=== PATIENT | female | born 1955 | race Caucasian/White ===

== ENCOUNTER → 2021-06-04 10:36 | Outpatient (BNVA) | payer MEDICARE, SELFPAY | PROVIDERS: PCP Internal Medicine; Visit Provider Internal Medicine Pulmonary Disease | DX: J84.9 Interstitial pulmonary disease, unspecified (principal); J44.9 Chronic obstructive pulmonary disease, unspecified; G47.33 Obstructive sleep apnea (adult) (pediatric); R05.3 Chronic cough; R06.00 Dyspnea, unspecified; K21.9 Gastro-esophageal reflux disease without esophagitis; E66.01 Morbid (severe) obesity due to excess calories; Z99.81 Dependence on supplemental oxygen | CPT/HCPCS: 94618; 99202 ==

== ENCOUNTER 2021-06-12 10:41 | Outpatient (REF) | payer MEDICARE, SELFPAY ==
--- NOTE | ~2021-06-12 | CT_ITS ---
EXAMINATION: CT CHEST WITHOUT CONTRAST CLINICAL INFORMATION: Interstitial pulmonary disease. COMPARISON: None TECHNIQUE: Multidetector volumetric CT imaging of the chest was done. Axial MIP volume rendering provided. Sagittal and coronal reformatted images were obtained. This CT examination was performed using dose optimization techniques as appropriate, variously including the following: *Automated exposure control *Adjustment of mA and/or kV according to patient size (this includes techniques or standardized protocols for targeted exams where dose is matched to indication/reason for exam; i.e. extremities or head) *Use of iterative reconstruction technique DLP: 325 mGy-cm FINDINGS: SUPERVISOR FISH BAIT PROCESSING: Well expanded lungs LUNGS: The lungs are well-expanded with platelike atelectasis in the lingula and subpleural patchy opacity left lower lobe laterally likely scarring. Atelectasis or scarring is seen in the right medial and lateral basal segment. There is 2 mm nodule left lower lobe axial image 137/6 no MEDIASTINUM: The heart size and the great vessels are normal caliber. There is a 1.6 cm right pretracheal lymph node with central fatty lucency likely a normal lymph node. No additional lymph nodes seen. Central trachea and the bronchi are widely patent. There is no pericardial effusion. PLEURA: There is no pleural effusion. No pleural mass or thickening. AXILLA: No lymphadenopathy. UPPER ABDOMEN: Visualized liver, spleen, pancreas and bilateral adrenal glands are unremarkable. OSSEOUS STRUCTURES: There is moderate ventral spondylosis mid and lower dorsal spine. No lytic or sclerotic process seen. CT/CT chest wo con IMPRESSION: 2 mm nodule left lower lobe axial image 137/6. No interstitial thickening. There is however minimal subpleural parenchymal opacity left lower lobe likely scarring. There is atelectatic changes or scarring in the right medial and lateral basal segment of lower lobe. Fleischner guidelines were followed.
== END 2021-06-12 10:42 | disposition home or self-care (01) ==
LOC: HO.CT 10:41
PROVIDERS: Visit Provider Internal Medicine Pulmonary Disease
DX: J84.9 Interstitial pulmonary disease, unspecified (principal)
CPT/HCPCS: 71250

== ENCOUNTER → 2021-06-18 10:48 | Outpatient (REF) | payer MEDICARE, SELFPAY | LOC: HO.SL 10:48 | PROVIDERS: PCP Internal Medicine; Visit Provider Internal Medicine Pulmonary Disease | DX: G47.33 Obstructive sleep apnea (adult) (pediatric) (principal) | CPT/HCPCS: 95806 ==

== ENCOUNTER 2021-07-05 09:47 | Outpatient (REF) | payer MEDICARE, SELFPAY ==
--- NOTE | 2021-07-05 15:14 | PFT_ITS ---
FLOWS: FEV1 66% of predicted at 1.46 L. FVC 59% of predicted at 1.72 L. FEV1 to FVC ratio of 0.85. No bronchodilator response. LUNG VOLUMES: Total lung capacity 72% of predicted at 3.47 L. Residual volume 70% of predicted at 1.41 L. Slow vital capacity 74% of predicted at 2.05 L. Expiratory reserve volume 11% of predicted at 0.08 L. Diffusion capacity is moderately decreased, diffusion capacity adjust to being mildly decreased after correction for alveolar ventilation. IMPRESSION: Moderate restrictive ventilatory defect with no bronchodilator response. Decreased expiratory reserve volume suggests extrathoracic restriction secondary to abdominal obesity. Decreased diffusion capacity in combination with restrictive ventilatory defect suggests underlying pulmonary parenchymal disease. Clinical correlation is advised. MD NOHEMY Berrios/MODL / [id number]
== END 2021-07-05 09:48 | disposition home or self-care (01) ==
LOC: HO.RESP 09:47
PROVIDERS: PCP Internal Medicine; Visit Provider Internal Medicine Pulmonary Disease
DX: R06.00 Dyspnea, unspecified (principal); J44.9 Chronic obstructive pulmonary disease, unspecified
CPT/HCPCS: 94060; 94727; 94729

== ENCOUNTER → 2021-07-17 09:49 | Outpatient (BNVA) | payer MEDICARE, SELFPAY | PROVIDERS: PCP Internal Medicine; Visit Provider Internal Medicine Pulmonary Disease | DX: J44.9 Chronic obstructive pulmonary disease, unspecified (principal); R06.00 Dyspnea, unspecified; G47.33 Obstructive sleep apnea (adult) (pediatric); R05.3 Chronic cough; Z99.81 Dependence on supplemental oxygen | CPT/HCPCS: 99212 ==

== ENCOUNTER → 2021-07-24 13:48 | Outpatient (REF) | payer MEDICARE, SELFPAY ==
--- NOTE | 2021-07-24 13:50 | CA_ITS ---
Transthoracic Echocardiogram Patient (Last, First, Middle): Lori Rivas A Gender: Female Date of : 1955 Age: 65 Procedure Date: 07/24/2021 Procedure Type: Transthoracic Echocardiogram Location: OP Height: 157.48 cm Weight: 133.36 kg BSA: 2.25 m2 Heart Rate: bpm BP: 125 / 80 mmHg Bench Precision Assembler: YR/TO Referring MD: Elier Morrissey MD School Cleaner: Austen Stevens MD Symptoms: R06.00 - Dyspnea, unspecified Study Quality: Technically Difficult/Contrast ECG Rhythm: Sinus Conclusions: - 1. Technically difficult study to interpret due to poor windows despite using of contrast 2. Low normal LV ejection fraction 50-55% with impaired relaxation filling pattern with suggestion of increased filling pressures 3. Poor visualization cardiac valves with mild mitral regurgitation 4. RV systolic pressure could not be accurately calculated 5. No gross pericardial effusion Findings Left Ventricle Normal left ventricular cavity size. There is normal left ventricular wall thickness. The left ventricular systolic function is low normal. The visually estimated ejection fraction is between 50-55%. Spectral Doppler is indicative of an impaired relaxation filling pattern. Elevated filling pressures. Abnormal septal contraction pattern, possibly related to bundle branch block. Correlate with EKG Right Ventricle Normal right ventricular cavity size. There is normal right ventricular systolic function. Atria The left atrium is normal in size. Interatrial shunt cannot be excluded. The right atrium was not well visualized. Aortic Valve The aortic valve was not well visualized. There is no aortic valve stenosis. There is no aortic valve regurgitation. Mitral Valve There is mild anterior mitral leaflet thickening. There is mild mitral annular calcification. There is mild mitral valve regurgitation. There is no mitral valve stenosis. Pulmonic Valve The pulmonic valve was not well visualized. Tricuspid Valve The tricuspid valve was not well visualized. Tricuspid regurgitation envelope is inadequate for calculation of right ventricular systolic pressure. RV systolic pressure could not be accurately calculated on this study. On some views there appeared to be high TR velocity, however this was not confirmed on other views. Consider alternative modality such as right heart catheterization if concern for pulmonary hypertension. Great Vessels All visible segments of the aorta are normal in size. The pulmonary artery was not well visualized. Venous The inferior vena cava was not well visualized. Pericardium/Pleural Widened pericardial space, unable to distinguish between adipose tissue and effusion. Prior Study Comparison No prior study available for comparison. Measurements 2D Linear Measurements IVSd: 1.04 0.6-0.9/0.6-1.0 cm LVIDd: 4.98 3.9-5.3/4.2-5.9 cm LVIDd Index: 2.21 2.4-3.2/2.2-3.1 cm/m2 LVIDs: 3.49 2.0-3.6 cm LVPWd: 1.07 0.7-1.1 cm LA Diam: 4.50 2.7-3.8/3.0-4.0 cm LAIDs Index: 2.00 1.5-2.3 cm/m2 LV Mass: 242.21 67-162/88-224 g LV Mass Index: 107.65 43-95/49-115 g/m2 LVOT Diam: 2.00 3.0+(-)1.3 cm 2D Systolic Function EF 4C: 50.40 >55% EF 2C: 58.80 >55% EF BiP: 54.90 >55% Mitral Valve MV Pk E: 0.94 MV PK A: 1.14 MV Decel Time: 196.00 E/A: 0.80 E'Lateral: 5.98 E'Medial: 4.03 E/E' Med: 23.30 E/E' Lat: 15.70 PHT: 57.00 MVA PHT: 3.86 Decel [place]: 4.80 Aortic Valve AoV Pk Song: 1.53 AoV Mn Song: 1.07 AoV VTI: 0.34 AoV Pk Grad: 9.00 Aov Mn Grad: 5.00 LUH Cont.VTI: 2.01 LVOT LVOT Pk Song: 0.91 LVOT Mn Song: 0.68 LVOT VTI: 0.22 LVOT Pk Grad: 3.00 LVOT Mn Grad: 2.00 LVOT Diam: 2.00 LVOT Area: 3.14 Diastolic Function MV Pk E: 0.94 MV Pk A: 1.14 E/A: 0.80 E'Medial: 4.03 E/E' Med: 23.30 E' Laterial: 5.98 E/E' Lat: 15.70 Right Ventricle TAPSE (mm): 27.00 TVS' Song: 10.90 Great Vessels Aorta Ao Asc: 3.20 2.1-3.4 cm Ao Arch: 3.50 Updated in Other Vendor System with Status of Final Austen Stevens MD electronically signed on 07/25/2021 8:52:46 AM with status of Final
== END ==
LOC: HO.CARD 13:48
PROVIDERS: PCP Internal Medicine; Visit Provider Internal Medicine Pulmonary Disease
DX: R06.00 Dyspnea, unspecified (principal)
CPT/HCPCS: 93306; Q9957

== ENCOUNTER → 2021-08-23 09:48 | Outpatient (BNVA) | payer MEDICARE, SELFPAY | PROVIDERS: PCP Internal Medicine; Visit Provider Internal Medicine Pulmonary Disease | DX: J44.9 Chronic obstructive pulmonary disease, unspecified (principal); R06.00 Dyspnea, unspecified; J84.9 Interstitial pulmonary disease, unspecified; G47.33 Obstructive sleep apnea (adult) (pediatric); R05.3 Chronic cough; Z99.81 Dependence on supplemental oxygen | CPT/HCPCS: 99212 ==

== ENCOUNTER → 2021-10-03 11:04 | Outpatient (BNVA) | payer MEDICARE, SELFPAY | PROVIDERS: PCP Internal Medicine; Visit Provider Internal Medicine Pulmonary Disease | DX: R05.3 Chronic cough (principal); R06.00 Dyspnea, unspecified; Z99.81 Dependence on supplemental oxygen | CPT/HCPCS: 99212 ==

== ENCOUNTER → 2021-11-22 11:18 | Outpatient (BNVA) | payer MEDICARE, SELFPAY | PROVIDERS: PCP Internal Medicine; Visit Provider Internal Medicine Pulmonary Disease | DX: R06.00 Dyspnea, unspecified (principal); R05.3 Chronic cough; J44.9 Chronic obstructive pulmonary disease, unspecified; Z99.81 Dependence on supplemental oxygen | CPT/HCPCS: 99212 ==

== ENCOUNTER → 2022-01-21 10:17 | Outpatient (BNVA) | payer MEDICARE, SELFPAY | PROVIDERS: PCP Internal Medicine; Visit Provider Internal Medicine Pulmonary Disease | DX: R05.3 Chronic cough (principal); R06.00 Dyspnea, unspecified; Z99.81 Dependence on supplemental oxygen | CPT/HCPCS: 99212 ==

== ENCOUNTER → 2022-07-31 13:57 | Outpatient (BNVA) | payer MEDICARE, SELFPAY | PROVIDERS: PCP Internal Medicine; Visit Provider Internal Medicine Pulmonary Disease | DX: R06.00 Dyspnea, unspecified (principal); Z99.81 Dependence on supplemental oxygen; Z87.891 Personal history of nicotine dependence | CPT/HCPCS: 99212 ==

== ENCOUNTER → 2022-09-29 13:50 | Outpatient (BNVA) | payer MEDICARE, SELFPAY | PROVIDERS: PCP Internal Medicine; Referring Provider Internal Medicine; Visit Provider Internal Medicine Cardiovascular Disease | DX: R06.00 Dyspnea, unspecified (principal); J44.9 Chronic obstructive pulmonary disease, unspecified; E66.01 Morbid (severe) obesity due to excess calories; Z68.43 Body mass index [BMI] 50.0-59.9, adult | CPT/HCPCS: 93005; 99202 ==

== ENCOUNTER → 2022-10-13 08:15 | Outpatient (REF) | payer MEDICARE, SELFPAY ==
--- NOTE | ~2022-10-13 | NM_ITS ---
Myocardial perfusion study Indication: Dyspnea on exertion to evaluate for myocardial ischemia Technique: The patient was brought in for a Lexiscan perfusion study on 10/12/2022. Patient performed low-level exercise and was injected 0.4 mg of Lexiscan intravenously. Within a minute of injection, 40 mCi of sestamibi was given intravenously. Images were obtained using the SPECT gamma camera interlaced with the gating device. Images were obtained in supine position. Resting perfusion study was performed on 10/14/2022. Patient was administered 40 mCi of sestamibi intravenously at rest. Images were then obtained in supine position. Images obtained with and without CT attenuation. Total DLP 170 mGy-cm. Images were processed with the software and compared side to side in short axis, horizontal long axis and vertical long axis views. Findings: Both stress and rest perfusion study was suboptimal due to intense subdiaphragmatic uptake interfering with inferior wall uptake. The stress perfusion study showed on non attenuated images there is moderately reduced uptake in the septum predominantly inferoseptal area as well as moderately reduced uptake in the inferior wall of the LV myocardium on the ischial subdiaphragmatic uptake. Remainder of the LV myocardium is normally perfused. There is suggestion of left ventricle hypertrophy. Attenuation corrected images are suboptimal obtained for evaluation the inferior wall. There is moderately reduced uptake in the septum and severely reduced uptake in the distal septum.. The gated study shows normal LV systolic function with calculated LVEF of 54%. LV cavity is normal in size. The gated study shows normal systolic wall thickening and contraction of segments. Resting study shows no change in perfusion pattern compared to stress perfusion study. Gating at rest reveals normal systolic wall motion with ejection fraction at 48%. The findings are consistent with suboptimal study due to inferior wall being obscured by subdiaphragmatic uptake. There is fixed septal defect, and nontransmural myocardial infarction cannot be entirely ruled out.. NM/NM taylor perf SPECT rest & str Impression: 1. Myocardial perfusion imaging study shows suboptimal study with poor evaluation inferior wall with fixed septal defect which could represent nontransmural infarct 2. Gated LVEF is 54% 3. Transient ischemic dilatation not present EKG is nondiagnostic for ischemia
--- NOTE | 2022-10-13 09:31 | CA_ITS ---
Acquisition Time: 2022-10-13 08:43:30 Total Exercise Time: 00:02:00 Test Indications: DYSPNEA ON EXERTION Medications: ALLOPURINOL INSULIN CARVEDILOL Protocol: LEXISCAN Max HR: 088 BPM 57% of Pred: 153 BPM Max BP: 138/080 mmHG Max Work Load: 1.0 METS Pharmacological stress test with Lexiscan injection, while sitting, with mild increase in sob, no chest discomfort, without arrythmia, with normotensive response to injection, with nondiagnostic EKG for ischemia. Nuclear images pending. Test reviewed with Dr Stevens Referred By: Austen Stevens Overread By: PANDA BARNES
== END ==
LOC: HO.CARD 08:15
PROVIDERS: PCP Internal Medicine; Visit Provider Internal Medicine Cardiovascular Disease
DX: R06.00 Dyspnea, unspecified (principal)
CPT/HCPCS: 78452; 93017; A9500; J0280; J2785

== ENCOUNTER → 2022-11-21 14:07 | Outpatient (BNVA) | payer MEDICARE, SELFPAY | PROVIDERS: PCP Internal Medicine; Visit Provider Nurse Practitioner Family | DX: R06.00 Dyspnea, unspecified (principal); I44.7 Left bundle-branch block, unspecified; E66.01 Morbid (severe) obesity due to excess calories; R94.39 Abnormal result of other cardiovascular function study; J96.10 Chronic respiratory failure, unspecified whether with hypoxia or hypercapnia; Z99.81 Dependence on supplemental oxygen | CPT/HCPCS: 99212 ==

== ENCOUNTER 2023-07-02 09:48 | Outpatient (AMB) | payer MEDICARE, SELFPAY ==
[2023-07-02 09:54] VITALS: BP 130/64; PULSE 66; BMI 54.2
--- NOTE | 2023-07-02 09:54 | A.OFFVIS_ITS ---
Intake Vital Signs 07/02/23 09:54 Height 5 ft 2 in Weight 296 lb 4.82 oz BMI 54.2 BP 130/64 Blood Pressure Location Rt brachial Position Sitting Pulse 66 Pulse Source Pulse Oximeter Intake Visit Reasons: 6 month follow-up Transit Clerk Required: No Allergies doxycycline Allergy (Unknown, Verified 07/02/23 09:56) Unknown empagliflozin [From Jardiance] Allergy (Unknown, Verified 07/02/23 09:56) Unknown sitagliptin [From Januvia] Adverse Reaction (Intermediate, Verified 07/02/23 09:56) pancreatitis Medication List - Last Reconciled 07/02/23 by Isabel Rizzo, PUPPY TRAINER-C allopurinol 100 mg PO BID carvedilol 3.125 mg PO BID famotidine (Pepcid) 20 mg PO BID furosemide 20 mg PO BID insulin glargine (Lantus Solostar U-100 Insulin) 50 units subcut BEDTIME insulin lispro (Humalog KwikPen (U-100) Insulin) subcut levothyroxine 25 mcg PO DAILY metformin 500 mg PO BID pantoprazole 40 mg PO BID pregabalin 300 mg PO BID rosuvastatin 20 mg PO BEDTIME valsartan 320 mg PO DAILY warfarin 10 mg PO DAILY HPI 6 month follow-up HPI Details Lori is a 68-year-old female with past medical history of morbid obesity, COPD, chronic respiratory failure with continual O2 supplement, left bundle branch block presents for follow-up. Today she reports that she continues to have chronic shortness of breath and wears her O2 continually. She does not feel that her breathing has worsened since her last visit in December. When she is resting and watching TV she will take her oxygen off and notices that her oxygen saturations remain in the high 90s. She has drops in her saturations with walking and knows to wear her oxygen at all times with physical activity. No chest discomfort at rest or with act ivity. No palpitations, lightheadedness, presyncope, syncope, falls. No PND, orthopnea or edema. Sleeps with 2 pillows and lays on her side which is her norm. Takes all meds as directed. [facility] Surgical History History of carpal tunnel release Hx of knee surgery Family History Father Diabetes Mother Afib Sister Cardiomyopathy Social History Household Members: Spouse Years Smoked: 15 Second Hand Smoke Exposure: No Review of Systems Const All systems reviewed & are unremarkable except as noted in HPI and below ENT Denies dizziness Card Denies chest pain, Denies chest pain at rest, Denies chest pain with activity, Denies rapid heart rate, Denies pedal edema, Denies edema, Denies leg edema, Denies lightheadedness, Denies palpitations, Reports dyspnea, Reports dyspnea on exertion and Denies orthopnea Resp Denies cough, Reports dyspnea and Reports dyspnea on exertion GI Denies hematochezia and Denies change in stool character Musc Details: uses walker Reports abnormal gait, Denies limited range of motion, Reports muscle cramps, Denies muscle weakness, Denies numbness, Denies radiating pain into limb, Denies stiffness and Denies tingling Neuro Reports abnormal gait, Denies dizziness, Denies numbness and Denies tingling Endo Denies palpitations Physical Exam Vital Signs: Last Vital Signs Pulse 66 07/02/23 09:54 BP 130/64 07/02/23 09:54 BMI result Body Mass Index 54.2 Const Other: morbidly obese General: cooperative, comfortable and no acute distress Orientation/consciousness: patient oriented x3 Neck Neck: Yes normal visual inspection and Yes no JVD Resp Effort & Inspection: normal respiratory effort Auscultation: clear to auscultation bilaterally, no crackles, no rales, no rhonchi and no wheezes Cardio Jugular venous distension: no JVD Rate: regular rate Rhythm: regular rhythm Heart sounds: S1 normal heart sound present, S2 normal heart sound present, no murmurs and no rubs Neuro General: patient oriented x3 Extrem General: Yes normal to inspection, No no pedal edema and No calf tenderness Psych Appearance: grossly normal Mental Status: mental status grossly normal Speech and movement: Normal speech and movement present Assessment & Plan Assessment & Plan (1) Dyspnea on exertion: Code(s): R06.00 - Dyspnea, unspecified Plan: Shortness of breath with exertion which is likely multifactorial in nature. She has morbid obesity, COPD with remote history of smoking. Chronic respiratory failure with hypoxia and need for chronic O2 use. Last echocardiogram done on 07/24/2021 showed EF 50-55% with increased filling pressures. She has a chronic left bundle branch block. On prior visit Dr. Stevens discussed doing a diagnostic cardiac catheterization with right heart pressures and she declined. She did pursue a pharmacological nuclear stress test on 10/14/2022 showing suboptimal study. Poor evaluation of the inferior wall, fixed septal defect indicating possible not nontransmural infarct. No mention of ischemia. Possibility of prior HI not excluded. She recalls having concerning chest discomfort on a specific day in 2015. Unable to say whether that was an actual HI at that time or not. This is not the sole cause of her shortness of breath and hypoxia. Currently with no ischemic findings we will continue with risk factor modification as her primary cardiology treatment plan. She is not on aspirin as she is on Coumadin for prior CVA. She is on rosuvastatin with ideal LDL goal less than 100, carvedilol, valsartan, Lasix. Will have her continue these meds without change. Benefits of weight loss, increasing physical activity, low-salt det reviewed. Cardiology follow-up in 6 months, sooner if needed (2) Abnormal nuclear stress test: Code(s): R94.39 - Abnormal result of other cardiovascular function study Plan: As above (3) Chronic respiratory failure: Code(s): J96.10 - Chronic respiratory failure, unspecified whether with hypoxia or hypercapnia Plan: Follows with pulmonology (4) Morbid obesity: Code(s): E66.01 - Morbid (severe) obesity due to excess calories Plan: As above (5) Supplemental oxygen dependent: Code(s): Z99.81 - Dependence on supplemental oxygen Plan: As above (6) Left bundle branch block: Code(s): I44.7 - Left bundle-branch block, unspecified Plan: Chronic left bundle branch block, noted on EKG. EF 50-55% on prior echo, 2021. Left bundle branch block can contribute to reduced EF. Will recheck echo prior to next visit. Plan Time spent on chart review, documentation, interview and assessment Orders: Orders CA echo transthoracic complete 5 Months I44.7 - Left bundle-branch block, unspecified, J96.10 - Chronic respiratory failure, unspecified whether with hypoxia or hypercapnia Coding Level of Care Code Est Pt Level 3 (41702) Diagnoses Dyspnea on exertion R06.00 Abnormal nuclear stress test R94.39 Chronic respiratory failure J96.10 Morbid obesity E66.01 Supplemental oxygen dependent Z99.81 Left bundle branch block I44.7 Time Spent (min) 24
== END 2023-07-02 10:40 | disposition home or self-care (01) ==
PROVIDERS: PCP Internal Medicine; Visit Provider Nurse Practitioner Family
DX: J96.10 Chronic respiratory failure, unspecified whether with hypoxia or hypercapnia (principal); Z99.81 Dependence on supplemental oxygen; R94.39 Abnormal result of other cardiovascular function study; E66.01 Morbid (severe) obesity due to excess calories; I44.7 Left bundle-branch block, unspecified
CPT/HCPCS: 99213

== ENCOUNTER → 2023-07-02 09:48 | Outpatient (BNVA) | payer MEDICARE, SELFPAY | PROVIDERS: PCP Internal Medicine; Visit Provider Nurse Practitioner Family | DX: R06.00 Dyspnea, unspecified (principal); R94.39 Abnormal result of other cardiovascular function study; J96.10 Chronic respiratory failure, unspecified whether with hypoxia or hypercapnia; I44.7 Left bundle-branch block, unspecified; E66.01 Morbid (severe) obesity due to excess calories; Z99.81 Dependence on supplemental oxygen; Z68.43 Body mass index [BMI] 50.0-59.9, adult | CPT/HCPCS: 99212 ==

== ENCOUNTER 2023-08-04 10:00 | Outpatient (AMB) | payer MEDICARE, SELFPAY ==
[2023-08-04 10:02] VITALS: BP 140/72; PULSE 66; O2SAT 93; BMI 53.9
--- NOTE | 2023-08-04 10:02 | MHC.OFFVIS ---
Intake Vital Signs 08/04/23 10:02 Height 5 ft 2 in Weight 294 lb 8.348 oz BMI 53.9 BP 140/72 H Blood Pressure Location Rt brachial Position Sitting Pulse 66 Pulse Source Doppler Pulse Oximetry (%) 93 Oxygen Delivery Method Room Air Intake Visit Reasons: dyspnea Allergies doxycycline Allergy (Unknown, Verified 08/04/23 10:09) Unknown empagliflozin [From Jardiance] Allergy (Unknown, Verified 08/04/23 10:09) Unknown sitagliptin [From Januvia] Adverse Reaction (Intermediate, Verified 08/04/23 10:09) pancreatitis HPI dyspnea HPI Details 68-year-old lady, former 30+ pack-year smoker, quit within last 10 years, prior right-sided CVA, with underlying history of ?COPD, previously controlled on Breo, Spiriva, and albuterol MDI, also with chronic cough for the last 3 years referred for management of her cough and dyspnea.? Patient has previously been seen by doctors Wicho and Abdirashid.?Patient does complains of significant dyspnea on exertion after walking for approximately 50 yd.? She also complains of snoring and unrestful sleep, and cough productive of yellowish sputum.? She denies exposure to industrial dusts.? Patient also denies family history of lung disease.? Patient is being followed by [facility] for GERD with prior EGD, currently on PPI and H2 deshaun.? She has had CT chest that demonstrated no evidence of pulmonary fibrosis.? She completed her pulmonary function test and sleep study that showed no significant sleep apnea or fixed obstruction to the airflow.? Patient also has had conserving device trial and now is using supplemental oxygen at 2 L pulsed flow at rest and up to 6 L pulsed flow with exertion.? Patient denies any cough this time. [facility] Surgical History History of carpal tunnel release Hx of knee surgery Family History Father Diabetes Mother Afib Sister Cardiomyopathy Social History Household Members: Spouse Years Smoked: 15 Second Hand Smoke Exposure: No Review of Systems Const Denies daytime sleepiness, Denies excessive sweating, Denies fatigue, Denies fever(s), Denies lethargy, Denies malaise, Denies night sweats, Denies snoring and Denies weight loss Eyes Denies blurry vision and Denies itchy eyes ENT Denies nasal congestion, Denies post nasal drip, Denies sinus pain, Denies sinus pressure and Denies other ( Thrush) Card Denies chest pain, Denies pedal edema, Denies dyspnea, Reports dyspnea on exertion, Denies orthopnea and Denies paroxysmal nocturnal dyspnea Resp Denies cough, Denies hemoptysis, Denies excessive phlegm production, Denies dyspnea, Reports dyspnea on exertion, Denies snoring and Denies wheezing GI Denies abdominal pain and Denies heartburn Musc Denies myalgias, Denies arthralgias and Denies joint swelling Skin/Breast Denies rash Neuro Denies memory loss and Denies seizure-like activity Psych Denies abnormal sleep pattern, Denies anxiety and Denies memory loss Endo Denies excessive sweating, Denies fatigue and Denies heat intolerance Fabian/Lymph Denies easy bruising Aller/Immun Denies itchy eyes, Denies seasonal rhinorrhea and Denies wheezing Physical Exam Vital Signs: Last Vital Signs Pulse 66 08/04/23 10:02 BP 140/72 H 08/04/23 10:02 Pulse Ox 93 08/04/23 10:02 Oxygen Delivery Method Room Air 08/04/23 10:02 BMI result Body Mass Index 53.9 Const General: no acute distress and alert Nutritional Appearance: obese Orientation/consciousness: Other orientation findings ( oriented) HEENT Head: Yes atraumatic Eyes General: appearance normal, both eyes and all related structures Sclerae: sclerae normal EOM: EOMs intact bilaterally Neck Neck: Yes supple Lymphatic: no lymphadenopathy noted Resp Effort & Inspection: normal respiratory effort and no use of accessory muscles Auscultation: clear to auscultation bilaterally Cardio Rate: regular rate Rhythm: regular rhythm Heart sounds: no gallops, no murmurs and no rubs Skin General skin exam: other ( warm) Extrem General: No clubbing, No cyanosis and No edema Assessment & Plan Assessment & Plan (1) Dyspnea on exertion: Code(s): R06.00 - Dyspnea, unspecified Plan: Multifactorial with contribution from underlying obesity, cardiac, and pulmonary etiologies. Pulmonary is secondary to significant restriction from excessive weight, but no noted fixed obstruction. Continue to monitor clinically. (2) Supplemental oxygen dependent: Code(s): Z99.81 - Dependence on supplemental oxygen Plan: Continue supplemental oxygen to maintain O2 saturation above 88%. (3) Morbid obesity: Code(s): E66.01 - Morbid (severe) obesity due to excess calories Plan: Weight management options discussed with patient and brochure for weight management service provided. Coding Level of Care Code Est Pt Level 4 (05631) Diagnoses Dyspnea on exertion R06.00 Supplemental oxygen dependent Z99.81 Morbid obesity E66.01
== END 2023-08-04 10:27 | disposition home or self-care (01) ==
PROVIDERS: PCP Internal Medicine; Visit Provider Internal Medicine Pulmonary Disease
DX: R06.00 Dyspnea, unspecified (principal); Z99.81 Dependence on supplemental oxygen; E66.01 Morbid (severe) obesity due to excess calories
CPT/HCPCS: 99214

== ENCOUNTER → 2023-08-04 10:00 | Outpatient (BNVA) | payer MEDICARE, SELFPAY | PROVIDERS: PCP Internal Medicine; Visit Provider Internal Medicine Pulmonary Disease | DX: R06.00 Dyspnea, unspecified (principal); E66.01 Morbid (severe) obesity due to excess calories; Z99.81 Dependence on supplemental oxygen; Z68.43 Body mass index [BMI] 50.0-59.9, adult | CPT/HCPCS: 99212 ==

== ENCOUNTER → 2023-12-07 09:38 | Outpatient (REF) | payer MEDICARE, SELFPAY ==
--- NOTE | 2023-12-07 09:40 | CA_ITS ---
Transesophageal Echocardiogram Patient (Last, First, Middle): Lori Rivas A Gender: Female Date of : 1955 Age: 68 Procedure Date: 12/07/2023 Procedure Type: Transesophageal Echocardiogram Location: OP Height: 157.48 cm Weight: 136.08 kg BSA: 2.27 m2 Heart Rate: bpm BP: 153 / 81 mmHg First Assistant: SANDHYA Referring MD: Isabel Rizzo [employer] INTER[employer]vin[employer] Symptoms: I44.7 - Left bundle-branch block, unspecified Conclusion: ??? 1. Technically limited study 2. Normal LV ejection fraction 55-60% with mild LVH with impaired relaxation filling pattern 3. Idiv-eg-fewdwazw mitral regurgitation 4. Normal measured RV systolic pressure 5. Upper limits of normal ascending aortic size Findings Procedure Information The study quality is limited by patients body habitus. Left Ventricle Normal left ventricular cavity size. There is mildly increased left ventricular wall thickness. The left ventricular systolic function is normal. The visually estimated ejection fraction is between 55-60%. Regional wall motion abnormalities can not be excluded due to suboptimal endocardial definition. There is paradoxical septal motion consistent with a left bundle branch block. Spectral Doppler is indicative of an impaired relaxation filling pattern. E/E prime ratio is between 8 and 15 consistent with indeterminate filling pressures. Right Ventricle The right ventricle was not well visualized. There is normal right ventricular systolic function. Atria The left atrium was not well visualized. Interatrial shunt cannot be excluded. The right atrium was not well visualized. Aortic Valve The aortic valve was not well visualized. There is no aortic valve stenosis. There is no aortic valve regurgitation. Mitral Valve The mitral valve was not well visualized. There is moderate mitral annular calcification. There is mild to moderate mitral valve regurgitation. There is no mitral valve stenosis. Pulmonic Valve The pulmonic valve was not well visualized. Tricuspid Valve The tricuspid valve was not well visualized. There is trace tricuspid valve regurgitation. The right ventricular systolic pressure is normal. The right ventricular systolic pressure is 26 mmHg. Normal right atrial pressure. There is no evidence of pulmonary hypertension. Great Vessels The aorta was not well visualized. The pulmonary artery was not well visualized. Venous The inferior vena cava is normal in size. Pericardium/Pleural The pericardium was not well visualized. Prior Study Comparison Changes noted compared to prior study dated: 07/24/2021. LV systolic function marginally improved Recommendations, Care & Conclusions Recommend contrast in the future to improve endocardial definition. Measurements 2D Linear Measurements IVSd: 1.26 0.6-0.9/0.6-1.0 cm LVIDd: 4.97 3.9-5.3/4.2-5.9 cm LVIDd Index: 2.19 2.4-3.2/2.2-3.1 cm/m2 LVIDs: 3.31 2.0-3.6 cm LVPWd: 1.18 0.7-1.1 cm LA Diam: 3.90 2.7-3.8/3.0-4.0 cm LAIDs Index: 1.72 1.5-2.3 cm/m2 LV Mass: 295.47 67-162/88-224 g LV Mass Index: 130.16 43-95/49-115 g/m2 LVOT Diam: 2.00 3.0+(-)1.3 cm 2D Systolic Function EF 4C: 53.10 >55% EF 2C: 57.70 >55% EF BiP: 56.20 >55% Mitral Valve MV VTI: 0.45 MV Pk Song: 1.41 MV Mn Song: 0.75 MV Pk Grad: 8.00 MV Mn Grad: 3.00 MV Pk E: 0.96 MV PK A: 1.26 MV Decel Time: 239.00 E/A: 0.80 E'Lateral: 5.98 E'Medial: 4.90 E/E' Med: 19.50 E/E' Lat: 16.00 PHT: 70.00 MVA PHT: 3.14 MVA Continuity: 1.78 Decel Irwin: 4.00 Aortic Valve AoV Pk Song: 1.51 AoV Mn Song: 1.03 AoV VTI: 0.38 AoV Pk Grad: 9.00 Aov Mn Grad: 5.00 LUH Cont.VTI: 2.14 LVOT LVOT Pk Song: 0.99 LVOT Mn Song: 0.75 LVOT VTI: 0.26 LVOT Pk Grad: 4.00 LVOT Mn Grad: 3.00 LVOT Diam: 2.00 LVOT Area: 3.14 Diastolic Function MV Pk E: 0.96 MV Pk A: 1.26 E/A: 0.80 E'Medial: 4.90 E/E' Med: 19.50 E' Laterial: 5.98 E/E' Lat: 16.00 Right Ventricle TAPSE (mm): 23.80 TVS' Song: 11.40 Tricuspid Valve TR Pk Song: 2.41 TR Pk Grad: 23.00 RA Press: 3.00 RVSP: 26.00 Great Vessels Aorta Sinus of Valsalva: 3.63 2.0-3.5 cm Ao Asc: 3.60 2.1-3.4 cm Updated by Austen Stevens on 11:31 AM with Status of Final Austen Stevens MD electronically signed on 12/07/2023 11:31:05 AM with status of Final
== END ==
LOC: HO.CARD 09:38
PROVIDERS: PCP Internal Medicine; Visit Provider Nurse Practitioner Family
DX: I44.7 Left bundle-branch block, unspecified (principal); J96.10 Chronic respiratory failure, unspecified whether with hypoxia or hypercapnia
CPT/HCPCS: 93306

== ENCOUNTER → 2023-12-07 09:40 | Outpatient (BNV) | payer MEDICARE, SELFPAY | PROVIDERS: PCP Internal Medicine; Visit Provider Internal Medicine Cardiovascular Disease | DX: I34.0 Nonrheumatic mitral (valve) insufficiency (principal); I44.7 Left bundle-branch block, unspecified | CPT/HCPCS: 93306 ==

== ENCOUNTER 2023-12-15 10:11 | Outpatient (AMB) | payer MEDICARE, SELFPAY ==
[2023-12-15 10:18] VITALS: BP 118/67; PULSE 69; O2SAT 94; BMI 55.2
--- NOTE | 2023-12-15 10:18 | A.OFFVIS_ITS ---
Vital Signs 12/15/23 10:18 Height 5 ft 2 in Weight 302 lb 0.533 oz BMI 55.2 BP 118/67 Blood Pressure Location Rt brachial Position Sitting Pulse 69 Pulse Source Doppler Pulse Oximetry (%) 94 Oxygen Delivery Method Nasal Cannula Oxygen Flow Rate 2 Intake Visit Reasons: Dyspnea Allergies doxycycline Allergy (Unknown, Verified 12/15/23 10:21) Unknown empagliflozin [From Jardiance] Allergy (Unknown, Verified 12/15/23 10:21) Unknown sitagliptin [From Januvia] Adverse Reaction (Intermediate, Verified 12/15/23 10:21) pancreatitis HPI HPI Dyspnea: Details: 68-year-old lady, former 30+ pack-year smoker, quit within last 10 years, prior right-sided CVA, with underlying history of ?COPD, previously controlled on Breo, Spiriva, and albuterol MDI, also with chronic cough for the last 3 years referred for management of her cough and dyspnea.? Patient has previously been seen by doctors Wicho and Abdirashid.?Patient does complains of significant dyspnea on exertion after walking for approximately 50 yd.? She also complains of snoring and unrestful sleep, and cough productive of yellowish sputum. She was evaluated by [facility] with no significant changes in her symptoms.? She denies exposure to industrial dusts.? Patient also denies family history of lung disease.? Patient is being followed by [facility] for GERD with prior EGD, currently on PPI and H2 deshaun.? She has had CT chest that demonstrated no evidence of pulmonary fibrosis.? She completed her pulmonary function test and sleep study that showed no significant sleep apnea or fixed obstruction to the airflow.? Patient also has had conserving device trial and now is using supplemental oxygen at 2 L pulsed flow at rest and up to 6 L pulsed flow with exertion.? Patient did have recent bronchitic exacerbation treated by her primary care. [facility] Surgical History History of carpal tunnel release Hx of knee surgery Family History Father Diabetes Mother Afib Sister Cardiomyopathy Social History Household Members: Spouse Years Smoked: 15 Second Hand Smoke Exposure: No Review of Systems Const Denies daytime sleepiness, Denies excessive sweating, Denies fatigue, Denies fever(s), Denies lethargy, Denies malaise, Denies night sweats, Denies snoring and Denies weight loss Eyes Denies blurry vision and Denies itchy eyes ENT Denies nasal congestion, Denies post nasal drip, Denies sinus pain, Denies sinus pressure and Denies other ( Thrush) Card Denies chest pain, Denies pedal edema, Denies dyspnea, Reports dyspnea on exertion, Denies orthopnea and Denies paroxysmal nocturnal dyspnea Resp Denies cough, Denies hemoptysis, Denies excessive phlegm production, Denies dyspnea, Reports dyspnea on exertion, Denies snoring and Denies wheezing GI Denies abdominal pain and Denies heartburn Musc Denies myalgias, Denies arthralgias and Denies joint swelling Skin/Breast Denies rash Neuro Denies memory loss and Denies seizure-like activity Psych Denies abnormal sleep pattern, Denies anxiety and Denies memory loss Endo Denies excessive sweating, Denies fatigue and Denies heat intolerance Fabian/Lymph Denies easy bruising Aller/Immun Denies itchy eyes, Denies seasonal rhinorrhea and Denies wheezing Physical Exam Vital Signs: Last Vital Signs Pulse 69 12/15/23 10:18 BP 118/67 12/15/23 10:18 Pulse Ox 94 12/15/23 10:18 Oxygen Delivery Method Nasal Cannula 12/15/23 10:18 Oxygen Flow Rate 2 12/15/23 10:18 BMI result Body Mass Index 55.2 Const General: no acute distress and alert Nutritional Appearance: obese Orientation/consciousness: Other orientation findings ( oriented) HEENT Head: Yes atraumatic Eyes General: appearance normal, both eyes and all related structures Sclerae: sclerae normal EOM: EOMs intact bilaterally Neck Neck: Yes supple Lymphatic: no lymphadenopathy noted Resp Effort & Inspection: normal respiratory effort and no use of accessory muscles Auscultation: clear to auscultation bilaterally Cardio Rate: regular rate Rhythm: regular rhythm Heart sounds: no gallops, no murmurs and no rubs Skin General skin exam: other ( warm) Extrem General: No clubbing, No cyanosis and No edema Assessment & Plan Assessment & Plan (1) Chronic cough: Code(s): R05.3 - Chronic cough Category: Medical Plan: With recent exacerbation treated by primary care, now essentially resolved. Continue to monitor clinically. (2) Dyspnea on exertion: Code(s): R06.00 - Dyspnea, unspecified Category: Medical Plan: Multifactorial with contribution from underlying obesity, pulmonary, and cardiac etiologies. (3) Supplemental oxygen dependent: Code(s): Z99.81 - Dependence on supplemental oxygen Category: Medical Plan: Continue supplemental oxygen to maintain O2 saturation above 90%. (4) Abnormal CT scan, chest: Code(s): R93.89 - Abnormal findings on diagnostic imaging of other specified body structures Category: Medical Plan: Previously with concern for ILD. Will repeat CT chest and PFT. Orders: Orders CT chest wo IV con 05/27/24 R93.89 - Abnormal findings on diagnostic imaging of other specified body structures PFT pulmonary function test 05/27/24 R93.89 - Abnormal findings on diagnostic imaging of other specified body structures Coding Level of Care Code Est Pt Level 4 (43319) Complex EM visit Add On G2211 Diagnoses Chronic cough R05.3 Dyspnea on exertion R06.00 Supplemental oxygen dependent Z99.[address] scan, chest R93.89
== END 2023-12-15 10:48 | disposition home or self-care (01) ==
PROVIDERS: PCP Internal Medicine; Visit Provider Internal Medicine Pulmonary Disease
DX: R05.3 Chronic cough (principal); R06.00 Dyspnea, unspecified; Z99.81 Dependence on supplemental oxygen; R93.89 Abnormal findings on diagnostic imaging of other specified body structures
CPT/HCPCS: 99214; G2211

== ENCOUNTER → 2023-12-15 10:11 | Outpatient (BNVA) | payer MEDICARE, SELFPAY | PROVIDERS: PCP Internal Medicine; Visit Provider Internal Medicine Pulmonary Disease | DX: R05.3 Chronic cough (principal); R06.00 Dyspnea, unspecified; R93.89 Abnormal findings on diagnostic imaging of other specified body structures; Z99.81 Dependence on supplemental oxygen; Z87.891 Personal history of nicotine dependence | CPT/HCPCS: 99212 ==

== ENCOUNTER 2023-12-25 09:54 | Outpatient (AMB) | payer MEDICARE, SELFPAY ==
[2023-12-25 10:23] VITALS: BP 120/60; PULSE 76; BMI 54.8
--- NOTE | 2023-12-25 10:23 | A.OFFVIS_ITS ---
Vital Signs 12/25/23 10:23 Height 5 ft 2 in Weight 299 lb 13.259 oz BMI 54.8 BP 120/60 Blood Pressure Location Lt brachial Position Sitting Pulse 76 Pulse Source Pulse Oximeter Intake Visit Reasons: 6 m follow up Allergies doxycycline Allergy (Unknown, Verified 12/15/23 10:21) Unknown empagliflozin [From Jardiance] Allergy (Unknown, Verified 12/15/23 10:21) Unknown sitagliptin [From Januvia] Adverse Reaction (Intermediate, Verified 12/15/23 10:21) pancreatitis Medication List - Last Reconciled 12/25/23 by Isabel Rizzo, [employer]PERATOR-C albuterol sulfate 90 mcg/actuation (Ventolin HFA) inhalation carvedilol 6.25 mg PO BID famotidine (Pepcid) 20 mg PO BID furosemide 20 mg PO BID insulin glargine (Lantus Solostar U-100 Insulin) 50 units subcut BEDTIME insulin lispro (Humalog KwikPen (U-100) Insulin) subcut levothyroxine 25 mcg PO DAILY metformin 500 mg PO BID pantoprazole 40 mg PO BID pregabalin 300 mg PO BID rosuvastatin 20 mg PO BEDTIME valsartan 320 mg PO DAILY warfarin 10 mg PO DAILY HPI HPI 6 m follow up: Details: Lori is a 68-year-old female with past medical history of morbid obesity, COPD, CVA, chronic respiratory failure with continual O2 supplement, left bundle branch block presents for follow-up after recent echocardiogram. Today she reports that her breathing is overall unchanged since last visit. She has her oxygen with her but is not wearing it during the visit. She has shortness of breath with physical activity. She continues to follow with pulmonology and tells me she has some upcoming breathing tests. No chest discomfort at rest or with activity. No palpitations, lightheadedness, presyncope, syncope, falls. No PND, orthopnea or edema. Sleeps with 2 pillows and lays on her side which is her norm. Mostly sedentary. Takes all meds as directed. [facility] Surgical History History of carpal tunnel release Hx of knee surgery Family History Father Diabetes Mother Afib Sister Cardiomyopathy Social History Household Members: Spouse Years Smoked: 15 Second Hand Smoke Exposure: No Review of Systems Const All systems reviewed & are unremarkable except as noted in HPI and below Denies weakness ENT Denies dizziness Card Denies chest pain, Denies chest pain with activity, Denies syncope, Denies rapid heart rate, Denies pedal edema, Denies edema, Reports leg edema, Denies lightheadedness, Denies palpitations, Denies dyspnea, Reports dyspnea on exertion and Denies orthopnea Resp Denies cough, Denies dyspnea and Reports dyspnea on exertion GI Denies hematochezia and Denies change in stool character Musc Denies abnormal gait, Denies muscle cramps, Denies muscle weakness, Denies numbness, Denies radiating pain into limb and Denies tingling Neuro Denies abnormal gait, Denies dizziness, Denies syncope, Denies numbness, Denies tingling and Denies weakness Endo Denies palpitations Physical Exam Vital Signs: Last Vital Signs Pulse 76 12/25/23 10:23 BP 120/60 12/25/23 10:23 BMI result Body Mass Index 54.8 Const Other: morbidly obese General: cooperative, comfortable and no acute distress Orientation/consciousness: patient oriented x3 Neck Neck: Yes normal visual inspection and Yes no JVD Resp Effort & Inspection: normal respiratory effort Auscultation: clear to auscultation bilaterally, no crackles, no rales, no rhonchi and no wheezes Cardio Jugular venous distension: no JVD Rate: regular rate Rhythm: regular rhythm Heart sounds: S1 normal heart sound present, S2 normal heart sound present, no murmurs and no rubs Neuro General: patient oriented x3 Extrem General: Yes normal to inspection, No no pedal edema and No calf tenderness Psych Appearance: grossly normal Mental Status: mental status grossly normal Speech and movement: Normal speech and movement present Assessment & Plan Assessment & Plan (1) Dyspnea on exertion: Code(s): R06.00 - Dyspnea, unspecified Category: Medical Plan: Shortness of breath with exertion which is likely multifactorial in nature. She has morbid obesity, COPD with remote history of smoking. Chronic respiratory failure with hypoxia and need for chronic O2 use. Echocardiogram done on 07/24/2021 showed EF 50-55% with increased filling pressures. She has a chronic left bundle branch block. On prior visit Dr. Stevens discussed doing a diagnostic cardiac catheterization with right heart pressures and she declined. She did pursue a pharmacological nuclear stress test on 10/14/2022 showing suboptimal study. Poor evaluation of the inferior wall, fixed septal defect indicating possible not nontransmural infarct. No mention of ischemia. Possibility of prior [place] not excluded. She did undergo a repeat echocardiogram on 12/07/2023 which showed technically difficult study, EF 55-60%, mild LVH, [id number] MR, right atrial and ventricular pressures were normal. No clear cardiac cause for her shortness of breath. She will continue to follow with pulmonology. Continue with cardiac risk factor modification. She is not on aspirin as she is on Coumadin for prior CVA. She is on rosuvastatin with ideal LDL goal less than 100, carvedilol, valsartan, Lasix. No med changes made. Benefits of weight loss, increasing physical activity, low-salt det reviewed. Cardiology follow-up in 6 months, sooner if needed (2) Abnormal nuclear stress test: Code(s): R94.39 - Abnormal result of other cardiovascular function study Category: Medical Plan: As above (3) Chronic respiratory failure: Code(s): J96.10 - Chronic respiratory failure, unspecified whether with hypoxia or hypercapnia Category: Medical Plan: Follows with pulmonology (4) Morbid obesity: Code(s): E66.01 - Morbid (severe) obesity due to excess calories Category: Medical Plan: As above (5) Supplemental oxygen dependent: Code(s): Z99.81 - Dependence on supplemental oxygen Category: Medical Plan: As above (6) Left bundle branch block: Code(s): I44.7 - Left bundle-branch block, unspecified Category: Medical Plan: Chronic left bundle branch block, noted on EKG. EF 50-55% on prior echo, 2021. Repeat echo showing EF 55-60%. Left bundle branch block can contribute to reduced EF. Will follow. Plan Time spent on chart review, documentation, interview and assessment Coding Level of Care Code Est Pt Level 4 (50529) Diagnoses Dyspnea on exertion R06.00 Abnormal nuclear stress test R94.39 Chronic respiratory failure J96.10 Morbid obesity E66.01 Supplemental oxygen dependent Z99.81 Left bundle branch block I44.7 Time Spent (min) 36
== END 2023-12-25 11:08 | disposition home or self-care (01) ==
PROVIDERS: PCP Internal Medicine; Referring Provider Internal Medicine; Visit Provider Nurse Practitioner Family
DX: J96.10 Chronic respiratory failure, unspecified whether with hypoxia or hypercapnia (principal); Z99.81 Dependence on supplemental oxygen; E66.01 Morbid (severe) obesity due to excess calories; Z68.43 Body mass index [BMI] 50.0-59.9, adult; I44.7 Left bundle-branch block, unspecified; R94.39 Abnormal result of other cardiovascular function study
CPT/HCPCS: 99214

== ENCOUNTER → 2023-12-25 09:54 | Outpatient (BNVA) | payer MEDICARE, SELFPAY | PROVIDERS: PCP Internal Medicine; Visit Provider Nurse Practitioner Family | DX: R06.00 Dyspnea, unspecified (principal); R94.39 Abnormal result of other cardiovascular function study; E66.01 Morbid (severe) obesity due to excess calories; I44.7 Left bundle-branch block, unspecified; Z99.81 Dependence on supplemental oxygen; J96.10 Chronic respiratory failure, unspecified whether with hypoxia or hypercapnia; Z68.43 Body mass index [BMI] 50.0-59.9, adult | CPT/HCPCS: 99212 ==

== ENCOUNTER 2024-03-03 11:14 | Outpatient (AMB) | payer MEDICARE, SELFPAY ==
[2024-03-03 11:17] VITALS: BP 148/67; PULSE 66; O2SAT 93; BMI 55.0
--- NOTE | 2024-03-03 11:17 | MHC.OFFVIS ---
Vital Signs 03/03/24 11:17 Height 5 ft 2 in Weight 300 lb 14.896 oz BMI 55.0 BP 148/67 H Blood Pressure Location Rt brachial Position Sitting Pulse 66 Pulse Source Doppler Pulse Oximetry (%) 93 Oxygen Delivery Method Nasal Cannula Oxygen Flow Rate 2 Intake Visit Reasons: dyspnea Allergies doxycycline Allergy (Unknown, Verified 03/03/24 11:20) Unknown empagliflozin [From Jardiance] Allergy (Unknown, Verified 03/03/24 11:20) Unknown sitagliptin [From Januvia] Adverse Reaction (Intermediate, Verified 03/03/24 11:20) pancreatitis HPI HPI dyspnea: Details: 68-year-old lady, former 30+ pack-year smoker, quit within last 10 years, prior right-sided CVA, with underlying history of ?COPD, previously controlled on Breo, Spiriva, and albuterol MDI, also with chronic cough for the last 3 years referred for management of her cough and dyspnea.? Patient has previously been seen by doctors Wicho and Abdirashid.?Patient does complains of significant dyspnea on exertion after walking for approximately 50 yd.? She also complains of snoring and unrestful sleep, and cough productive of yellowish sputum. She was evaluated by [facility] with no significant changes in her symptoms.? She denies exposure to industrial dusts.? Patient also denies family history of lung disease.? Patient is being followed by [facility] for GERD with prior EGD, currently on PPI and H2 deshaun.? She has had CT chest that demonstrated no evidence of pulmonary fibrosis.? She completed her pulmonary function test and sleep study that showed no significant sleep apnea or fixed obstruction to the airflow.? Patient also has had conserving device trial and now is using supplemental oxygen at 2 L pulsed flow at rest and up to 6 L pulsed flow with exertion.? Patient did have recent bronchitic exacerbation treated by her primary care. After the last office visit patient stated that her respiratory symptoms started to worsen and she is also undergoing cardiac evaluation. [facility] Surgical History History of carpal tunnel release Hx of knee surgery Family History Father Diabetes Mother Afib Sister Cardiomyopathy Social History Household Members: Spouse Years Smoked: 15 Second Hand Smoke Exposure: No Review of Systems Const Denies daytime sleepiness, Denies excessive sweating, Denies fatigue, Denies fever(s), Denies lethargy, Denies malaise, Denies night sweats, Denies snoring and Denies weight loss Eyes Denies blurry vision and Denies itchy eyes ENT Denies nasal congestion, Denies post nasal drip, Denies sinus pain, Denies sinus pressure and Denies other ( Thrush) Card Denies chest pain, Denies pedal edema, Reports dyspnea, Reports dyspnea on exertion, Denies orthopnea and Denies paroxysmal nocturnal dyspnea Resp Denies cough, Denies hemoptysis, Denies excessive phlegm production, Reports dyspnea, Reports dyspnea on exertion, Denies snoring and Denies wheezing GI Denies abdominal pain and Denies heartburn Musc Denies myalgias, Denies arthralgias and Denies joint swelling Skin/Breast Denies rash Neuro Denies memory loss and Denies seizure-like activity Psych Denies abnormal sleep pattern, Denies anxiety and Denies memory loss Endo Denies excessive sweating, Denies fatigue and Denies heat intolerance Fabian/Lymph Denies easy bruising Aller/Immun Denies itchy eyes, Denies seasonal rhinorrhea and Denies wheezing Physical Exam Vital Signs: Last Vital Signs Pulse 66 03/03/24 11:17 BP 148/67 H 03/03/24 11:17 Pulse Ox 93 03/03/24 11:17 Oxygen Delivery Method Nasal Cannula 03/03/24 11:17 Oxygen Flow Rate 2 03/03/24 11:17 BMI result Body Mass Index 55.0 Const General: no acute distress and alert Nutritional Appearance: obese Orientation/consciousness: Other orientation findings ( oriented) HEENT Head: Yes atraumatic Eyes General: appearance normal, both eyes and all related structures Sclerae: sclerae normal EOM: EOMs intact bilaterally Neck Neck: Yes supple Lymphatic: no lymphadenopathy noted Resp Effort & Inspection: normal respiratory effort and no use of accessory muscles Auscultation: clear to auscultation bilaterally Cardio Rate: regular rate Rhythm: regular rhythm Heart sounds: no gallops, no murmurs and no rubs Skin General skin exam: other ( warm) Extrem General: No clubbing, No cyanosis and No edema Assessment & Plan Assessment & Plan (1) Dyspnea on exertion: Code(s): R06.00 - Dyspnea, unspecified Category: Medical Plan: Likely multifactorial with contribution from underlying pulmonary, cardiac, and obesity deconditioning etiologies. Also concern for pulmonary embolus, will obtain CTA chest and pulmonary function testing. (2) Abnormal CT scan, chest: Code(s): R93.89 - Abnormal findings on diagnostic imaging of other specified body structures Category: Medical Plan: Follow-up CT chest is pending. (3) Supplemental oxygen dependent: Code(s): Z99.81 - Dependence on supplemental oxygen Category: Medical Plan: Continue supplemental oxygen to maintain O2 saturation of 88-92% Coding Level of Care Code Est Pt Level 4 (27819) Complex EM visit Add On G2211 Diagnoses Dyspnea on exertion R06.[address] scan, chest R93.89 Supplemental oxygen dependent Z99.81
== END 2024-03-03 11:35 | disposition home or self-care (01) ==
PROVIDERS: PCP Internal Medicine; Visit Provider Internal Medicine Pulmonary Disease
DX: R06.00 Dyspnea, unspecified (principal); R93.89 Abnormal findings on diagnostic imaging of other specified body structures; Z99.81 Dependence on supplemental oxygen
CPT/HCPCS: 99214; G2211

== ENCOUNTER → 2024-03-03 11:14 | Outpatient (BNVA) | payer MEDICARE, SELFPAY | PROVIDERS: PCP Internal Medicine; Visit Provider Internal Medicine Pulmonary Disease | DX: R06.00 Dyspnea, unspecified (principal); R05.3 Chronic cough; J44.9 Chronic obstructive pulmonary disease, unspecified; R93.89 Abnormal findings on diagnostic imaging of other specified body structures; Z87.891 Personal history of nicotine dependence; Z86.73 Personal history of transient ischemic attack (TIA), and cerebral infarction without residual deficits; Z99.81 Dependence on supplemental oxygen | CPT/HCPCS: 99212 ==

== ENCOUNTER 2024-03-10 12:15 | Outpatient (REF) | payer MEDICARE, SELFPAY ==
--- NOTE | ~2024-03-10 | CT_ITS ---
EXAMINATION: CT ANGIOGRAM CHEST CLINICAL INFORMATION: Dyspnea. COMPARISON: June 12, 2021 TECHNIQUE: Multiple axial images were obtained through the chest after the administration of 65 mL of Omnipaque 350 intravenous contrast. No contrast reaction reported. Sagittal, coronal, and MIP oblique sagittal reformatted images were obtained on the CT workstation, uploaded to PACS, and reviewed. This CT examination was performed using dose optimization techniques as appropriate, variously including the following: *Automated exposure control *Adjustment of mA and/or kV according to patient size (this includes techniques or standardized protocols for targeted exams where dose is matched to indication/reason for exam; i.e. extremities or head) *Use of iterative reconstruction technique DLP: 290 mGy-cm FINDINGS: QUALITY OF STUDY/CONTRAST BOLUS: Satisfactory PULMONARY ARTERIES: No pulmonary emboli. THORACIC AORTA: No aneurysm. LUNG: No suspicious pulmonary nodule. No focal consolidation. PLEURA: No pleural effusion or pneumothorax. MEDIASTINUM: Normal heart size. No pericardial effusion. No hilar or mediastinal lymphadenopathy. No evidence of septal bowing or right heart strain. CORONARY ARTERY CALCIFICATION: Mild. CHEST WALL/AXILLA: No axillary or internal mammary lymphadenopathy. OSSEOUS STRUCTURES: No destructive bone lesions. UPPER ABDOMEN: No adrenal mass. No reflux of contrast into the hepatic veins to suggest elevated right heart pressures. CT/CT angio chest PE protocol IMPRESSION: No evidence of pulmonary embolus. No acute intrathoracic abnormality. Fleischner guidelines were followed. VTE: negative Electronically signed by: Monico Hartman MD 03/10/2024 04:26 PM EDT
[2024-03-10 12:53] LABS: Anion Gap 10 (12-20); Blood Urea Nitrogen 18 mg/dL (9-16); Calcium 10.2 mg/dL (8.4-10.2); Carbon Dioxide 31 mmol/L (22-29); Chloride 109 mmol/L (96-108); Estimated Glomerular Filt Rate 51; Glucose Random 146 mg/dL (60-115); Sodium 146 mmol/L (135-145)
[2024-03-10] MEDS: iohexoL 350 MG/ML 100 ML INFUS..BTL 65 ML IV (13:51)
== END 2024-03-10 12:16 | disposition home or self-care (01) ==
LOC: HO.CT 12:15
PROVIDERS: PCP Internal Medicine; Visit Provider Internal Medicine Pulmonary Disease
DX: R06.00 Dyspnea, unspecified (principal)
CPT/HCPCS: 36415; 71275; 80048; Q9967

== ENCOUNTER 2024-03-24 15:04 | Outpatient (AMB) | payer MEDICARE, SELFPAY ==
[2024-03-24 15:06] VITALS: BP 134/82; PULSE 69; O2SAT 96; BMI 54.9
--- NOTE | 2024-03-24 15:06 | A.OFFVIS_ITS ---
Vital Signs 03/24/24 15:06 Height 5 ft 2 in Weight 300 lb 5.443 oz BMI 54.9 BP 134/82 Blood Pressure Location Rt brachial Position Sitting Pulse 69 Pulse Source Doppler Pulse Oximetry (%) 96 Oxygen Delivery Method Nasal Cannula Oxygen Flow Rate 2 Intake Visit Reasons: dyspnea Allergies doxycycline Allergy (Unknown, Verified 03/24/24 15:09) Unknown empagliflozin [From Jardiance] Allergy (Unknown, Verified 03/24/24 15:09) Unknown sitagliptin [From Januvia] Adverse Reaction (Intermediate, Verified 03/24/24 15:09) pancreatitis HPI HPI dyspnea: Details: 68-year-old lady, former 30+ pack-year smoker, quit within last 10 years, prior right-sided CVA, with underlying history of ?COPD, previously controlled on Breo, Spiriva, and albuterol MDI, also with chronic cough for the last 3 years referred for management of her cough and dyspnea.? Patient has previously been seen by doctors Wicho and Abdirashid.?Patient does complains of significant dyspnea on exertion after walking for approximately 50 yd.? She also complains of snoring and unrestful sleep, and cough productive of yellowish sputum. She was evaluated by [facility] with no significant changes in her symptoms.? She denies exposure to industrial dusts.? Patient also denies family history of lung disease.? Patient is being followed by [facility] for GERD with prior EGD, currently on PPI and H2 deshaun.? She has had CT chest that demonstrated no evidence of pulmonary fibrosis.? She completed her pulmonary function test and sleep study that showed no significant sleep apnea or fixed obstruction to the airflow.? Patient also has had conserving device trial and now is using supplemental oxygen at 2 L pulsed flow at rest and up to 6 L pulsed flow with exertion.? After the last office visit patient had CT angio chest that did not demonstrate pulmonary emboli. She continues to complain of dyspnea on exertion. She denies acute exacerbations. [facility] Surgical History History of carpal tunnel release Hx of knee surgery Family History Father Diabetes Mother Afib Sister Cardiomyopathy Social History Household Members: Spouse Years Smoked: 15 Second Hand Smoke Exposure: No Review of Systems Const Denies daytime sleepiness, Denies excessive sweating, Denies fatigue, Denies fever(s), Denies lethargy, Denies malaise, Denies night sweats, Denies snoring and Denies weight loss Eyes Denies blurry vision and Denies itchy eyes ENT Denies nasal congestion, Denies post nasal drip, Denies sinus pain, Denies sinus pressure and Denies other ( Thrush) Card Denies chest pain, Denies pedal edema, Denies dyspnea, Reports dyspnea on exertion, Denies orthopnea and Denies paroxysmal nocturnal dyspnea Resp Denies cough, Denies hemoptysis, Denies excessive phlegm production, Denies dyspnea, Reports dyspnea on exertion, Denies snoring and Denies wheezing GI Denies abdominal pain and Denies heartburn Musc Denies myalgias, Denies arthralgias and Denies joint swelling Skin/Breast Denies rash Neuro Denies memory loss and Denies seizure-like activity Psych Denies abnormal sleep pattern, Denies anxiety and Denies memory loss Endo Denies excessive sweating, Denies fatigue and Denies heat intolerance Fabian/Lymph Denies easy bruising Aller/Immun Denies itchy eyes, Denies seasonal rhinorrhea and Denies wheezing Physical Exam Vital Signs: Last Vital Signs Pulse 69 03/24/24 15:06 BP 134/82 03/24/24 15:06 Pulse Ox 96 03/24/24 15:06 Oxygen Delivery Method Nasal Cannula 03/24/24 15:06 Oxygen Flow Rate 2 03/24/24 15:06 BMI result Body Mass Index 54.9 Const General: no acute distress and alert Nutritional Appearance: obese Orientation/consciousness: Other orientation findings ( oriented) HEENT Head: Yes atraumatic Eyes General: appearance normal, both eyes and all related structures Sclerae: sclerae normal EOM: EOMs intact bilaterally Neck Neck: Yes supple Lymphatic: no lymphadenopathy noted Resp Effort & Inspection: normal respiratory effort and no use of accessory muscles Auscultation: clear to auscultation bilaterally Cardio Rate: regular rate Rhythm: regular rhythm Heart sounds: no gallops, no murmurs and no rubs Skin General skin exam: other ( warm) Extrem General: No clubbing, No cyanosis and No edema Assessment & Plan Assessment & Plan (1) COPD (chronic obstructive pulmonary disease): Code(s): J44.9 - Chronic obstructive pulmonary disease, unspecified Category: Medical Plan: Pulmonary function test is pending. Underlying previously of fixed obstruction noted. Will start on empiric Anoro. Will refer to Pulmonary Rehab. (2) Supplemental oxygen dependent: Code(s): Z99.81 - Dependence on supplemental oxygen Category: Medical Plan: Continue supplemental oxygen to maintain O2 saturation above 88%. Orders: Orders Pulmonary Rehab Today J44.9 - Chronic obstructive pulmonary disease, unspecified Medications: New umeclidinium-vilanterol 62.5-25 mcg/actuation (Anoro Ellipta) 1 inh inhalation DAILY 1 ea 6RF Coding Level of Care Code Est Pt Level 4 (59604) Complex EM visit Add On G2211 Diagnoses COPD (chronic obstructive pulmonary disease) J44.9 Supplemental oxygen dependent Z99.81
== END 2024-03-24 15:27 | disposition home or self-care (01) ==
LOC: HO.HPS 15:05
PROVIDERS: PCP Internal Medicine; Visit Provider Internal Medicine Pulmonary Disease
DX: J44.9 Chronic obstructive pulmonary disease, unspecified (principal); Z99.81 Dependence on supplemental oxygen
CPT/HCPCS: 99214; G2211

== ENCOUNTER → 2024-03-24 15:04 | Outpatient (BNVA) | payer MEDICARE, SELFPAY | PROVIDERS: PCP Internal Medicine; Visit Provider Internal Medicine Pulmonary Disease | DX: J44.9 Chronic obstructive pulmonary disease, unspecified (principal); Z99.81 Dependence on supplemental oxygen | CPT/HCPCS: 99212 ==

== ENCOUNTER 2024-04-16 14:00 | Outpatient (REF) | payer MEDICARE, SELFPAY ==
[2024-04-16 10:38] VITALS: PULSE 70; O2SAT 90
--- NOTE | 2024-04-16 13:30 | PFT_ITS ---
Flows: FEV1: 67 % of predicted at 1.40 L FVC: 69 % of predicted at 1.84 L FEV1/FVC: 76 % Bronchodilator response: Present in small to medium airways only Volumes: Total lung capacity: 69 % of predicted at 3.21 L Residual volume: 69 % of predicted at 1.24 L Slow vital capacity: 69 % of predicted at 1.97 L Expiratory reserve volume: 26 % of predicted at 0.17 L Diffusion capacity: Moderately decreased, corrects to normal after adjustment for alveolar ventilation. Impression: Moderate restrictive ventilatory defect with bronchodilator response present in small to medium airways only. Decreased expiratory reserve volume suggests extrathoracic restriction likely secondary to abdominal obesity. Combination of restrictive ventilatory defect with decreased diffusion capacity suggests underlying pulmonary parenchymal disease. Clinical correlation is advised. [facility]
== END 2024-04-16 14:01 | disposition home or self-care (01) ==
LOC: HO.RESP 14:00
PROVIDERS: PCP Internal Medicine; Visit Provider Internal Medicine Pulmonary Disease
DX: R93.89 Abnormal findings on diagnostic imaging of other specified body structures (principal)
CPT/HCPCS: 94010; 94640; 94727; 94729

== ENCOUNTER 2024-05-06 11:14 | Outpatient (AMB) | payer MEDICARE, SELFPAY ==
[2024-05-06 11:20] VITALS: BP 122/58; PULSE 82; O2SAT 88; BMI 55.2
--- NOTE | 2024-05-06 11:20 | A.OFFVIS_ITS ---
Vital Signs 05/06/24 11:20 Height 5 ft 2 in Weight 302 lb BMI 55.2 BP 122/58 L Blood Pressure Location Rt brachial Position Sitting Pulse 82 Pulse Source Doppler Pulse Oximetry (%) 88 L Oxygen Delivery Method Room Air Intake Visit Reasons: dyspnea Allergies doxycycline Allergy (Unknown, Verified 05/06/24 11:27) Unknown empagliflozin [From Jardiance] Allergy (Unknown, Verified 05/06/24 11:27) Unknown sitagliptin [From Januvia] Adverse Reaction (Intermediate, Verified 05/06/24 11:) pancreatitis HPI HPI dyspnea: Details: 68-year-old lady, active 40+ pack-year smoker, followed for underlying COPD and pulmonary nodules. At the last office visit she was switched to Anoro, still with no significant response. She did have while bronchitis. Patient pulmonary function tests show no fixed obstruction with significant bronchodilator response. She continues to require supplemental oxygen. [facility] Surgical History History of carpal tunnel release Hx of knee surgery Family History Father Diabetes Mother Afib Sister Cardiomyopathy Social History Household Members: Spouse Years Smoked: 15 Second Hand Smoke Exposure: No Review of Systems Const Denies daytime sleepiness, Denies excessive sweating, Reports fatigue, Denies fever(s), Reports lethargy, Denies malaise, Denies night sweats, Denies snoring and Denies weight loss Eyes Denies blurry vision and Denies itchy eyes ENT Denies nasal congestion, Denies post nasal drip, Denies sinus pain, Denies sinus pressure and Denies other ( Thrush) Card Denies chest pain, Denies pedal edema, Denies dyspnea, Denies orthopnea and Denies paroxysmal nocturnal dyspnea Resp Reports cough, Denies hemoptysis, Reports excessive phlegm production, Denies dyspnea, Denies snoring and Denies wheezing GI Denies abdominal pain and Denies heartburn Musc Denies myalgias, Denies arthralgias and Denies joint swelling Skin/Breast Denies rash Neuro Denies memory loss and Denies seizure-like activity Psych Denies abnormal sleep pattern, Denies anxiety and Denies memory loss Endo Denies excessive sweating, Reports fatigue and Denies heat intolerance Fabian/Lymph Denies easy bruising Aller/Immun Denies itchy eyes, Denies seasonal rhinorrhea and Denies wheezing Physical Exam Vital Signs: Last Vital Signs Pulse 82 05/06/24 11:20 BP 122/58 L 05/06/24 11:20 Pulse Ox 88 L 05/06/24 11:20 Oxygen Delivery Method Room Air 05/06/24 11:20 BMI result Body Mass Index 55.2 Const General: no acute distress and alert Nutritional Appearance: obese Orientation/consciousness: Other orientation findings ( oriented) HEENT Head: Yes atraumatic Eyes General: appearance normal, both eyes and all related structures Sclerae: sclerae normal EOM: EOMs intact bilaterally Neck Neck: Yes supple Lymphatic: no lymphadenopathy noted Resp Effort & Inspection: normal respiratory effort and no use of accessory muscles Auscultation: clear to auscultation bilaterally Cardio Rate: regular rate Rhythm: regular rhythm Heart sounds: no gallops, no murmurs and no rubs Skin General skin exam: other ( warm) Extrem General: No clubbing, No cyanosis and No edema Assessment & Plan Assessment & Plan (1) COPD (chronic obstructive pulmonary disease): Code(s): J44.9 - Chronic obstructive pulmonary disease, unspecified Category: Medical Plan: Overall clinically silent with minimal response to inhaled bronchodilators. Stop Anoro, continue albuterol MDI. Results of pulmonary function test reviewed. Now with bronchitic symptoms, will treat with a course of azithromycin. (2) Supplemental oxygen dependent: Code(s): Z99.81 - Dependence on supplemental oxygen Category: Medical Plan: Continue supplemental oxygen to maintain O2 saturation of 88-93%. Medications: New albuterol sulfate 90 mcg/actuation 2 puffs inhalation 6XD PRN 1 ea 6RF shortness of breath or wheezing azithromycin For 250 mg dose pack: take 500 mg today (day 1), then 250 mg for 4 days (days 2-5) PO 6 tabs 0RF Discontinued umeclidinium-vilanterol 62.5-25 mcg/actuation (Anoro Ellipta) Discontinued Reason: Doctor's Order 1 inh inhalation DAILY 1 ea 6RF Coding Level of Care Code Est Pt Level 4 (66889) Complex EM visit Add On G2211 Diagnoses COPD (chronic obstructive pulmonary disease) J44.9 Supplemental oxygen dependent Z99.81
== END 2024-05-06 11:38 | disposition home or self-care (01) ==
PROVIDERS: PCP Internal Medicine; Visit Provider Internal Medicine Pulmonary Disease
DX: J44.9 Chronic obstructive pulmonary disease, unspecified (principal); Z99.81 Dependence on supplemental oxygen
CPT/HCPCS: 99214; G2211

== ENCOUNTER → 2024-05-06 11:14 | Outpatient (BNVA) | payer MEDICARE, SELFPAY | PROVIDERS: PCP Internal Medicine; Visit Provider Internal Medicine Pulmonary Disease | DX: J44.9 Chronic obstructive pulmonary disease, unspecified (principal); Z99.81 Dependence on supplemental oxygen | CPT/HCPCS: 99212 ==

== ENCOUNTER 2024-06-16 10:12 | Outpatient (AMB) | payer MEDICARE, SELFPAY ==
[2024-06-16 10:21] VITALS: BP 128/60; PULSE 83; O2SAT 91
--- NOTE | 2024-06-16 10:21 | MHC.OFFVIS ---
Vital Signs 06/16/24 10:21 Weight 306 lb 7.08 oz BP 128/60 Blood Pressure Location Rt brachial Position Sitting Pulse 83 Pulse Source Pulse Oximeter Pulse Oximetry (%) 91 L Oxygen Delivery Method Nasal Cannula Oxygen Flow Rate 2 Intake Visit Reasons: Dyspnea Allergies doxycycline Allergy (Unknown, Verified 06/16/24 10:26) Unknown empagliflozin [From Jardiance] Allergy (Unknown, Verified 06/16/24 10:26) Unknown sitagliptin [From Januvia] Adverse Reaction (Intermediate, Verified 06/16/24 10:26) pancreatitis Medication List - Last Reconciled 06/16/24 by Alisia Gee LPN albuterol sulfate 90 mcg/actuation 2 puffs inhalation 6XD PRN carvedilol 6.25 mg PO BID famotidine (Pepcid) 20 mg PO BID furosemide 20 mg PO BID insulin glargine (Lantus Solostar U-100 Insulin) 50 units subcut BEDTIME insulin lispro (Humalog KwikPen (U-100) Insulin) subcut levothyroxine 25 mcg PO DAILY metformin 500 mg PO BID pantoprazole 40 mg PO BID pregabalin 300 mg PO BID rosuvastatin 20 mg PO BEDTIME valsartan 320 mg PO DAILY warfarin 10 mg PO DAILY HPI HPI Dyspnea: Details: 69-year-old lady, active 40+ pack-year smoker, followed for underlying COPD and pulmonary nodules. Patient pulmonary function tests show no fixed obstruction with significant bronchodilator response. She continues to require supplemental oxygen. No recent exacerbations. No response to inhaled bronchodilators. [facility] Surgical History History of carpal tunnel release Hx of knee surgery Family History Father Diabetes Mother Afib Sister Cardiomyopathy Social History Household Members: Spouse Years Smoked: 15 Second Hand Smoke Exposure: No Review of Systems Const Denies daytime sleepiness, Denies excessive sweating, Denies fatigue, Denies fever(s), Denies lethargy, Denies malaise, Denies night sweats, Denies snoring and Denies weight loss Eyes Denies blurry vision and Denies itchy eyes ENT Denies nasal congestion, Denies post nasal drip, Denies sinus pain, Denies sinus pressure and Denies other ( Thrush) Card Denies chest pain, Denies pedal edema, Denies dyspnea, Denies orthopnea and Denies paroxysmal nocturnal dyspnea Resp Denies cough, Denies hemoptysis, Denies excessive phlegm production, Denies dyspnea, Denies snoring and Denies wheezing GI Denies abdominal pain and Denies heartburn Musc Denies myalgias, Denies arthralgias and Denies joint swelling Skin/Breast Denies rash Neuro Denies memory loss and Denies seizure-like activity Psych Denies abnormal sleep pattern, Denies anxiety and Denies memory loss Endo Denies excessive sweating, Denies fatigue and Denies heat intolerance Fabian/Lymph Denies easy bruising Aller/Immun Denies itchy eyes, Denies seasonal rhinorrhea and Denies wheezing Physical Exam Vital Signs: Last Vital Signs Pulse 83 06/16/24 10:21 BP 128/60 06/16/24 10:21 Pulse Ox 91 L 06/16/24 10:21 Oxygen Delivery Method Nasal Cannula 06/16/24 10:21 Oxygen Flow Rate 2 06/16/24 10:21 Const General: no acute distress and alert Nutritional Appearance: obese Orientation/consciousness: Other orientation findings ( oriented) HEENT Head: Yes atraumatic Eyes General: appearance normal, both eyes and all related structures Sclerae: sclerae normal EOM: EOMs intact bilaterally Neck Neck: Yes supple Lymphatic: no lymphadenopathy noted Resp Effort & Inspection: normal respiratory effort and no use of accessory muscles Auscultation: clear to auscultation bilaterally Cardio Rate: regular rate Rhythm: regular rhythm Heart sounds: no gallops, no murmurs and no rubs Skin General skin exam: other ( warm) Extrem General: No clubbing, No cyanosis and No edema Assessment & Plan Assessment & Plan (1) Supplemental oxygen dependent: Code(s): Z99.81 - Dependence on supplemental oxygen Category: Medical (2) Chronic respiratory failure: Code(s): J96.10 - Chronic respiratory failure, unspecified whether with hypoxia or hypercapnia Category: Medical Plan Results of pulmonary function test reviewed, underlying restrictive physiology secondary to morbid obesity, no obstructive ventilatory defect. No bronchodilator response and no response to empiric Anoro/albuterol MDI. Continues to require supplemental oxygen. Continue supplemental oxygen to maintain O2 saturation above 88%. Coding Level of Care Code Est Pt Level 4 (10295) Diagnoses Supplemental oxygen dependent Z99.81 Chronic respiratory failure J96.10
== END 2024-06-16 10:37 | disposition home or self-care (01) ==
PROVIDERS: PCP Internal Medicine; Visit Provider Internal Medicine Pulmonary Disease
DX: Z99.81 Dependence on supplemental oxygen (principal); J96.10 Chronic respiratory failure, unspecified whether with hypoxia or hypercapnia
CPT/HCPCS: 99214

== ENCOUNTER → 2024-06-16 10:12 | Outpatient (BNVA) | payer MEDICARE, SELFPAY | PROVIDERS: PCP Internal Medicine; Visit Provider Internal Medicine Pulmonary Disease | DX: J96.10 Chronic respiratory failure, unspecified whether with hypoxia or hypercapnia (principal); Z99.81 Dependence on supplemental oxygen | CPT/HCPCS: 99212 ==

== ENCOUNTER 2024-06-30 09:54 | Outpatient (AMB) | payer MEDICARE, SELFPAY ==
--- OUTSIDE RECORDS SUMMARY | 2024-06-30 09:59 | XMS_ITS | Referral Summary ---
Author Organization [facility] Address [address] [place] [address] Care Team Providers Care Manager Business Intelligence Name Role Phone Louise Schultz Primary Care Provider [phone] Allergies Active Allergy Reactions Criticality Noted Date Comments Cat Dander Unknown 12/20/2021 Doxycycline Psoriasis,Rash,Dermatitis 9 Sitagliptin Unknown 12/20/2021 Empagliflozin Unknown 12/20/2021 Medications allopurinoL (ZYLOPRIM) 100 mg tablet Take 100 mg by mouth 2 times a day. 12/11/2021 Active carvediloL (COREG) 3.125 mg tablet 11/12/2021 Active dicyclomine (BENTYL) 10 mg capsule 11/11/2021 Active famotidine (PEPCID) 20 mg tablet Take 20 mg by mouth. Active albuterol (PROAIR HFA,VENTOLIN HFA) 90 mcg inhaler 1 puff every 6 hours as needed. 11/22/2021 Active metFORMIN (GLUCOPHAGE) 500 mg tablet Take 500 mg by mouth 2 times a day. 12/11/2021 Active pregabalin (LYRICA) 300 mg capsule 12/06/2021 Active rosuvastatin (CRESTOR) 20 mg tablet 12/09/2021 Active valsartan (DIOVAN) 320 mg tablet 11/06/2021 Active Lacto.acidophil us-Bif.animalis 32 billion cell capsule Take 1 capsule by mouth. Active pantoprazole DR (PROTONIX) 40 mg tablet Take 40 mg by mouth 2 times a day. 12/11/2021 Active warfarin (COUMADIN) 5 mg tablet TAKE 1 TABLET BY ORAL ROUTE ONCE DAILY ON SUNDAYS AND THEN 1.5 TABLETS THE REST OF THE WEEK 10/08/2021 Active levothyroxine (SYNTHROID, LEVOTHROID) 25 mcg tablet Take 25 mcg by mouth once a day. 11/30/2021 Active HumaLOG KwikPen Insulin 100 unit/mL insulin pen SMARTSI-2 2 Unit(s) SUB-Q 3 Times Daily 11/07/2021 Active Lantus Solostar U-100 Insulin 100 unit/mL (3 mL) insulin pen Inject under the skin. 11/07/2021 Active codeine-guaiFEN esin (CHERATUSSIN AC) 20-200 mg/10 mL liquid SMARTSI Milliliter(s ) By Mouth Every 4-6 Hours PRN 11/22/2021 Active furosemide (LASIX) 20 mg tablet Take 20 mg by mouth. Active fish oil 340-1,000 mg capsule Take 1,000 mg by mouth once a day. Active cholecalciferol (VITAMIN D3) 2,000 unit capsule Take 1 capsule by mouth once a day. Active ascorbic acid (VITAMIN C) 500 mg tablet Take 500 mg by mouth 2 times a day. Active calcium carbonate (CALCIUM 600 ORAL) Take by mouth 2 (two) times a day. Active aspirin 81 mg EC tablet Take 81 mg by mouth once a day. Active Active Problems Problem Noted Date Diagnosed Date Abnormal PFTs 02/11/2022 Cough 01/28/2022 Gastroesophageal reflux disease without esophagi tis 01/28/2022 Social History Tobacco Use Types Packs/Day Years Used Date Smoking Tobacco: Former Smokeless Tobacco: Never Tobacco Cessation:Counseling Given: Not Answered Comments Unknown Sex and Gender Information Value Date Recorded Sex Assigned at Female 12/19/2021 3:57 PM EDT Legal Sex Female 10:24 AM EDT Gender Identity Female 12/19/2021 3:57 PM EDT Sexual Orientation Choose not to disclose 2021 3:57 PM EDT Last Filed Vital Signs Vital Sign Reading Time Taken Comments Blood Pressure 145/83 07/16/2022 1:53 PM EST Pulse 80 06/30/2022 11:05 AM EST Temperature - - Respiratory Rate 16 06/30/2022 11:05 AM EST Oxygen Saturation 94% 06/30/2022 11:05 AM EST Inhaled Oxygen Concentration - - Weight 131.5 kg (290 lb) 07/16/2022 1:53 PM EST Height 162.6 cm (5' 4 ) 07/16/2022 1:53 PM EST Body Mass Index 49.78 07/16/2022 1:53 PM EST Plan of Treatment Not on file Procedures * Due to [place] [employer] law, this organization might not be sharing negative HIV tests. Procedure Name Priority Date/Time Associated Diagnosis Comments CT CHEST INTERSTITIAL LUNG DISEASE/FIBROSIS Routine 06/13/2022 4:07 PM EST Interstitial lung disease (HCC) from Last 3 Months or Most Recently Relevant to Health Maintenance Results * Due to [place] [employer] law, this organization might not be sharing negative HIV tests. * CT Chest High Resolution WO Contrast (06/13/2022 4:07 PM EST) Anatomical Region Laterality Modality Body Computed Tomogra phy 06/13/2022 5:11 PM EST Impressions 06/17/2022 8:18 PM EST 1. Unchanged mild lower lung nonspecific interstitial abnormality which could represent age-related fibrosis or early interstitial lung disease. If this radiology report contains a blank impression section, it is an incomplete radiology report. ??Please contact the interpreting radiologist or applicable radiology division as soon as possible to obtain the completed interpretation. ? Workstation ID: [id number] Up-to-date CT equipment and radiation dose reduction techniques were employed. CTDIvol: 15.8 - 18.3 mGy. DLP: 1236 mGy-cm. Narrative 06/17/2022 8:18 PM EST EXAMINATION: CT CHEST HIGH RESOLUTION WO CONTRAST INDICATION: Interstitial lung disease COMPARISON: 06/12/[address] chest ?? TECHNIQUE: Helical images were obtained from the thoracic inlet to the lung bases without intravenous contrast. Coronal and sagittal reformatted images were provided. For radiation dose control at least one of the following techniques was used in this procedure: (1) Automated exposure control (2) Adjustment of the mA and/or kV according to patient size (3) Use of iterative reconstruction technique. High-resolution CT images: Thin section Inspiration, expiration, and prone views were obtained (where possible) FINDINGS: LUNGS AND PLEURA: Patent central airways. Mild bilateral pulmonary mosaic attenuation, likely chronic air trapping from small airways disease. Unchanged mild lower lung and peripheral predominant septal thickening/reticulation. ??Right lower lobe paramediastinal scarring/fibrosis secondary to osteophytes. ??No pulmonary nodules or airspace disease. No pleural effusion. LYMPH NODES: No enlarged thoracic lymph nodes. MEDIASTINUM: Normal sized heart. Mild coronary artery calcifications. Normal diameter thoracic aorta. Normal sized central pulmonary arteries. LOWER NECK: Normal UPPER ABDOMEN (limited): Normal BONES: ?? No osseous lesions. Preservation of vertebral body heights. Resulting Agency Comment [id number] Procedure Note Willy Solo MD - 06/17/2022 EXAMINATION: CT CHEST HIGH RESOLUTION WO CONTRAST INDICATION: Interstitial lung disease COMPARISON: 06/12/[address] chest TECHNIQUE: Helical images were obtained from the thoracic inlet to thelung bases without intravenous contrast. Coronal and sagittal reformattedimages were provided. For radiation dose control at least one of thefollowing techniques was used in this procedure: (1) Automated exposurecontrol (2) Adjustment of the mA and/or kV according to patient size (3)Use of iterative reconstruction technique. High-resolution CT images: Thin section Inspiration, expiration, and proneviews were obtained (where possible) FINDINGS: LUNGS AND PLEURA: Patent central airways. Mild bilateral pulmonary mosaic attenuation, likely chronic air trappingfrom small airways disease. Unchanged mild lower lung and peripheral predominant septalthickening/reticulation. Right lower lobe paramediastinalscarring/fibrosis secondary to osteophytes. No pulmonary nodules orairspace disease. No pleural effusion. LYMPH NODES: No enlarged thoracic lymph nodes. MEDIASTINUM: Normal sized heart. Mild coronary artery calcifications. Normal diameterthoracic aorta. Normal sized central pulmonary arteries. LOWER NECK: Normal UPPER ABDOMEN (limited): Normal BONES: No osseous lesions. Preservation of vertebral body heights. IMPRESSION: 1. Unchanged mild lower lung nonspecific interstitial abnormality whichcould represent age-related fibrosis or early interstitial lung disease. If this radiology report contains a blank impression section, it is anincomplete radiology report. Please contact the interpreting radiologistor applicable radiology division as soon as possible to obtain thecompleted interpretation. Workstation ID: [id number] Up-to-date CT equipment and radiation dose reduction techniques wereemployed. CTDIvol: 15.8 - 18.3 mGy. DLP: 1236 mGy-cm. Alex Moctezuma MD IMG CT PROCEDURES Final Result from Last 3 Months or Most Recently Relevant to Health Maintenance Insurance [facility] [employer] A[employer] Care Teams Manager Business Intelligence Relationship Specialty Start Date End Date Louise Schultz [facility] [address] [place] [address] [address] [place] [id number] PCP - General Internal Medicine 10/18/21
--- OUTSIDE RECORDS SUMMARY | 2024-06-30 09:59 | XMS_ITS | Clinical Summary ---
Author Organization [address] [place] [address] Address [address] [place] [address] Phone Care Team Providers Care Medical Claims Analyst Name Role Phone Min Santana Primary Care Provider [phone] Allergies Active Allergy Reactions Criticality Noted Date Comments Doxycycline 10/02/2016 Other Reaction(s): Rash/Dermatitis Empagliflozin 05/09/2020 Medications Medication Sig Dispensed Refills Start Date End Date Status dicyclomine (BENTYL) 10 mg capsule Take 2 Capsules by mouth 4 times daily (before meals and nightly). 11/11/2021 Active irbesartan (AVAPRO) 150 mg tablet Take 1 tablet (150 mg total) by mouth 1 (one) time each day. 06/14/2021 Active pantoprazole (PROTONIX) 40 mg EC tablet Take 1 tablet by mouth daily. Take in a.m. on empty stomach, wait 30 minutes and then eat to activate medication 03/25/2021 Active carvediloL (COREG) 3.125 mg tablet Take 1 tablet by mouth 2 times daily (with meals). 10/30/2020 Active furosemide (LASIX) 20 mg tablet TAKE 2 TABLETS BY MOUTH IN THE MORNING & 1 TAB IN THE AFTERNOON DAILY 2020 Active warfarin sodium (WARFARIN ORAL) Take 5 mg by mouth daily. Daily as directed. Coumadin managed by [facility]. Active CARVEDILOL ORAL Take 3.125 mg by mouth 2 times daily. Active fexofenadine (JAY) 180 mg tablet Take 180 mg by mouth daily. Active sucralfate (CARAFATE) 100 mg/mL suspension Take 10 mL by mouth 4 times daily. 03/06/2020 Active albuterol HFA (PROAIR HFA ; PROVENTIL HFA ; VENTOLIN HFA) 90 mcg/actuation inhaler 2 PUFFS INHALATION 4 TIMES A DAY NEEDED FOR WHEEZING/SHORTNESS OF BREATH 01/03/2020 Active blood sugar diagnostic (ONETOUCH ULTRA [place] [facility] 05/24/2019 Active insulin lispro (HumaLOG KwikPen Insulin) 100 unit/mL injection pen INJECT 4 12 UNITS PER SLIDING SCALE 3 TIMES A DAY BEFORE MEALS 08/07/2019 Active insulin glargine (Lantus Solostar U-100 Insulin) 100 unit/mL (3 mL) injection pen 06/03/2019 Active pen needle, diabetic 32 gauge x 5/32 needle TO INJECT INSULIN 4 TIMES DAILY 30 DAYS 07/16/2019 Active metFORMIN (GLUCOPHAGE) 500 mg tablet Take 500 mg by mouth 2 Times Daily. 07/01/2019 Active tiotropium (Spiriva Respimat) 2.5 mcg/actuation inhalation spray INHALE 2 PUFFS INTO THE LUNGS EVERY DAY. 08/04/2019 Active fluticasone furoate-vilanteroL (Breo Ellipta) 200-25 mcg/dose inhaler Inhale 1 puff by mouth 1 (one) time each day. 07/30/2019 Active pregabalin (LYRICA) 300 mg capsule Take 300 mg by mouth 2 times daily. Active baclofen (LIORESAL) 10 mg tablet Take 10 mg by mouth 3 times daily. Active albuterol 2.5 mg /3 mL (0.083 %) nebulizer solution Take 1 Vial by nebulization every 4 hours as needed. Active allopurinoL (ZYLOPRIM) 100 mg tablet Take 100 mg by mouth 2 times daily. Active amoxicillin (AMOXIL) 500 mg tablet Take 500 mg by mouth as needed. Prior to dental work Active loperamide HCl (LOPERAMIDE ORAL) Take by mouth as needed. Active Active Problems Problem Noted Date Diagnosed Date Abdominal cramping 04/07/2024 Acute pancreatitis 04/07/2024 Bilateral leg edema 04/07/2024 COPD (chronic obstructive pulmonary disease) Cough 04/07/2024 Gastroparesis 04/07/2024 Arthritis 04/07/2024 Gastritis 04/07/2024 GERD (gastroesophageal reflux disease) Hyperlipidemia 04/07/2024 Overview (04/07/2024): Last Assessment & Plan: Well controlled on present medical therapies. No changes today. Hypertension 04/07/2024 Overview (04/07/2024): Last Assessment & Plan: Well controlled on present medical therapies. No changes today. IBS (irritable bowel syndrome) 04/07/2024 Left bundle branch block 04/07/2024 Overview (04/07/2024): Last Assessment & Plan: Patient has history of intermittent LBBB. Cardiac testing in the past negative for obstructive CAD. Negative ischemic workup. Postnasal drip 04/07/2024 Tubular adenoma of colon 04/07/2024 Type 2 diabetes mellitus with diabetic neuropath y 04/07/2024 Cardiomyopathy 05/09/2020 Overview (04/07/2024): H/o NSTEMI 2019, cardiomyopathy at that time with LVEF of 45% which has since recovered. Last Assessment & Plan: Patient denies any clinical symptoms of heart failure. She is euvolemic on examiation. Continue with furosemide, coreg and irbesartan as prescribed. Last echocardiogram stable with LVEF of 50-55%. I've asked the patient to call if they develop worsening symptoms of heart failure such as increased shortness of breath, new or worsening cough, increased swelling in the legs or ankles, or weight gain of more than 2 pounds in one day or 4 pounds in one week. Deep vein thrombosis of lower extremity 05/09/20 20 Overview (04/07/2024): Deep venous thrombosis of lower extremity H/O non-ST elevation myocardial infarction (NSTE NV) 05/09/2020 Overview (04/07/2024): NSTEMI in 2019 in the setting of sepsis. Coronary angiogram revealed no obstructive coronary disease. Last Assessment & Plan: Patient denies any exertional chest pain. Exertional shortness of breath and chronic cough are unchanged. She is following with pulmonolgist and ENT for further testing. We discussed how her weight can also be a factor in exacerbating her symptoms. Continue with beta deshaun and statin as prescribed. Obesity 05/09/2020 Overview (04/07/2024): Last Assessment & Plan: We discussed the importance of a healthy BMI. Patient given written materials for weight loss strategies and heart healthy diet. Patient encouraged to discuss further with PCP. 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 Surgical History Surgery Date Site/Laterality Comments CARPAL TUNNEL RELEASE PROCEDURE: HISTORICAL CARPAL TUNNEL REL TOTAL KNEE ARTHROPLASTY Bilateral PROCEDURE: HI ARTHRP KNE CONDYLE&PLATU MEDIAL&LAT COMPARTMENTS TUBAL LIGATION PROCEDURE: HISTORICAL TUBAL LIGATION DENTAL SURGERY PROCEDURE: HI UNLISTED PROCEDURE DENTOALVEOLAR STRUCTURES COLONOSCOPY PROCEDURE: HISTORICAL COLONOSCOPY; COMMENT: Performed in 2006 COLONOSCOPY 02/22/2020 PROCEDURE: HISTORICAL COLONOSCOPY; COMMENT: tubular adenoma UPPER GASTROINTESTINAL ENDOSCOPY 02/22/2020 PROCEDURE: HI UPPER GI ENDOSCOPY PERFORMED; COMMENT: normal CARDIAC CATHETERIZATION PROCEDURE: HISTORICAL CARDIAC CATH Medical History Medical History Date Comments Hypertension DX:Hypertension Hyperlipidemia DX:Hyperlipidemi a COPD (chronic obstructive pu lmonary disease) ([facility]) DX:COPD (chronic obstructive pulmonary disease) ([facility]) Arthritis DX:Arthritis IBS (irritable bowel syndrome) D X:IBS (irritable bowel syndrome) GERD (gastroesophageal reflu x disease) DX:GERD (gastroesophageal re flux disease) Gastroparesis DX:Gastroparesis Acute acalculous cholecystitis D X:Acute acalculous cholecystitis Acute pancreatitis DX:Acute panc reatitis Stroke (cerebrum) ([facility]) 2015 DX:S troke (cerebrum) ([facility]) Bilateral leg edema DX:Bilateral leg edema Left bundle branch block DX:Left bundle branch block Type 2 diabetes mellitus wit h diabetic neuropathy ([facility]) DX:Type 2 diabetes melli tus with diabetic neuropathy ([facility]) Diabetic neuropathy ([facility]) DX :Diabetic neuropathy (HCC) Gout 03/21/2019 DX:Gout History of bilateral knee replacement 03/21/2019 DX:History of bilateral knee replacement History of sepsis 03/21/2019 DX:History of sepsis; COMMENT: 12/08/2018 hospitalization in [place]. Cough DX:Cough Postnasal drip DX:Postnasal dri p Abdominal cramping DX:Abdominal cramping History of colon polyps DX:Histo ry of colon polyps Tubular adenoma of colon DX:Tubu lar adenoma of colon Gastritis DX:Gastritis Family History Medical History Relation Name Comments Diabetes Father Heart failure Father Kidney failure Father Other: Other Mother Heart failure Sister 1 Melba No Known Problems Sister 2 Gricelda Diabetes Sister 3 Ara Hypertension Sister 3 Ara Relation Name Status Comments Father Mother Sister 1 Melba Alive Sister 2 Gricelda Alive Sister 3 Ara Alive Social History Tobacco Use Types Packs/Day Years Used Date Smoking Tobacco: Former Smokeless Tobacco: Former Alcohol Use Standard Drinks/Week Comments Not Asked 0 (1 standard drink = 0.6 oz pur e alcohol) Sex and Gender Information Value Date Recorded Sex Assigned at Not on file Gender Identity Not on file Sexual Orientation Not on file Obstetrics History Plan of Treatment Health Maintenance Due Date Last Done Comments Breast Cancer Screening 1955 Diabetes: Annual GFR (Glomer ular Filtration Rate) 1955 Pneumococcal Vaccine: 65+ Ye ars (1 of 2 - PCV) 1961 Diabetes: Annual Foot Exam 1965 Diabetes: Annual Retina Eye Exam 1965 DTaP,Tdap,and Td Vaccines (1 - Tdap) 1974 Zoster Vaccines (1 of 2) 2005 RSV Immunization Patients 60 + Years Old (1 - Risk 60-74 years 1-dose series) 2015 Cholesterol Screening (Lipid Panel) 05/03/2022 Depression Screening 05/03/2022 Falls Risk Assessment 05/03/2022 Hepatitis C Screening 05/03/2022 Osteoporosis Screening (Bone Density Screening) 05/03/2022 Social Influencers of Health Screening 05/03/2022 Diabetes: Annual Urine Albumin-Creatinine Ratio (uACR) 05/09/2022 Diabetes: Blood Sugar Contro l Test (HGBA1C) 05/09/2022 Hypertension/CHF/CAD Annual BMP Blood Test 05/09/2022 COVID-19 Vaccine ( - 2023-2 5 season) 2024 Influenza Vaccine (#1) 2024 Colorectal Cancer Screening: Colonoscopy 02/21/2025 02/22/2020 HIB Vaccines Aged Out No longer eligi ble based on patient's age to complete this topic HPV Vaccines Aged Out No longer eligi ble based on patient's age to complete this topic Hepatitis A Vaccines Aged Out No long er eligible based on patient's age to complete this topic Hepatitis B Vaccines Aged Out No long er eligible based on patient's age to complete this topic IPV Vaccines Aged Out No longer eligi ble based on patient's age to complete this topic MMR Vaccines Aged Out No longer eligi ble based on patient's age to complete this topic Meningococcal ACWY Vaccine Aged Out N o longer eligible based on patient's age to complete this topic RSV Immunization Patients Un roney 20 months Aged Out No longer eligible b ased on patient's age to complete this topic Varicella Vaccines Aged Out No longer eligible based on patient's age to complete this topic Procedures Procedure Name Priority Date/Time Associated Diagnosis Comments COLONOSCOPY Routine 02/22/2020 from Last 3 Months or Most Recently Relevant to Health Maintenance Results * Colonoscopy (02/22/2020) Colonoscopy no interpretation , abstracted Anatomical Region Laterality Modality Other Historical Provider MD BALBIR Pacheco from Last 3 Months or Most Recently Relevant to Health Maintenance Care Teams Medical Claims Analyst Relationship Specialty Start Date End Date Min Santana DO [address] [place] [address] PCP - General 06/19/09
--- OUTSIDE RECORDS SUMMARY | 2024-06-30 09:59 | XMS_ITS | Clinical Summary ---
Author Organization [facility] Address [address] [place] [address] Care Team Providers Care Shellfish Processing Machine Tender Name Role Phone Louise Schultz Primary Care Provider [phone] Allergies Active Allergy Reactions Criticality Noted Date [...] 07/16/2022 1:53 PM EST Plan of Treatment Health Maintenance Due Date Last Done Comments Cologuard 1955 Colon Cancer Screening 1955 Colonoscopy 1955 FOBT / Fit Test 1955 Sigmoidoscopy 1955 Pneumococcal Vaccine: 65+ Years (1 of 2 - PCV) 1961 DTaP,Tdap,and Td Vaccines (1 - Tdap) 1977 Mammogram 1995 Osteoporosis Screening 2005 Zoster Vaccines (1 of 2) 2005 RSV Vaccine (60+ years old and patients) (1 - Risk 60-74 years 1-dose series) 2015 CT Lung Cancer Screening (Baseline) 06/13/2023 06/13/2022, 12/08/2018 COVID-19 Vaccine ( season) 2024 03/19/2022, 08/30/2021, 03/20/2021, Additional history exists Influenza Vaccine (#1) 2024 , 02/18/2019, 02/22/2018, Additional history exists Alcohol/Substance Use Screening 05/25/2024 Depression Screening and Follow-Up 05/25/2024 Health Care Proxy Review 05/25/2024 Social Drivers of Health Annual Screening 05/25/2024 Hepatitis C Screening Completed 12/10/2018 Hepatitis B Vaccines Aged Out No long er eligible based on patient's age to complete this topic Procedures * Due to [place] Pulsity law, this organization might not be sharing negative HIV tests. Procedure Name Priority Date/Time Associated Diagnosis Comments CT CHEST INTERSTITIAL LUNG DISEASE/FIBROSIS Routine 06/13/2022 4:07 PM EST Interstitial lung disease (HCC) from Last 3 Months or Most Recently Relevant to Health Maintenance Results * Due to [place] Pulsity law, this organization might not be sharing [...] obtain the completed interpretation. ? Workstation ID: [id number] Up-to-date CT equipment and radiation dose reduction [...] of vertebral body heights. Resulting Agency Comment [id number] Procedure Note Willy Solo MD - 06/17/2022 [...] possible to obtain thecompleted interpretation. Workstation ID: [id number] Up-to-date CT equipment and radiation dose reduction techniques wereemployed. CTDIvol: 15.8 - 18.3 mGy. DLP: 1236 mGy-cm. Alex Moctezuma MD IM CT PROCEDURES Final Result from Last 3 Months or Most Recently Relevant to Health Maintenance Insurance [facility] [employer] AARP Care Teams Shellfish Processing Machine Tender Relationship Specialty Start Date End Date Louise Schultz [address] [place] [address] PCP - General Internal Medicine 10/18/21
--- NOTE | 2024-06-30 10:04 | A.OFFVIS_ITS ---
Vital Signs 06/30/24 10:05 Height 5 ft 2 in Weight 302 lb 7.587 oz BMI 55.3 BP 124/62 Blood Pressure Location Rt brachial Position Sitting Pulse 70 Pulse Source Monitor Intake Visit Reasons: 6m follow up Blueprint Duplicator Required: No Allergies doxycycline Allergy (Unknown, Verified 06/30/24 10:08) Unknown empagliflozin [From Jardiance] Allergy (Unknown, Verified 06/30/24 10:08) Unknown sitagliptin [From Januvia] Adverse Reaction (Intermediate, Verified 06/30/24 10:08) pancreatitis Medication List - Last Reconciled 06/30/24 by Isabel Rizzo, INTERNATIONAL MARKETING MANAGER-C albuterol sulfate 90 mcg/actuation 2 puffs inhalation 6XD PRN carvedilol 6.25 mg PO BID famotidine (Pepcid) 20 mg PO BID furosemide 20 mg PO BID insulin glargine (Lantus Solostar U-100 Insulin) 50 units subcut BEDTIME insulin lispro (Humalog KwikPen (U-100) Insulin) subcut levothyroxine 25 mcg PO DAILY metformin 500 mg PO BID pantoprazole 40 mg PO BID pregabalin 300 mg PO BID rosuvastatin 20 mg PO BEDTIME valsartan 320 mg PO DAILY warfarin 10 mg PO DAILY HPI HPI 6m follow up: Details: Lori is a 69-year-old female with past medical history of morbid obesity, COPD, CVA, chronic respiratory failure with continual O2 supplement, left bundle branch block presents for follow-up. Today she reports that since her last visit she has noticed a heaviness in her chest if she ambulates with out her oxygen. She says it is not a pain or discomfort just a feeling where she can not get her breath. When she puts the oxygen back on this symptom resolves. She denies any other types of chest discomfort at rest or with activity. She wears her oxygen mostly continually. She has shortness of breath with physical activity which is unchanged. She continues to follow with pulmonology. No palpitations, lightheadedness, presyncope, syncope, falls. No PND, orthopnea or edema. Sleeps with 2 pillows and lays on her side which is her norm. Mostly sedentary. Takes all meds as directed. [facility] Surgical History History of carpal tunnel release Hx of knee surgery Family History Father Diabetes Mother Afib Sister Cardiomyopathy Social History Household Members: Spouse Years Smoked: 15 Second Hand Smoke Exposure: No Review of Systems Const All systems reviewed & are unremarkable except as noted in HPI and below ENT Denies dizziness Card Details: chest heaviness if walking and not wearing O2 Denies chest pain, Denies chest pain at rest, Denies chest pain with activity, Denies rapid heart rate, Denies pedal edema, Denies edema, Reports leg edema, Denies lightheadedness, Denies palpitations, Denies dyspnea, Reports dyspnea on exertion and Denies orthopnea Resp Denies cough, Denies dyspnea and Reports dyspnea on exertion GI Denies hematochezia and Denies change in stool character Musc Reports abnormal gait (uses walker), Denies limited range of motion, Denies muscle cramps, Denies muscle weakness, Denies numbness, Denies radiating pain into limb, Denies stiffness and Denies tingling Neuro Reports abnormal gait (uses walker), Denies dizziness, Denies numbness and Denies tingling Endo Denies palpitations Physical Exam Vital Signs: Last Vital Signs Pulse 70 06/30/24 10:05 BP 124/62 06/30/24 10:05 BMI result Body Mass Index 55.3 Const Other: morbidly obese General: cooperative, comfortable and no acute distress Orientation/consciousness: patient oriented x3 Neck Neck: Yes normal visual inspection and Yes no JVD Resp Effort & Inspection: normal respiratory effort Auscultation: clear to auscultation bilaterally, no crackles, no rales, no rhonchi and no wheezes Cardio Jugular venous distension: no JVD Rate: regular rate Rhythm: regular rhythm Heart sounds: S1 normal heart sound present, S2 normal heart sound present, no murmurs and no rubs Neuro General: patient oriented x3 Extrem General: Yes normal to inspection, No no pedal edema and No calf tenderness Psych Appearance: grossly normal Mental Status: mental status grossly normal Speech and movement: Normal speech and movement present Office Procedures EKG Details: Today, read by me, Normal sinus rhythm, Left axis, Left bundle branch block, rate 70 [id number], Complete Assessment & Plan Assessment & Plan (1) Dyspnea on exertion: Code(s): R06.00 - Dyspnea, unspecified Category: Medical Plan: Shortness of breath with exertion which is unchanged recently. She is noticing a heaviness in her chest when she ambulates without her oxygen. This symptom is quickly relieved when she reapplied O2. She has morbid obesity, remote history of smoking, COPD, chronic respiratory failure with hypoxia and need for chronic O2 use. She follows closely with pulmonology. Pharmacological nuclear stress test was done on her 10/14/2022 which was a suboptimal study. On prior visit Dr. Stevens discussed doing a diagnostic cardiac catheterization with right heart pressures and she declined. Echocardiogram done 12/07/2023 showing EF 55-60%, mild LVH, [id number] MR, normal RV systolic pressure. She has a known chronic left bundle branch block. EKG done today showing sinus rhythm with left bundle branch block, rate 70. With her new symptom of heaviness in her chest when walking and not wearing oxygen I did discuss the possibility of this being a cardiac symptom. For further evaluation cardiac catheterization would be the test of choice. She declines at this time. Says she is quite fearful of having such a procedure. Spoke with her about her symptoms and she was instructed to let this office know if she has any change or worsening of this. Emergency care if ever needed. It is possible that her chest heaviness is related to her COPD and hypoxia however CAD has not been entirely ruled out on her. She states understanding of this. At this time we will continue with med management and risk factor modification for CAD. She is not on aspirin as she is on Coumadin for prior CVA. She is on rosuvastatin with ideal LDL goal less than 100, carvedilol, valsartan, Lasix. No med changes made. Benefits of weight loss, increasing physical activity, low-salt det reviewed. Cardiology follow-up in 6 months, sooner if needed (2) Abnormal nuclear stress test: Code(s): R94.39 - Abnormal result of other cardiovascular function study Category: Medical Plan: As above (3) Chronic respiratory failure: Code(s): J96.10 - Chronic respiratory failure, unspecified whether with hypoxia or hypercapnia Category: Medical Plan: Follows with pulmonology (4) Morbid obesity: Code(s): E66.01 - Morbid (severe) obesity due to excess calories Category: Medical Plan: As above (5) Supplemental oxygen dependent: Code(s): Z99.81 - Dependence on supplemental oxygen Category: Medical Plan: As above (6) Left bundle branch block: Code(s): I44.7 - Left bundle-branch block, unspecified Category: Medical Plan: Chronic left bundle branch block, noted on EKG. EF 50-55% on prior echo, 2021. Repeat echo showing EF 55-60%. Left bundle branch block can contribute to reduced EF. Will follow. (7) Chest tightness: Code(s): R07.89 - Other chest pain Category: Medical Plan: As above Plan Time spent on chart review, documentation, interview and assessment Coding Level of Care Code Est Pt Level 4 (41458) Complex EM visit Add On G2211 Diagnoses Dyspnea on exertion R06.00 Abnormal nuclear stress test R94.39 Chronic respiratory failure J96.10 Morbid obesity E66.01 Supplemental oxygen dependent Z99.81 Left bundle branch block I44.7 Chest tightness R07.89 CPT Codes EKG - CPT: 56642-[id number], Complete ([id number]) Time Spent (min) 30
[2024-06-30 10:05] VITALS: BP 124/62; PULSE 70; BMI 55.3
== END 2024-06-30 10:42 | disposition home or self-care (01) ==
LOC: HO.HCS 09:54
PROVIDERS: PCP Internal Medicine; Visit Provider Nurse Practitioner Family
DX: J96.10 Chronic respiratory failure, unspecified whether with hypoxia or hypercapnia (principal); E66.01 Morbid (severe) obesity due to excess calories; Z68.43 Body mass index [BMI] 50.0-59.9, adult; R94.39 Abnormal result of other cardiovascular function study; R07.89 Other chest pain; Z99.81 Dependence on supplemental oxygen; I44.7 Left bundle-branch block, unspecified; R94.31 Abnormal electrocardiogram [ECG] [EKG]
CPT/HCPCS: 93010; 99214; G2211

== ENCOUNTER → 2024-06-30 09:54 | Outpatient (BNVA) | payer MEDICARE, SELFPAY | PROVIDERS: PCP Internal Medicine; Visit Provider Nurse Practitioner Family | DX: I44.7 Left bundle-branch block, unspecified (principal); J44.9 Chronic obstructive pulmonary disease, unspecified; E66.01 Morbid (severe) obesity due to excess calories; R06.00 Dyspnea, unspecified; R94.39 Abnormal result of other cardiovascular function study; J96.10 Chronic respiratory failure, unspecified whether with hypoxia or hypercapnia; R07.89 Other chest pain; Z99.81 Dependence on supplemental oxygen; Z86.73 Personal history of transient ischemic attack (TIA), and cerebral infarction without residual deficits; Z68.43 Body mass index [BMI] 50.0-59.9, adult | CPT/HCPCS: 93005; 99212 ==

== ENCOUNTER 2024-10-25 14:17 | Outpatient (AMB) | payer MEDICARE, SELFPAY ==
--- NOTE | 2024-10-25 14:19 | A.OFFVIS_ITS ---
Vital Signs 10/25/24 14:20 Height 5 ft 2 in Weight 308 lb BMI 56.3 BP 119/58 L Blood Pressure Location Rt brachial Position Sitting Pulse 80 Pulse Source Pulse Oximeter Pulse Oximetry (%) 91 L Oxygen Delivery Method Room Air Oxygen Flow Rate 2 Intake Visit Reasons: dyspnea Allergies doxycycline Allergy (Unknown, Verified 10/25/24 14:26) Unknown empagliflozin [From Jardiance] Allergy (Unknown, Verified 10/25/24 14:26) Unknown sitagliptin [From Januvia] Adverse Reaction (Intermediate, Verified 10/25/24 14:26) pancreatitis HPI HPI dyspnea: Details: 69-year-old lady, active 40+ pack-year smoker, followed for underlying COPD and pulmonary nodules. Patient pulmonary function tests show no fixed obstruction or significant bronchodilator response. She continues to require supplemental oxygen. No recent exacerbations. No response to a trial of inhaled bronch odilators. [facility] Surgical History History of carpal tunnel release Hx of knee surgery Family History Father Diabetes Mother Afib Sister Cardiomyopathy Social History Household Members: Spouse Years Smoked: 15 Second Hand Smoke Exposure: No Review of Systems Const Denies daytime sleepiness, Denies excessive sweating, Denies fatigue, Denies fever(s), Denies lethargy, Denies malaise, Denies night sweats, Denies snoring and Denies weight loss Eyes Denies blurry vision and Denies itchy eyes ENT Denies nasal congestion, Denies post nasal drip, Denies sinus pain, Denies sinus pressure and Denies other ( Thrush) Card Denies chest pain, Denies pedal edema, Denies dyspnea, Reports dyspnea on exertion, Denies orthopnea and Denies paroxysmal nocturnal dyspnea Resp Denies cough, Denies hemoptysis, Denies excessive phlegm production, Denies dyspnea, Reports dyspnea on exertion, Denies snoring and Denies wheezing GI Denies abdominal pain and Denies heartburn Musc Denies myalgias, Denies arthralgias and Denies joint swelling Skin/Breast Denies rash Neuro Denies memory loss and Denies seizure-like activity Psych Denies abnormal sleep pattern, Denies anxiety and Denies memory loss Endo Denies excessive sweating, Denies fatigue and Denies heat intolerance Fabian/Lymph Denies easy bruising Aller/Immun Denies itchy eyes, Denies seasonal rhinorrhea and Denies wheezing Physical Exam Vital Signs: Last Vital Signs Pulse 80 10/25/24 14:20 BP 119/58 L 10/25/24 14:20 Pulse Ox 91 L 10/25/24 14:20 Oxygen Delivery Method Room Air 10/25/24 14:20 Oxygen Flow Rate 2 10/25/24 14:20 BMI result Body Mass Index 56.3 Const General: no acute distress and alert Nutritional Appearance: obese Orientation/consciousness: Other orientation findings ( oriented) HEENT Head: Yes atraumatic Eyes General: appearance normal, both eyes and all related structures Sclerae: sclerae normal EOM: EOMs intact bilaterally Neck Neck: Yes supple Lymphatic: no lymphadenopathy noted Resp Effort & Inspection: normal respiratory effort and no use of accessory muscles Auscultation: clear to auscultation bilaterally Cardio Rate: regular rate Rhythm: regular rhythm Heart sounds: no gallops, no murmurs and no rubs Skin General skin exam: other ( warm) Extrem General: No clubbing, No cyanosis and No edema Assessment & Plan Assessment & Plan (1) Restrictive ventilatory defect: Code(s): R94.2 - Abnormal results of pulmonary function studies Category: Medical Plan: Secondary to body habitus. (2) Supplemental oxygen dependent: Code(s): Z99.81 - Dependence on supplemental oxygen Category: Medical Plan: Continue supplemental oxygen to maintain O2 saturation above 88%. Coding Level of Care Code Est Pt Level 4 (44955) Diagnoses Restrictive ventilatory defect R94.2 Supplemental oxygen dependent Z99.81
[2024-10-25 14:20] VITALS: BP 119/58; PULSE 80; O2SAT 91; BMI 56.3
--- OUTSIDE RECORDS SUMMARY | 2024-10-25 16:06 | XMS_ITS | Clinical Summary ---
Author Organization [facility] Address [address] [place] [address] Care Team Providers Care Card Cutter Name Role Phone Louise Schultz Primary Care Provider [phone] Allergies Active Allergy Reactions Criticality Noted Date [...] Fit Test 1955 Sigmoidoscopy 1955 Pneumococcal Vaccine: 50+ Years (1 of 2 - PCV) 1974 DTaP,Tdap,and Td Vaccines (1 - Tdap) 1977 Mammogram 1995 Osteoporosis Screening 2005 Zoster Vaccines (1 of 2) 2005 RSV Vaccine (60+ years old and patients) (1 - Risk 60-74 years 1-dose series) 2015 CT Lung Cancer Screening (Baseline) 06/13/2023 06/13/2022, 12/08/2018 COVID-19 Vaccine ( season) 2024 03/19/2022, 08/30/2021, 03/20/2021, Additional history exists Alcohol/Substance Use Screening 05/25/2024 Depression Screening and Follow-Up 05/25/2024 Health Care Proxy Review 05/25/2024 Social Drivers of Health Annual Screening 05/25/2024 Influenza Vaccine (Season Ended) 2025 03/19/2022, 02/18/2019, 02/22/2018, Additional history exists Hepatitis C Screening Completed 12/10/2018 Hepatitis B Vaccines Aged Out No long er eligible based on patient's age to complete this topic Procedures * Due to [place] law, this organization might not be sharing negative HIV tests. Procedure Name Priority Date/Time Associated Diagnosis Comments CT CHEST INTERSTITIAL LUNG DISEASE/FIBROSIS Routine 06/13/2022 4:07 PM EST Interstitial lung disease from Last 3 Months or Most Recently Relevant to Health Maintenance Results * Due to [place] law, this organization might not be sharing [...] obtain the completed interpretation. ? Workstation ID: [id number] Up-to-date CT equipment and radiation dose reduction [...] of vertebral body heights. Resulting Agency Comment [id number] Procedure Note Willy Solo MD - 06/17/2022 [...] possible to obtain thecompleted interpretation. Workstation ID: [id number] Up-to-date CT equipment and radiation dose reduction techniques wereemployed. CTDIvol: 15.8 - 18.3 mGy. DLP: 1236 mGy-cm. Alex Moctezuma MD IM CT PROCEDURES Final Result from Last 3 Months or Most Recently Relevant to Health Maintenance Insurance [facility] MCR REPLACE A[employer] Care Teams Card Cutter Relationship Specialty Start Date End Date Louise Schultz [address] [place] [address] PCP - General Internal Medicine 10/18/21
== END 2024-10-25 14:37 | disposition home or self-care (01) ==
LOC: HO.HPS 14:17
PROVIDERS: PCP Internal Medicine; Visit Provider Internal Medicine Pulmonary Disease
DX: R94.2 Abnormal results of pulmonary function studies (principal); Z99.81 Dependence on supplemental oxygen
CPT/HCPCS: 99214

== ENCOUNTER → 2024-10-25 14:17 | Outpatient (BNVA) | payer MEDICARE, SELFPAY | PROVIDERS: PCP Internal Medicine; Visit Provider Internal Medicine Pulmonary Disease | DX: R94.2 Abnormal results of pulmonary function studies (principal); Z99.81 Dependence on supplemental oxygen | CPT/HCPCS: 99212 ==

== ENCOUNTER 2025-01-03 09:51 | Outpatient (AMB) | payer MEDICARE, SELFPAY ==
[2025-01-03 10:34] VITALS: BP 108/52; PULSE 78; BMI 57.4
--- NOTE | 2025-01-03 10:34 | MHC.OFFVIS ---
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 Allergies doxycycline Allergy (Unknown, Verified 01/03/25 10:36) Unknown empagliflozin (From Jardiance) Allergy (Unknown, Verified 01/03/25 10:36) Unknown sitagliptin (From Januvia) Adverse Reaction (Intermediate, Verified 01/03/25 10:36) pancreatitis Medication List - Last Reconciled 01/03/25 by CHAITANYA Bermudez albuterol sulfate 90 mcg/actuation 2 puffs inhalation 6XD PRN carvedilol 6.25 mg PO BID furosemide 20 mg PO BID insulin glargine (Lantus Solostar U-100 Insulin) 50 units subcut BEDTIME insulin lispro (Humalog KwikPen (U-100) Insulin) subcut levothyroxine 25 mcg PO DAILY metformin 500 mg PO ONCE pantoprazole 40 mg PO BID pregabalin 300 mg PO BID rosuvastatin 20 mg PO BEDTIME valsartan 320 mg PO DAILY warfarin 10 mg PO DAILY HPI HPI 6m follow up: Details: Lori is a 69-year-old female with past medical history of morbid obesity, COPD, CVA, chronic respiratory failure with continual O2 supplement, left bundle branch block presents for follow-up. Today she reports that at times she will still notice a vague heaviness in her chest if she ambulates with out her oxygen. She says it is not a pain or discomfort just a feeling where she can not get her breath. This symptom has not worsened over the last 6 months. When she puts the oxygen back on this symptom resolves. She denies any other types of chest discomfort at rest or with activity. She wears her oxygen mostly continually. She has shortness of breath with physical activity which is unchanged. She continues to follow with pulmonology. No palpitations, lightheadedness, presyncope, syncope, falls. No PND, orthopnea or edema. Sleeps with 2 pillows and lays on her side which is her norm. Has not been able to lose weight. Mostly sedentary. Takes all meds as directed. [facility] Surgical History History of carpal tunnel release Hx of knee surgery Family History Father Diabetes Mother Afib Sister Cardiomyopathy Social History Household Members: Spouse Years Smoked: 15 Second Hand Smoke Exposure: No Review of Systems Const All systems reviewed & are unremarkable except as noted in HPI and below ENT Denies dizziness Card Denies chest pain, Denies chest pain at rest, Denies chest pain with activity, Denies rapid heart rate, Denies pedal edema, Denies edema, Denies leg edema, Denies lightheadedness, Denies palpitations, Reports dyspnea, Reports dyspnea on exertion and Reports orthopnea Resp Denies cough, Reports dyspnea and Reports dyspnea on exertion GI Denies hematochezia and Denies change in stool character Musc Reports abnormal gait (uses walker), Denies limited range of motion, Denies muscle cramps, Denies muscle weakness, Denies numbness, Denies radiating pain into limb, Denies stiffness and Denies tingling Neuro Reports abnormal gait (uses walker), Denies dizziness, Denies numbness and Denies tingling Endo Denies palpitations Physical Exam Vital Signs: Last Vital Signs Pulse 78 01/03/25 10:34 BP 108/52 L 01/03/25 10:34 BMI result Body Mass Index 57.4 Const Other: morbid obesity General: cooperative, healthy appearing, comfortable and no acute distress Orientation/consciousness: patient oriented x3 Neck Neck: Yes normal visual inspection Resp Effort & Inspection: normal respiratory effort Auscultation: clear to auscultation bilaterally, no rales, no rhonchi and no wheezes Cardio Rate: regular rate Rhythm: regular rhythm Heart sounds: S1 normal heart sound present, S2 normal heart sound present, no gallops, no murmurs and no rubs Neuro General: patient oriented x3 Extrem General: Yes normal to inspection, No no pedal edema and No calf tenderness Psych Appearance: grossly normal Mental Status: mental status grossly normal Speech and movement: Normal speech and movement present Assessment & Plan Assessment & Plan (1) Dyspnea on exertion: Code(s): R06.00 - Dyspnea, unspecified Category: Medical Plan: Shortness of breath with exertion which is unchanged recently. Also with intermittent heaviness in her chest when she ambulates without her oxygen that resolves when O2 applied. No change in symptoms in the last 6 months. She has morbid obesity, remote history of smoking, COPD, chronic respiratory failure with hypoxia and need for chronic O2 use. She follows closely with pulmonology. Pharmacological nuclear stress test was done on her 10/14/2022 which was a suboptimal study. Diagnostic cardiac catheterization previously discussed and she declines. Last Echocardiogram done 12/07/2023 showing EF 55-60%, mild LVH, [id number] MR, normal RV systolic pressure. She has a known chronic left bundle branch block. A CT scan of the chest done 06/13/2022 shows mild coronary artery calcifications. She continues to have ongoing symptoms though not changing. It is possible that her chest heaviness is related to her COPD and hypoxia however CAD has not been entirely ruled out on her. I asked her again about cardiac catheterization and she declines. We discussed benefits of weight loss and options for doing so. She is not interested in the bariatric program. Instructed to let this office know if she has any change or worsening of this. Emergency care if ever needed. At this time we will continue with med management and risk factor modification for CAD. She is not on aspirin as she is on Coumadin for prior CVA. She is on rosuvastatin with ideal LDL goal less than 100, carvedilol, valsartan, Lasix. No med changes made. Cardiology follow-up in 6 months, sooner if needed (2) Abnormal nuclear stress test: Code(s): R94.39 - Abnormal result of other cardiovascular function study Category: Medical Plan: As above (3) Chronic respiratory failure: Code(s): J96.10 - Chronic respiratory failure, unspecified whether with hypoxia or hypercapnia Category: Medical Plan: Follows with pulmonology (4) Morbid obesity: Code(s): E66.01 - Morbid (severe) obesity due to excess calories Category: Medical Plan: As above (5) Supplemental oxygen dependent: Code(s): Z99.81 - Dependence on supplemental oxygen Category: Medical Plan: As above (6) Left bundle branch block: Code(s): I44.7 - Left bundle-branch block, unspecified Category: Medical Plan: Chronic left bundle branch block, noted on EKG. EF 50-55% on prior echo, 2021. Repeat echo showing EF 55-60%. Left bundle branch block can contribute to reduced EF. Will follow. (7) Chest tightness: Code(s): R07.89 - Other chest pain Category: Medical Plan: As above Plan I discussed with the patient the stability of her symptoms and the importance of continuing medical management. We talked about the potential need for further diagnostic procedures if symptoms worsen. The patient was advised on the benefits of weight loss and dietary changes, and we discussed the possibility of seeking counseling for overeating. Follow-up was scheduled for six months, with instructions to return sooner if symptoms change. Patient Instructions: - Continue taking all prescribed medications as directed. - Monitor for any changes in chest discomfort or shortness of breath and report them promptly. - Focus on weight management and consider seeking support for dietary changes. - Follow up in six months or sooner if symptoms change. Patient was informed and verbally consented to the use of an ambient scribe for clinic note documentation during this visit. Visit time spent on chart review, interview, assessment, orders, documentation. Coding Level of Care Code Est Pt Level 4 (06080) Complex EM visit Add On G2211 Diagnoses Dyspnea on exertion R06.00 Abnormal nuclear stress test R94.39 Chronic respiratory failure J96.10 Morbid obesity E66.01 Supplemental oxygen dependent Z99.81 Left bundle branch block I44.7 Chest tightness R07.89 Time Spent (min) 36
--- OUTSIDE RECORDS SUMMARY | 2025-01-03 10:37 | XMS_ITS | Clinical Summary ---
Author Organization Formerly [facility] Address [address] [place] [id number] Phone Care Team Providers Care Training Designer Name Role Phone Louise Schultz MD Primary Care Provider [phone] Allergies Active Allergy Reactions Criticality Noted Date Comments Cat Dander Unknown 12/20/2021 Doxycycline Rash,Dermatitis Low 12/08/2018 Other reaction(s): Psoriasis Empagliflozin Other (See Comments) 12/20/2021 uti Sitagliptin Other (See Comments) 12/20/2021 Had pancreatis Medications calcium carbonate-vitamin D3 1,500 mg (600 mg elemental)-200 units Tab Take by mouth 2 (two) times a day. Active ascorbic acid, vitamin C, (VITAMIN C) 500 MG tablet Take 500 mg by mouth. Active aspirin 81 MG EC tablet Take 81 mg by mouth. Active carvedilol (COREG) 3.125 MG tablet Take 3.125 mg by mouth 2 (two) times a day. 08/04/19 23 Active cholecalciferol (VITAMIN D3) 2,000 unit capsule Take 1 capsule by mouth daily. Active furosemide (LASIX) 20 MG tablet TAKE 2 TABLETS BY MOUTH DAILY IN THE MORNING AND 1 TABLET IN THE EVENING 07/02/19 23 Active L. acidophilus/Bifid . animalis 32 billion cell Cap Take 1 capsule by mouth. Active loperamide (IMODIUM) 2 mg capsule Take 2 mg by mouth 4 (four) times a day as needed. Active omega-3 fatty acids-fish oil 340-1,000 mg Cap Take 1,000 mg by mouth. Active pantoprazole (PROTONIX) 40 MG tablet Take 40 mg by mouth 2 (two) times a day. 05/27/19 Active pregabalin (LYRICA) 300 MG capsule Take 300 mg by mouth 2 (two) times a day. 06/16/19 Active rosuvastatin (CRESTOR) 20 MG tablet 07/08/19 Active valsartan (DIOVAN) 320 MG tablet 08/08/19 Active warfarin (COUMADIN) 5 MG tablet TAKE 1 TABLET BY ORAL ROUTE ONCE DAILY ON SUNDAYS AND THEN 1.5 TABLETS THE REST OF THE WEEK 07/01/19 Active levothyroxine (SYNTHROID,LEVOTH ROID) 25 MCG tabletIndications :Acquired hypothyroidism TAKE 1 TABLET(25 MCG) BY MOUTH DAILY ON AN EMPTY STOMACH 90 tablet 1 11/16/19 24 Active BD INOCENCIO 2ND GEN PEN NEEDLE 32 gauge x NdleIndications:T ype 2 diabetes mellitus with hyperglycemia, with long-term current use of insulin 1 each by Miscellaneous route 5 (five) times a day. 500 each 3 06/15/19 25 Active insulin lispro (ADMELOG, HUMALOG) 100 unit/mL injection penIndications:Ty pe 2 diabetes mellitus with hyperglycemia, with long-term current use of insulin Inject 6 to 32 units under the skin before each main meal and at bed 4 times a day 120 mL 2 06/15/19 25 Active LANTUS SOLOSTAR U-100 INSULIN 100 unit/mL (3 mL) InPn injection penIndications:Ty pe 2 diabetes mellitus with hyperglycemia, with long-term current use of insulin Inject up to 70 units under the skin nightly 60 mL 2 06/15/19 25 Active metFORMIN (GLUCOPHAGE) 500 MG tabletIndications :Type 2 diabetes mellitus with hyperglycemia, with long-term current use of insulin TAKE 1 TABLET(500 MG) BY MOUTH DAILY WITH BREAKFAST 90 tablet 1 08/12/19 25 Active ACCU-CHEK GUIDE TEST STRIPS Strp stripsIndications :Type 2 diabetes mellitus with hyperglycemia, with long-term current use of insulin 1 each by Miscellaneous route 5 (five) times a day. 500 strip 3 12/14/19 25 Active lancets MiscIndications:T ype 2 diabetes mellitus with hyperglycemia, with long-term current use of insulin 1 each by Miscellaneous route 5 (five) times a day. 500 each 3 12/14/19 25 Active ONETOUCH ULTRA TEST Strp stripsIndications :Type 2 diabetes mellitus with hyperglycemia, with long-term current use of insulin USE TO TEST BLOOD GLUCOSE FIVE TIMES DAILY 500 strip 2 06/15/19 25 025 Discontin ued(Formu love change) ONETOUCH ULTRASOFT lancetsIndication s:Type 2 diabetes mellitus with hyperglycemia, with long-term current use of insulin 1 each by Miscellaneous route 5 (five) times a day. 500 each 3 06/15/19 25 025 Discontin ued(Formu love change) ACCU-CHEK GUIDE GLUCOSE METER Misc meterIndications: Type 2 diabetes mellitus with hyperglycemia, with long-term current use of insulin by Miscellaneous route once for 1 dose. 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 No frequent or severe hypoglycemia. Some of her evening readings have been high recently due to dietary intake for dinner while helping pack up her [place] house. This is slowing down and when she is cooking at home her evening glucose levels are better. Will maintain her regimen. Continue to work on eating healthy and trying to be active. To call or message with any issues managing her glucose levels. Up to date with [facility]. Labs ordered to be done prior to next visit Assessment & Plan (11/05/2022 10:46 AM EDT): Control is improving based upon the patient's SMBG readings. No frequent or severe hypoglycemia. Since increasing her lantus and humalog her glucose levels have gotten much better throughout the day. She wants to try stopping the evening dose of metformin to see if this will help stop the severe diarrhea and stomach cramping. Will try stopping the evening dose of metformin to see if this helps. Will address with Dr Duval in December to determine if further adjustments are needed. Continue to work on eating healthy and being active. To call or message with any issues managing her glucose levels. Up to date with [facility] Assessment & Plan (09/23/2022 10:38 AM EDT): Patient was recently seen by Dr Grijalva and told that she now has the start of retinopathy. She thinks it is in her left eye but is not 100% certain. The report is being sent to the office. Discussed the importance of improving her glucose levels to help prevent the worsening of the retinopathy. Type 2 diabetes mellitus with hyperglycemia 07/24 Assessment & Plan (09/21/2024 1:36 PM EDT): Control is poor based upon the patient's SMBG readings. No frequent or severe hypoglycemia. She knows the high glucose levels are caused by her poor dietary choices. Stressed with her she cannot use any GLP-1s due to her history of having pancreatitis 3x. Stressed she needs to see her dietary choices as medicine, she needs to work on making better choices or her glucose levels will not improve. She is going to try harder with her diet. To call or message with any issues managing her glucose levels. Up to date with [facility]. Labs reviewed Assessment & Plan (06/17/2024 9:35 AM EST): Control is subotpimal based upon the patient's SMBG readings. No frequent or severe hypoglycemia. She has not been great with her dietary choices recently due to being in the hospital with her sister. She is going to try and work on improving her diet to help improve her glucose levels. She is going to increase her sliding scale by 2-4 units at meal based upon her carbohydrate intake. Discussed increasing her sliding scale dosing at dinner to help prevent highs before bed. Continue to work on eating healthy and trying to be active. To call or message with any issues managing her glucose levels. Up to date with [facility]. Labs ordered Assessment & Plan (07/29/2023 11:39 AM EST): Control is subotpimal based upon the patient's SMBG readings. No frequent or severe hypoglycemia. She has not been great with her dietary choices recently causing the elevated glucose levels at night. Discussed increasing her sliding scale dosing at dinner to help prevent highs before bed. Continue to work on eating healthy and trying to be active. To call or message with any issues managing her glucose levels. Up to date with [facility]. Assessment & Plan (05/11/2023 1:07 PM EST): Control is reasonable but not optimal based upon the patient's SMBG readings. No frequent or severe hypoglycemia. Her glucose levels have been running higher with her stress levels being higher. Discussed increasing her lispro by a couple units when her stress levels are higher to help prevent the glucose spikes. Continue to work on eating healthy and trying to be active. To call or message with any issues managing her glucose levels. Up to date with [facility]. Labs ordered today Assessment & Plan (01/22/2023 11:44 PM EDT): Suboptimal control by SMBG. Frequent overnight hypoglycemia to the 50s with symptoms since started weight watchers 3 weeks ago. Patient continued on her usual dose of Lantus 58 units at bedtime and Humalog 8 to 626 units before breakfast and 14 to 32 units before dinner. She remains on 500 mg of metformin in the morning. Her renal function does not allow a higher dose with creatinine 1.6 in 08/2022. We discussed symptoms, prevention and treatment of hypoglycemia. Suggested to decrease her current breakfast scale by 2 units each increment and use the same scale with the evening meal. If continued low sugars below the 70s by midnight patient will continue to decrease the dinner Humalog scale by 2 units each increment. If having fasting hypoglycemia, she will cut the Lantus by 4 units. Call if blood sugar below 70 or over 250 repeatedly. Assessment & Plan (09/23/2022 10:42 AM EDT): Control is poor based upon the patient's SMBG readings but improving with her recent A1C being 8.0%. No frequent or severe hypoglycemia. She had one recent episode of hypoglycemia over night. She is not sure what caused the low but corrected and then was fine. Her fasting glucose levels are consistently running above 200. Will increase her lantus from 54 units to 58 units to help prevent the fasting highs. Will increase her sliding scale by 2 units at each level to help prevent the post prandial highs.Continue to work on eating healthy and trying to be active. To call or message with any issues managing her glucose levels. Up to date with [facility]. Will order labs at her next visit Assessment & Plan (08/14/2022 2:48 PM EDT): Improved but suboptimal control by SMBG and last A1c of 8.2% in 05/2022. No frequent or severe hypoglycemia. Highest blood sugars are at bedtime related to larger evening meals. She lost about 20 pounds last fall While following a strict diet for 6 weeks for reflux disease. Unfortunately regained this weight after stopping the diet. She remains sedentary, using a walker. Suggested to increase the metformin 500 mg to twice a day to improve insulin resistance. Call if GI side effects. Increase Lantus to 54 units at that time from current 50 units. Keep the current Humalog sliding scale before meals-she is using between 6 to 24 units before breakfast and lunch and an extra 6 units before dinner currently. She will work on decreasing the dinner portions and try to get more physical activity as tolerated. We reviewed symptoms, treatment and prevention of hypoglycemia. She will call if blood sugar below 70 or over 250 repeatedly. Labs in 08/2022. Follow-up with our PA, Avelina on 09/23/2022 Acquired hypothyroidism 08/14/2022 Assessment & Plan (07/29/2023 11:39 AM EST): Will check levels prior to next visit to determine if medication adjustments are needed Assessment & Plan (03/09/2023 12:09 PM EDT): Will check levels prior to next visit to determine if medication adjustments are needed Assessment & Plan (01/22/2023 11:41 PM EDT): Last TSH normal 2.76 in 05/2022 while taking 25 mcg levothyroxine daily. Patient intentionally lost 7 pounds since last testing. Will recheck level and adjust dose as needed. Reviewed symptoms of under and over replacement, patient to call if concerned. Assessment & Plan (11/05/2022 10:43 AM EDT): Will be due for labs at visit in December Assessment & Plan (08/14/2022 2:45 PM EDT): Clinically and biochemically euthyroid. Last TSH 2.76 in 06/16 while taking 25 mcg levothyroxine daily. We will continue this dose would add TSH to next A1c. Discussed symptoms of under and over replacement, patient to call if concerned Thyroid nodule 08/14/2022 Assessment & Plan (06/17/2024 9:33 AM EST): Will check levels to determine if medication adjustments are needed Assessment & Plan (01/22/2023 11:40 PM EDT): Still waiting for old records to decide when next ultrasound is due. Assessment & Plan (08/14/2022 2:46 PM EDT): I am waiting for her old records to decide when she would need her next thyroid ultrasound. Encounters Date Type Department Care Team Description 12/01/2024 Telephone [facility] [address] [place] [address] Ginny Duval MD Diabetic Supplies / Insurance Issue from Last 3 Months Family History Medical History Relation Comments Diabetes Father Heart disease Father Kidney disease Father Heart disease Mother Autoimmune disease Sister Heart disease Sister Osteoporosis Sister Relation Status Comments Father Mother Sister Social History Tobacco Use Types Packs/Day Years Used Date Smoking Tobacco: Former Cigarettes 3 15 1 989 - 2003 Smokeless Tobacco: Never Alcohol Use Standard Drinks/Week Comments Never 0 (1 standard drink = 0.6 oz pur e alcohol) Education Answer Date Recorded Are you interested in more education? Not on fabien e 09/20/2022 Are you concerned about learning? Not on file 09/20/2022 No 09/20/2022 No 09/20/2022 Digital Access Answer Date Recorded No 10/15/2022 No 10/15/2022 Reliable internet access at home? Not on file 10/15/2022 Device with a working camera? Not on file Comments No Sex and Gender Information Value Date Recorded Sex Assigned at Not on file Legal Sex Female 3:32 PM EST Gender Identity Not on file Sexual Orientation Not on file Last Filed Vital Signs Vital Sign Reading Time Taken Comments Blood Pressure 116/66 09/20/2024 10:45 AM EDT Pulse 74 09/20/2024 10:45 AM EDT Temperature 36.6 C (97.8 F) 05/08/2023 10:09 AM EST Respiratory Rate 18 11/05/2022 9:43 AM EDT Oxygen Saturation 95% 09/20/2024 10: 45 AM EDT Inhaled Oxygen Concentration - - Weight 140.4 kg (309 lb 9.6 oz) 025 10:45 AM EDT Height 158.8 cm (5' 2.52 ) 09/20/2024 1 0:45 AM EDT Body Mass Index 55.69 09/20/2024 10:45 AM EDT Plan of Treatment Upcoming Encounters Date Type Department Care Team (Late st Contact Info) Description 03/31/2025 10:00 AM EST Office Visit [facility] [address] [place] [address] [place] [address] Erin Allison PA-C [address] [place] [address] [email or web address] Health Maintenance Due Date Last Done Comments Adult Td,Tdap Booster 1955 DEPRESSION SCREENING 1967 SMOKING Hx and SMOKELESS TOBACCO SCREENING 1968 HEPATITIS C SCREENING 1973 PNEUMOCOCCAL VACCINES (50+ years) (1 of 2 - PCV) 1974 MAMMOGRAM 1995 COLOGUARD 2000 COLONOSCOPY 2000 COLORECTAL CANCER SCREENING 2000 FIT TEST 2000 FOBT 2000 SIGMOIDOSCOPY 2000 VIRTUAL COLONOSCOPY 2000 ZOSTER VACCINES (1 of 2) 2005 RSV VACCINE (1 - Risk 60-74 years 1-dose series) 2015 OSTEOPOROSIS SCREENING INITIAL (ONE-TIME) 2020 HEMOGLOBIN A1C 03/05/2023 09/03/2022 COVID-19 VACCINE ( - season) 2024 DIABETIC EYE EXAM 11/02/2024 11/03/2023 POTASSIUM LEVEL 12/21/2024 12/22/2023, 08/11/2023 BLOOD PRESSURE 03/22/2025 09/20/2024 CREATININE LEVEL 08/19/2025 08/19/2024, , 08/11/2023, Additional history exists TSH LEVEL 08/19/2025 08/19/2024, 07, 01/22/2023 HEPATITIS A VACCINES Aged Out No long er eligible based on patient's age to complete this topic HIB VACCINES Aged Out No longer eligi ble based on patient's age to complete this topic MENINGOCOCCAL VACCINES (ACWY) Aged Out No longer eligible based on patient's age to complete this topic MENINGOCOCCAL VACCINES (B) Aged Out N o longer eligible based on patient's age to complete this topic Medical Devices Not on file Procedures Procedure Name Priority Date/Time Associated Diagnosis Comments TSH Routine 08/19/2024 3:31 PM EDT COMPREHENSIVE METABOLIC PANEL Routine 08/19/2024 3:31 PM EDT BASIC METABOLIC PANEL Routine 12/22/2023 3:16 PM EDT Type 2 diabetes mellitus with hyperglycemia, with long-term current use of insulin DIABETES EYE EXAM FOR RESULT ENTRY ONLY Routine 11/03/2023 OUTSIDE HEMOGLOBIN A1C Routine 09/03/2022 from Last 3 Months or Most Recently Relevant to Health Maintenance Results * Comprehensive metabolic panel (08/19/2024 3:31 PM EDT) Historical Provider MD LAB BLOOD ORDERABLES Sofia l Result * TSH (08/19/2024 3:31 PM EDT) Historical Provider MD LAB BLOOD ORDERABLES Sofia l Result * Basic metabolic panel (12/22/2023 3:16 PM EDT) Blood Erin Allison PA-C LAB BLOOD ORDERABL ES Final Result [facility] [address] [place] [address] * DIABETES EYE EXAM FOR RESULT ENTRY ONLY (11/03/2023) EYE EXAM [facility] Historical Provider HEALTH MAINTENANCE Final Result * Outside HbA1c (09/03/2022) Hemoglobin A1c - External 8 % Historical Provider LAB BLOOD ORDERABLES Sofia l Result from Last 3 Months or Most Recently Relevant to Health Maintenance Insurance [place] [address] MEDICARE PART A & B MEDICARE REPLACEMENT MEDICARE PART A & [place] [address] [place] [address] MEDICARE REPLACEMENT [place] [id number] MEDICARE PART A & B MEDICARE REPLACEMENT [place] [id number] MEDICARE PART A & B MEDICARE REPLACEMENT MEDICARE PART A & B MEDICARE REPLACEMENT MEDICARE PART A & B Care Teams Training Designer Relationship Specialty Start Date End Date Louise Schultz MD [address] [place] [address] [email or web address] PCP - General 07/24/22 Additional Source Comments The information contained in this document represents components of the legal health record. It is not the complete legal health record.[facility]ly [facility]
--- OUTSIDE RECORDS SUMMARY | 2025-01-03 10:37 | XMS_ITS | Clinical Summary ---
Author Organization [facility] Address [address] [place] [address] Care Team Providers Care Cushion Builder Name Role Phone Louise Schultz Primary Care Provider [phone] Allergies Active Allergy Reactions Criticality Noted Date [...] of Health Annual Screening 05/25/2024 Influenza Vaccine (#1) 2025 , 02/18/2019, 02/22/2018, Additional history exists Hepatitis C Screening Completed 12/10/2018 Hepatitis B Vaccines Aged Out No long er eligible based on patient's age to complete this topic Procedures * Due to [place] Mirror42 law, this organization might not be sharing negative HIV tests. Procedure Name Priority Date/Time Associated Diagnosis Comments CT CHEST INTERSTITIAL LUNG DISEASE/FIBROSIS Routine 06/13/2022 4:07 PM EST Interstitial lung disease from Last 3 Months or Most Recently Relevant to Health Maintenance Results * Due to [place] Mirror[place] law, this organization might not be sharing [...] section, it is an incomplete radiology report. Please contact the interpreting radiologist or applicable radiology division as soon as possible to obtain the completed interpretation. Workstation ID: [id number] Up-to-date CT equipment and radiation dose reduction [...] lower lung and peripheral predominant septal thickening/reticulation. Right lower lobe paramediastinal scarring/fibrosis secondary to osteophytes. No pulmonary nodules or airspace disease. No pleural effusion. LYMPH NODES: No enlarged thoracic lymph nodes. MEDIASTINUM: Normal sized heart. Mild coronary artery calcifications. Normal diameter thoracic aorta. Normal sized central pulmonary arteries. LOWER NECK: Normal UPPER ABDOMEN (limited): Normal BONES: No osseous lesions. Preservation of vertebral body heights. Resulting Agency Comment [id number] Procedure Note Willy Solo MD - 06/17/2022 [...] possible to obtain thecompleted interpretation. Workstation ID: [id number] Up-to-date CT equipment and radiation dose reduction techniques wereemployed. CTDIvol: 15.8 - 18.3 mGy. DLP: 1236 mGy-cm. Alex Moctezuma MD [facility] PROCEDURES Final Result from Last 3 Months or Most Recently Relevant to Health Maintenance Insurance [facility] MCR REPLACE AARP Care Teams Cushion Builder Relationship Specialty Start Date End Date Louise Schultz [address] [place] [address] PCP - General Internal Medicine 10/18/21
--- OUTSIDE RECORDS SUMMARY | 2025-01-03 10:37 | XMS_ITS | Clinical Summary ---
Author Organization [address] [place] [address] Address [address] [place] [address] Phone Care Team Providers Care Coal Cager Name Role Phone Min Santana Primary Care Provider [phone] Allergies Active Allergy Reactions Criticality Noted Date Comments Doxycycline 10/02/2016 Other Reaction(s): Rash/Dermatitis Empagliflozin 05/09/2020 Medications dicyclomine (BENTYL) 10 mg capsule Take 2 Capsules by mouth 4 times daily (before meals and nightly). 2 Active irbesartan (AVAPRO) 150 mg tablet Take 1 tablet (150 mg total) by mouth 1 (one) time each day. 2 Active pantoprazole (PROTONIX) 40 mg EC tablet Take 1 tablet by mouth daily. Take in a.m. on empty stomach, wait 30 minutes and then eat to activate medication 1 Active carvediloL (COREG) 3.125 mg tablet Take 1 tablet by mouth 2 times daily (with meals). 1 Active furosemide (LASIX) 20 mg tablet TAKE 2 TABLETS BY MOUTH IN THE MORNING & 1 TAB IN THE AFTERNOON DAILY 0 Active warfarin sodium (WARFARIN ORAL) Take 5 mg by mouth daily. Daily as directed. Coumadin managed by [facility]. Active CARVEDILOL ORAL Take 3.125 mg by mouth 2 times daily. Active fexofenadine (JAY) 180 mg tablet Take 180 mg by mouth daily. Active sucralfate (CARAFATE) 100 mg/mL suspension Take 10 mL by mouth 4 times daily. 0 Active albuterol HFA (PROAIR HFA ; PROVENTIL HFA ; VENTOLIN HFA) 90 mcg/actuation inhaler 2 PUFFS INHALATION 4 TIMES A DAY NEEDED FOR WHEEZING/SHORTNE SS OF BREATH 0 Active blood sugar diagnostic (ONETOUCH ULTRA TEST [facility]) 9 Active insulin lispro (HumaLOG KwikPen Insulin) 100 unit/mL injection pen INJECT 4 12 UNITS PER SLIDING SCALE 3 TIMES A DAY BEFORE MEALS 0 Active insulin glargine (Lantus Solostar U-100 Insulin) 100 unit/mL (3 mL) injection pen 0 Active pen needle, diabetic 32 gauge x 5/32 needle TO INJECT INSULIN 4 TIMES DAILY 30 DAYS 0 Active metFORMIN (GLUCOPHAGE) 500 mg tablet Take 500 mg by mouth 2 Times Daily. 0 Active tiotropium (Spiriva Respimat) 2.5 mcg/actuation inhalation spray INHALE 2 PUFFS INTO THE LUNGS EVERY DAY. 0 Active fluticasone furoate-vilante roL (Breo Ellipta) 200-25 mcg/dose inhaler Inhale 1 puff by mouth 1 (one) time each day. 0 Active pregabalin (LYRICA) 300 mg capsule Take [...] Bilateral leg edema 04/07/2024 COPD (chronic obstructive pu lmonary disease) (CMS/HCC V24, CMS/HCC V28) 04/07/2024 Cough 04/07/2024 Gastroparesis 04/07/2024 Arthritis 04/07/2024 Gastritis [...] of colon 04/07/2024 Type 2 diabetes mellitus wit h diabetic neuropathy (CMS/[facility] V24, CMS/[facility] V28) 04/07/2024 Cardiomyopathy (CMS/[facility] V24, CMS/[facility] V28) 2019 Overview (04/07/2024): H/o NSTEMI 2019, cardiomyopathy at [...] in one week. Deep vein thrombosis of lowe r extremity (CMS/HCC V24, CMS/HCC V28) 05/09/2020 Overview (04/07/2024): Deep venous thrombosis of lower extremity H/O non-ST elevation myocardial infarction (NSTE LA) 05/09/2020 Overview (04/07/2024): NSTEMI in 2019 in [...] replacement 03/21/2019 Chronic cholecystitis 01/06/2019 Stroke (cerebrum) ([facility] V24, [facility] V28) 05/2015 Surgical History Surgery Date Site/Laterality Comments CARPAL TUNNEL RELEASE PROCEDURE: HISTORICAL CARPAL TUNNEL REL TOTAL KNEE ARTHROPLASTY Bilateral PROCEDURE: IN ARTHRP KNE CONDYLE&PLATU MEDIAL&LAT COMPARTMENTS TUBAL LIGATION PROCEDURE: HISTORICAL TUBAL LIGATION DENTAL SURGERY PROCEDURE: IN UNLISTED PROCEDURE DENTOALVEOLAR STRUCTURES COLONOSCOPY PROCEDURE: HISTORICAL COLONOSCOPY; COMMENT: Performed in 2006 COLONOSCOPY 02/22/2020 PROCEDURE: HISTORICAL COLONOSCOPY; COMMENT: tubular adenoma UPPER GASTROINTESTINAL ENDOSCOPY 02/22/2020 PROCEDURE: IN UPPER GI ENDOSCOPY PERFORMED; COMMENT: normal CARDIAC CATHETERIZATION PROCEDURE: HISTORICAL CARDIAC CATH Medical History Medical History Date Comments Hypertension DX:Hypertension Hyperlipidemia DX:Hyperlipidemi a COPD (chronic obstructive pu lmonary disease) ([facility] V24, [facility] V28) DX:COPD (chronic o bstructive pulmonary disease) ([facility]) Arthritis DX:Arthritis IBS (irritable bowel syndrome) D X:IBS (irritable bowel syndrome) GERD (gastroesophageal reflu x disease) DX:GERD (gastroesophageal re flux disease) Gastroparesis DX:Gastroparesis Acute acalculous cholecystitis D X:Acute acalculous cholecystitis Acute pancreatitis DX:Acute panc reatitis Stroke (cerebrum) ([facility] V 24, [facility] V28) 2015 DX:Stroke (cerebrum) ([facility]) Bilateral leg edema DX:Bilateral leg edema Left bundle branch block DX:Left bundle branch block Type 2 diabetes mellitus wit h diabetic neuropathy ([facility] V24, [facility] V28) DX:Type 2 diabetes mellitus with diabetic neuropathy (HCC) Diabetic neuropathy (CMS/HCC V24, CMS/HCC V28) DX:Diabetic neuropathy (HCC) Gout 03/21/2019 DX:Gout History of bilateral knee replacement 03/21/2019 DX:History of bilateral knee replacement History of sepsis 03/21/2019 DX:History of sepsis; COMMENT: 12/08/2018 hospitalization in [place]. Cough DX:Cough Postnasal drip DX:Postnasal dri p [...] drink = 0.6 oz pur e alcohol) Comments Unknown Sex and Gender Information Value Date Recorded Sex Assigned at Not on file Legal Sex Female 10:27 PM EST Gender Identity Not on file Sexual Orientation Not on file Obstetrics History Plan of Treatment Health Maintenance Due Date Last Done Comments Breast Cancer Screening 1955 Diabetes: Annual GFR (Glomer ular Filtration Rate) 1955 Diabetes: Annual Foot Exam 1965 Diabetes: Annual Retina Eye Exam 1965 DTaP,Tdap,and Td Vaccines (1 - Tdap) 1974 Pneumococcal Vaccine: 50+ Ye ars (1 of 2 - PCV) 1974 Zoster Vaccines (1 of 2) 2005 RSV Immunization Adult Patie nts (1 - Risk 60-74 years 1-dose series) 2015 Cholesterol Screening (Lipid Panel) 05/03/2022 Falls Risk Assessment 05/03/2022 Hepatitis C Screening 05/03/2022 Osteoporosis Screening (Bone Density Screening) 05/03/2022 Social Influencers of Health Screening 05/03/2022 Diabetes: Annual Urine Albumin-Creatinine Ratio (uACR) 05/09/2022 Diabetes: Blood Sugar Contro l Test (HGBA1C) 05/09/2022 Hypertension/CHF/CAD Annual BMP Blood Test 05/09/2022 COVID-19 Vaccine (1 - 2023-2 5 season) 2024 Depression Screening 05/25/2024 Influenza Vaccine (#1) 2025 Colorectal Cancer Screening: Colonoscopy 02/21/2025 02/22/2020 HIB [...] patient's age to complete this topic Meningococcal B Vaccine Aged Out No l onger eligible based on patient's age to complete [...] Region Laterality Modality Other Historical Provider MD HEALTH MAINTENANCE Final Result from Last 3 Months or Most Recently Relevant to Health Maintenance Insurance Care Teams Coal Cager Relationship Specialty Start Date End Date Min Santana DO [address], [place] PCP - General 06/19/09
== END 2025-01-03 11:17 | disposition home or self-care (01) ==
LOC: HO.HCS 09:52
PROVIDERS: PCP Internal Medicine; Visit Provider Nurse Practitioner Family
DX: J96.10 Chronic respiratory failure, unspecified whether with hypoxia or hypercapnia (principal); E66.01 Morbid (severe) obesity due to excess calories; R94.39 Abnormal result of other cardiovascular function study; Z99.81 Dependence on supplemental oxygen; I44.7 Left bundle-branch block, unspecified; R07.89 Other chest pain
CPT/HCPCS: 99214; G2211

== ENCOUNTER → 2025-01-03 09:51 | Outpatient (BNVA) | payer MEDICARE, SELFPAY | PROVIDERS: PCP Internal Medicine; Visit Provider Nurse Practitioner Family | DX: J96.10 Chronic respiratory failure, unspecified whether with hypoxia or hypercapnia (principal); I44.7 Left bundle-branch block, unspecified; R06.00 Dyspnea, unspecified; R94.39 Abnormal result of other cardiovascular function study; E66.01 Morbid (severe) obesity due to excess calories; R07.89 Other chest pain; Z99.81 Dependence on supplemental oxygen; Z68.43 Body mass index [BMI] 50.0-59.9, adult; Z79.890 Hormone replacement therapy; Z79.4 Long term (current) use of insulin; Z79.84 Long term (current) use of oral hypoglycemic drugs; Z79.01 Long term (current) use of anticoagulants | CPT/HCPCS: 99212 ==

== ENCOUNTER 2025-03-02 10:41 | Outpatient (AMB) | payer MEDICARE, SELFPAY ==
[2025-03-02 11:05] VITALS: BP 132/74; PULSE 62; O2SAT 93; BMI 25.4
--- NOTE | 2025-03-02 11:05 | MHC.OFFVIS ---
Vital Signs 03/02/25 11:05 Height 5 ft 2 in Weight 139 lb BMI 25.4 BP 132/74 Blood Pressure Location Rt brachial Position Sitting Pulse 62 Pulse Source Pulse Oximeter Pulse Oximetry (%) 93 Oxygen Delivery Method Room Air Intake Visit Reasons: dyspnea Allergies doxycycline Allergy (Unknown, Verified 03/02/25 11:11) Unknown empagliflozin (From Jardiance) Allergy (Unknown, Verified 03/02/25 11:11) Unknown sitagliptin (From Januvia) Adverse Reaction (Intermediate, Verified 03/02/25 11:11) pancreatitis HPI HPI dyspnea: Details: 69-year-old lady, active 40+ pack-year smoker, followed for underlying COPD and pulmonary nodules. Patient pulmonary function tests show no fixed obstruction or significant bronchodilator response. She continues to require supplemental oxygen. No recent exacerbations. No response to a trial of inhaled bronchodilators. Patient did have recent CT abdomen for evaluation of kidney stones that demonstrated possible bibasilar atelectasis versus early fibrosis. [facility] Surgical History History of carpal tunnel release Hx of knee surgery Family History Father Diabetes Mother Afib Sister Cardiomyopathy Social History Household Members: Spouse Years Smoked: 15 Second Hand Smoke Exposure: No Review of Systems Const Denies daytime sleepiness, Denies excessive sweating, Denies fatigue, Denies fever(s), Denies lethargy, Denies malaise, Denies night sweats, Denies snoring and Denies weight loss Eyes Denies blurry vision and Denies itchy eyes ENT Denies nasal congestion, Denies post nasal drip, Denies sinus pain, Denies sinus pressure and Denies other ( Thrush) Card Denies chest pain, Denies pedal edema, Denies dyspnea, Reports dyspnea on exertion, Denies orthopnea and Denies paroxysmal nocturnal dyspnea Resp Denies cough, Denies hemoptysis, Denies excessive phlegm production, Denies dyspnea, Reports dyspnea on exertion, Denies snoring and Denies wheezing GI Denies abdominal pain and Denies heartburn Musc Denies myalgias, Denies arthralgias and Denies joint swelling Skin/Breast Denies rash Neuro Denies memory loss and Denies seizure-like activity Psych Denies abnormal sleep pattern, Denies anxiety and Denies memory loss Endo Denies excessive sweating, Denies fatigue and Denies heat intolerance Fabian/Lymph Denies easy bruising Aller/Immun Denies itchy eyes, Denies seasonal rhinorrhea and Denies wheezing Physical Exam Vital Signs: Last Vital Signs Pulse 62 03/02/25 11:05 BP 132/74 03/02/25 11:05 Pulse Ox 93 03/02/25 11:05 Oxygen Delivery Method Room Air 03/02/25 11:05 BMI result Body Mass Index 25.4 Const General: no acute distress and alert Nutritional Appearance: obese Orientation/consciousness: Other orientation findings ( oriented) HEENT Head: Yes atraumatic Eyes General: appearance normal, both eyes and all related structures Sclerae: sclerae normal EOM: EOMs intact bilaterally Neck Neck: Yes supple Lymphatic: no lymphadenopathy noted Resp Effort & Inspection: normal respiratory effort and no use of accessory muscles Auscultation: clear to auscultation bilaterally Cardio Rate: regular rate Rhythm: regular rhythm Heart sounds: no gallops, no murmurs and no rubs Skin General skin exam: other ( warm) Extrem General: No clubbing, No cyanosis and No edema Assessment & Plan Assessment & Plan (1) Restrictive ventilatory defect: Code(s): R94.2 - Abnormal results of pulmonary function studies Category: Medical Plan: Secondary to body habitus. Continue to monitor clinically. (2) Supplemental oxygen dependent: Code(s): Z99.81 - Dependence on supplemental oxygen Category: Medical Plan: Continue supplemental oxygen to maintain O2 saturation above 88%. (3) Abnormal CT scan, chest: Code(s): R93.89 - Abnormal findings on diagnostic imaging of other specified body structures Category: Medical Plan: Recent CT abdomen with concern for possible bibasilar atelectasis versus fibrosis, will obtain dedicated CT chest. Coding Level of Care Code Est Pt Level 4 (34406) Diagnoses Restrictive ventilatory defect R94.2 Supplemental oxygen dependent Z99.[address] scan, chest R93.89
== END 2025-03-02 11:42 | disposition home or self-care (01) ==
LOC: HO.HPS 10:41
PROVIDERS: PCP Internal Medicine; Visit Provider Internal Medicine Pulmonary Disease
DX: R94.2 Abnormal results of pulmonary function studies (principal); Z99.81 Dependence on supplemental oxygen; R93.89 Abnormal findings on diagnostic imaging of other specified body structures
CPT/HCPCS: 99214

== ENCOUNTER → 2025-03-02 10:41 | Outpatient (BNVA) | payer MEDICARE, SELFPAY | PROVIDERS: PCP Internal Medicine; Visit Provider Internal Medicine Pulmonary Disease | DX: R94.2 Abnormal results of pulmonary function studies (principal); R93.89 Abnormal findings on diagnostic imaging of other specified body structures; R06.02 Shortness of breath; Z99.81 Dependence on supplemental oxygen; Z72.0 Tobacco use | CPT/HCPCS: 99212 ==

== ENCOUNTER 2025-03-21 09:57 | Outpatient (REF) | payer MEDICARE, SELFPAY ==
--- NOTE | ~2025-03-21 | CT_ITS ---
EXAMINATION: CT CHEST WITHOUT IV CONTRAST INDICATION: R93.89 - Abnormal findings on diagnostic imaging of other specified body... COMPARISON: Paxil is made with the prior examination dated 03/10/2024. TECHNIQUE: Helical CT scan of the chest was performed without intravenous contrast. Coronal and sagittal reformatted images were generated and reviewed. This CT exam was performed with one or more of the following dose reduction techniques: automated exposure control, adjustment of the mA and/or kV according to patient size, use of iterative reconstruction technique. DLP: 324 mGy-cm CHEST: THYROID: The thyroid is unremarkable. LUNGS: The examination is moderately degraded by patient respiratory motion. There is scarring at the left lung base. Scattered groundglass attenuation is likely due to respiratory motion. No definite pulmonary nodules are identified. MEDIASTINUM: There is no mediastinal lymphadenopathy. YESSI: Evaluation of the hilar regions is limited by lack of intravenous contrast material. CARDIOVASCULATURE: The heart is enlarged. There is no pericardial effusion. The thoracic aorta is normal in caliber. DEGREE OF CORONARY CALCIFICATION: mild PLEURA: There is no pleural effusion. No pneumothorax. MAIN AIRWAYS: The mainstem bronchi and proximal branches are patent. AXILLA: There is no axillary lymphadenopathy. BONES AND SOFT TISSUES: There is a 1.6 cm mass in the medial left breast. There is degenerative disc disease of the spine. UPPER ABDOMEN: The visualized portions of the liver, spleen, and adrenals have an unremarkable unenhanced appearance. CT/CT chest wo IV con IMPRESSION: 1. The examination is moderately degraded by patient motion. No definite pulmonary nodules are identified. 2. 1.6 cm mass in the medial aspect of the left breast. Correlation with mammography and breast ultrasound is recommended. 3. These findings were discussed with Dr. Morrissey by secure text message on 03/21/2025 at 10:51 AM. Electronically signed by: Garret Schmid MD 03/21/2025 10:52 AM EDT
--- OUTSIDE RECORDS SUMMARY | 2025-03-21 11:44 | XMS_ITS | Clinical Summary ---
Author Organization [facility] Address [address] [place] [id number] Phone Care Team Providers Care Manager Epic Name Role Phone Louise Schultz MD Primary Care Provider [phone] Allergies Active Allergy Reactions Criticality Noted Date [...] IN THE EVENING 07/02/19 23 Active L. acidophilus/Bifid. animalis 32 billion cell Cap Take 1 [...] REST OF THE WEEK 07/01/19 Active levothyroxine (SYNTHROID,LEVOTHR OID) 25 MCG tabletIndications: Acquired hypothyroidism TAKE 1 TABLET(25 MCG) BY MOUTH DAILY ON AN EMPTY STOMACH 90 tablet 1 11/16/19 24 Active BD INOCENCIO 2ND GEN PEN NEEDLE 32 gauge x NdleIndications:Ty pe 2 diabetes mellitus with hyperglycemia, with long-term current use of insulin 1 each by Miscellaneous route 5 (five) times a day. 500 each 3 06/15/19 25 Active insulin lispro (ADMELOG, HUMALOG) 100 unit/mL injection penIndications:Typ e 2 diabetes mellitus with hyperglycemia, with long-term current use of insulin Inject 6 to 32 units under the skin before each main meal and at bed 4 times a day 120 mL 2 06/15/19 25 Active ACCU-CHEK GUIDE TEST STRIPS Strp stripsIndications: Type 2 diabetes mellitus with hyperglycemia, with long-term current use of insulin 1 each by Miscellaneous route 5 (five) times a day. 500 strip 3 12/14/19 25 Active lancets MiscIndications:Ty pe 2 diabetes mellitus with hyperglycemia, with long-term current use of insulin 1 each by Miscellaneous route 5 (five) times a day. 500 each 3 12/14/19 25 Active LANTUS SOLOSTAR U-100 INSULIN 100 unit/mL (3 mL) InPn injection penIndications:Typ e 2 diabetes mellitus with hyperglycemia, with long-term current use of insulin Inject up to 70 units under the skin nightly 60 mL 2 01/06/20 25 Active metFORMIN (GLUCOPHAGE) 500 MG tabletIndications: Type 2 diabetes mellitus with hyperglycemia, with long-term current use of insulin TAKE 1 TABLET(500 MG) BY MOUTH DAILY WITH BREAKFAST 90 tablet 1 02/07/20 25 Active Active Problems Problem Noted Date Diagnosed Date [facility] current use of insulin 06/17/2024 Assessment & Plan (06/17/2024 9:36 AM EST): Will increase her lispro sliding scale by 2-4 units at each meal depending upon carbohydrate intake [facility] current use of oral hypoglycemic drug 06/17/2024 [...] for dinner while helping pack up her [id number]'s house. This is slowing down and when she is cooking at home her evening glucose levels are better. Will maintain her regimen. Continue to work on eating healthy and trying to be active. To call or message with any issues managing her glucose levels. Up to date with [facility]. Labs ordered to be done prior to [...] her glucose levels. Up to date with [facility] Assessment & Plan (09/23/2022 10:38 AM EDT): [...] levels. Up to date with [facility]. Labs reviewed Assessment & Plan (06/17/2024 9:35 [...] Up to date with ophtho. Labs ordered Assessment & Plan (07/29/2023 11:39 [...] her glucose levels. Up to date with [facility]. Assessment & Plan (05/11/2023 1:07 PM EST): [...] her glucose levels. Up to date with [facility]. Labs ordered today Assessment & Plan (01/22/2023 [...] her glucose levels. Up to date with dorian. Will order labs at her next visit [...] Encounters Date Type Department Care Team Description 02/06/2025 Refill [facility] [address] [place] [address] Erin Allison PA-C Medication Refill 01/04/2025 Refill [facility] [address] [place] [address] Tricia Yang CMA Medication Refill from Last 3 Months Family History Medical History Relation Comments Diabetes Father Heart disease Father Kidney disease Father Heart disease Mother Autoimmune disease Sister Heart disease Sister Osteoporosis Sister Relation Status Comments Father Mother Sister Social History Tobacco Use Types Packs/Day Years Used Date Smoking Tobacco: Former Cigarettes 3 15 1 989 - 2004 Smokeless Tobacco: Never Alcohol Use Standard Drinks/Week [...] 10:00 AM EST Office Visit [place] [address] Erin Allison PA-C [address] [place] [address] [email or web address] Health Maintenance Due Date Last Done Comments Adult Td,Tdap Booster 1955 DEPRESSION SCREENING 1967 SMOKING Hx and SMOKELESS TOBACCO SCREENING 1968 HEPATITIS C SCREENING 1973 PNEUMOCOCCAL VACCINES (50+ years) (1 of 2 - PCV) 1974 MAMMOGRAM 1995 COLOGUARD 2000 COLONOSCOPY 2000 COLORECTAL CANCER SCREENING 2000 FIT TEST 2000 FOBT 2000 SIGMOIDOSCOPY 2000 VIRTUAL COLONOSCOPY 2000 RSV VACCINE (1 - Risk 50-74 years 1-dose series) 2005 ZOSTER VACCINES (1 of 2) 2005 OSTEOPOROSIS SCREENING INITIAL (ONE-TIME) 2020 HEMOGLOBIN A1C 03/05/2023 09/03/2022 DIABETIC EYE EXAM 11/02/2024 11/03/2023 POTASSIUM LEVEL 12/21/2024 12/22/2023, 08/11/2023 INFLUENZA VACCINE (#1) 2024 COVID-19 VACCINE ( season) 2025 BLOOD PRESSURE 03/22/2025 09/20/2024 CREATININE LEVEL 08/19/2025 08/19/2024, , 08/11/2023, Additional history exists TSH LEVEL 08/19/2025 08/19/2024, 11/24, 01/22/2023 HEPATITIS A VACCINES Aged Out No [...] TSH (08/19/2024 3:31 PM EDT) Historical Provider LAB BLOOD ORDERABLES Sofia l Result * Basic metabolic panel (12/22/2023 3:16 PM EDT) Blood Erin Allison PA-C LAB BLOOD ORDERABL ES Final Result [facility] [address] [place] [address] * DIABETES EYE EXAM FOR RESULT ENTRY ONLY (11/03/2023) HM EYE EXAM [facility] [place] Historical Provider MD HEALTH MAINTENANCE Final Result * Outside HbA1c (09/03/2022) Hemoglobin A1c - External 8 % us Historical Provider MD LAB BLOOD ORDERABLES Sofia l Result from Last 3 Months or Most Recently Relevant to Health Maintenance [place] [address] [place] [address] MEDICARE REPLACEMENT MEDICARE PART A & B [facility] MEDICARE REPLACEMENT MEDICARE PART A & B MEDICARE REPLACEMENT MEDICARE PART A & B MEDICARE REPLACEMENT MEDICARE PART A & B MEDICARE REPLACEMENT MEDICARE PART A & [place] [address] [place] [address] MEDICARE REPLACEMENT MEDICARE PART A & B Care Teams Manager Epic Relationship Specialty Start Date End Date Louise Schultz MD [address] [place] [id number] [email or web address] PCP - General 07/24/22 Additional Source Comments The information contained in this document represents components of the legal health record. It is not the complete legal health record.[facility]
--- OUTSIDE RECORDS SUMMARY | 2025-03-21 11:44 | XMS_ITS | Clinical Summary ---
Author Organization [facility] Address [address] [place] [address] Care Team Providers Care Granite Polisher Machine Name Role Phone Louise Schultz Primary Care Provider [phone] Allergies Active Allergy Reactions Criticality Noted Date [...] Lung Cancer Screening (Baseline) 06/13/2023 06/13/2022, 12/08/2018 Alcohol/Substance Use Screening 05/25/2024 Depression Screening and Follow-Up 05/25/2024 Health Care Proxy Review 05/25/2024 Social Drivers of Health Annual Screening 05/25/2024 COVID-19 Vaccine ( season) 2025 03/19/2022, 08/30/2021, 03/20/2021, Additional history exists Influenza Vaccine (#1) 2025 , 02/18/2019, 02/22/2018, Additional history exists Hepatitis C Screening Completed 12/10/2018 Hepatitis B Vaccines Aged Out No long er eligible based on patient's age to complete this topic Procedures * Due to [place] law, this organization might not be sharing negative HIV tests. Procedure Name Priority Date/Time Associated Diagnosis Comments CT CHEST INTERSTITIAL LUNG DISEASE/FIBROSIS Routine 06/13/2022 4:07 PM EST Interstitial lung disease from Last 3 Months or Most Recently Relevant to Health Maintenance Results * Due to [place] law, this organization might not be sharing [...] to obtain the completed interpretation. Workstation ID: [id number] Up-to-date CT equipment and radiation dose reduction [...] of vertebral body heights. Resulting Agency Comment [id number] Procedure Note Willy Solo MD - 06/17/2022 [...] possible to obtain thecompleted interpretation. Workstation ID: [id number] Up-to-date CT equipment and radiation dose reduction techniques wereemployed. CTDIvol: 15.8 - 18.3 mGy. DLP: 1236 mGy-cm. Alex Moctezuma MD [facility] CT PROCEDURES Final Result from Last 3 Months or Most Recently Relevant to Health Maintenance Insurance [facility] MCR REPLACE AARP Care Teams Granite Polisher Machine Relationship Specialty Start Date End Date Louise Schultz [address] [place] [address] PCP - General Internal Medicine 10/18/21
--- OUTSIDE RECORDS SUMMARY | 2025-03-21 11:44 | XMS_ITS | Clinical Summary ---
Author Organization [address] [place] [address] [place] [phone] Phone Care Team Providers Care Plastics Fabricator Or Welder Name Role Phone Min Santana Primary Care Provider [phone] Allergies Active Allergy Reactions Criticality Noted Date [...] daily. Daily as directed. Coumadin managed by [facility]. Active CARVEDILOL ORAL Take 3.125 mg by [...] Active blood sugar diagnostic ([facility]) 9 Active insulin lispro (HumaLOG KwikPen Insulin) 100 unit/mL injection pen INJECT 4 12 UNITS PER SLIDING SCALE 3 TIMES A DAY BEFORE MEALS 0 Active insulin glargine (Lantus Solostar U-100 Insulin) 100 unit/mL (3 mL) injection pen 0 Active pen needle, diabetic 32 gauge x /32 needle TO INJECT INSULIN 4 TIMES DAILY [...] 2 diabetes mellitus wit h diabetic neuropathy (CMS/[facility] V24, CMS/[facility] V28) 04/07/2024 Cardiomyopathy (CMS/[facility] V24, CMS/[facility] V28) 2019 Overview (04/07/2024): H/o NSTEMI [...] extremity H/O non-ST elevation myocardial infarction (NSTE NM) 05/09/2020 Overview (04/07/2024): NSTEMI in 2019 in [...] replacement 03/21/2019 Chronic cholecystitis 01/06/2019 Stroke (cerebrum) [place] [place] [facility] [place] 05/2015 Encounters Date Type Department Care Team Description 02/03/2025 Lab Requisition [facility] [address] [place] [phone] Emilio Lennon PA Urinary tract infection, site not specified 01/24/2025 Lab Requisition [facility] [address] [place] [phone] Emilio Lennon PA Urinary tract infection, site not specified from Last 3 Months Surgical History Surgery Date Site/Laterality Comments CARPAL TUNNEL RELEASE PROCEDURE: HISTORICAL CARPAL TUNNEL REL TOTAL KNEE ARTHROPLASTY Bilateral PROCEDURE: KY ARTHRP KNE CONDYLE&PLATU MEDIAL&LAT COMPARTMENTS TUBAL LIGATION PROCEDURE: HISTORICAL TUBAL LIGATION DENTAL SURGERY PROCEDURE: [place] UNLISTED PROCEDURE DENTOALVEOLAR STRUCTURES COLONOSCOPY PROCEDURE: HISTORICAL COLONOSCOPY; COMMENT: Performed in 2006 COLONOSCOPY 02/22/2020 PROCEDURE: HISTORICAL COLONOSCOPY; COMMENT: tubular adenoma UPPER GASTROINTESTINAL ENDOSCOPY 02/22/2020 PROCEDURE: KY UPPER GI ENDOSCOPY PERFORMED; COMMENT: normal CARDIAC CATHETERIZATION PROCEDURE: HISTORICAL CARDIAC CATH Medical History Medical History Date Comments Hypertension DX:Hypertension Hyperlipidemia DX:Hyperlipidemi a COPD (chronic obstructive pu lmonary disease) ([facility] [place] [facility] [place] DX:COPD (chronic o bstructive pulmonary disease) ([facility]) Arthritis DX:Arthritis IBS (irritable bowel syndrome) D X:IBS (irritable bowel syndrome) GERD (gastroesophageal reflu x disease) DX:GERD (gastroesophageal re flux disease) Gastroparesis DX:Gastroparesis Acute acalculous cholecystitis D X:Acute acalculous cholecystitis Acute pancreatitis DX:Acute panc reatitis Stroke (cerebrum) ([facility] V 24, [facility] [place]) 2015 DX:Stroke (cerebrum) ([facility]) Bilateral leg edema DX:Bilateral leg edema Left bundle branch block DX:Left bundle branch block Type 2 diabetes mellitus wit h diabetic neuropathy ([facility] V24, [facility] V28) DX:Type 2 diabetes mellitus with diabetic neuropathy (HCC) Diabetic neuropathy ([facility] V24, [facility] V28) DX:Diabetic neuropathy ([facility]) Gout 03/21/2019 DX:Gout History of bilateral knee replacement 03/21/2019 DX:History of bilateral knee replacement History of sepsis 03/21/2019 DX:History of sepsis; COMMENT: 12/08/2018 hospitalization in [place]. Cough DX:Cough Postnasal drip DX:Postnasal dri p [...] ars (1 of 2 - PCV) 1974 RSV Immunization Adult Patie nts (1 - Risk 50-74 years 1-dose series) 2005 Zoster Vaccines (1 of 2) 2005 Cholesterol Screening (Lipid Panel) 05/03/2022 Falls Risk Assessment 05/03/2022 Hepatitis C Screening 05/03/2022 Osteoporosis Screening (Bone Density Screening) 05/03/2022 Social Influencers of Health Screening 05/03/2022 Diabetes: Annual Urine Albumin-Creatinine Ratio (uACR) 05/09/2022 Diabetes: Blood Sugar Contro l Test (HGBA1C) 05/09/2022 Hypertension/CHF/CAD Annual BMP Blood Test 05/09/2022 Depression Screening 05/25/2024 COVID-19 Vaccine (2023-2 5 season) 2025 Influenza Vaccine (#1) 2025 Colorectal Cancer Screening: [...] Procedure Name Priority Date/Time Associated Diagnosis Comments NON-GYNECOLOGIC CYTOLOGY Routine 01/24/2025 12:00 AM EDT Urinary tract infection, site not specified CULTURE URINE Routine 01/24/2025 12:00 AM EDT Urinary tract infection, site not specified HM COLONOSCOPY Routine 02/22/2020 from Last 3 Months or Most Recently Relevant to Health Maintenance Results * Culture urine (01/24/2025 12:00 AM EDT) Culture, Urine No growth 01/25/2025 1:34 PM EDT [facility] Urine Urine specimen obtained by clean catch procedure / Unknown 01/24/2025 01/24/2025 5:54 PM EDT Emilio [facility] MICROBIOLOGY - NERAL ORDERABLES Final Result [facility] [address] [place] [address], [place] [phone] * Non-gynecologic cytology (01/24/2025 12:00 AM EDT) Final Diagnosis A. Urine, Voided, ([id number]): Negative for high grade urothelial carcinoma. Acute inflammatory cells are present. Results of UroVysion fluorescence in situ hybridization (FISH) testing: CEP3: Normal CEP7: Normal CEP17: Normal LSI 9p21: Normal Interpretation: Normal profile Controls stained appropriately. Note: The results are intended as a screening device and should be interpreted in association with other clinical and pathological findings. 02/17/2025 5:55 PM EDT [facility] Specimen A Adequacy Satisfactory for evaluation 02/17/2025 5:55 PM EDT [facility] Clinical Information UTI N39.0 Urine Cytology/FISH (now) 02/17/2025 5:55 PM EDT [facility] Gross Description A. Urine, Voided, ([id number]): Received one ThinPrep slide for cytology and one ThinPrep slide for UroVysion FISH 02/17/2025 5:55 PM EDT [facility] Disclaimer Unless otherwise specified, all tissue is 10% NB formalin fixed and paraffin embedded. Technical pathology services provided by [facility] at [address] [place] [address] [address], [place] [address] (CLIA #[id number]/Usha Chavez MD, Venetian Blind Cleaner And Repairer) 02/17/2025 5:55 PM EDT [facility] Urine Urine specimen from urethra / Unknown 01/24/2025 02/03/2025 11:46 AM EDT Emilio COH[facility] CYTOLOGY ORDERABL ES Final Result [facility] [address] [place] [address], * Colonoscopy (02/22/2020) Colonoscopy no interpretation , abstracted Anatomical Region Laterality Modality Other Historical Provider HEALTH MAINTENANCE Final Result from Last 3 Months or Most Recently Relevant to Health Maintenance Insurance [facility] Care Teams Plastics Fabricator Or Welder Relationship Specialty Start Date End Date Min Santana DO [address] [place], [place] PCP - General 06/19/09
--- OUTSIDE RECORDS SUMMARY | 2025-03-21 11:44 | XMS_ITS | Encounter Summary ---
Author Organization [facility] Address [address] [place] [address] Care Team Providers Care Fish Housekeeper Name Role Phone Min Santana Primary Care Provider [phone] Encounter Details Date Type Department Care Team (Late st Contact Info) Description 02/03/2025 Lab Requisition [facility] - Main Lab [address] [facility] [place] [phone] Emilio Lennon PA [address] [facility] [address] [place] [phone] Urinary tract infection, site not specified Social History Tobacco Use Types Packs/Day Years Used Date Smoking Tobacco: Former Smokeless Tobacco: Former Alcohol Use Standard Drinks/Week Comments Not Asked 0 (1 standard drink = 0.6 oz pur e alcohol) Comments Unknown Sex and Gender Information Value Date Recorded Sex Assigned at Not on file Legal Sex Female 10:27 PM EST Gender Identity Not on file Sexual Orientation Not on file documented as of this encounter Plan of Treatment Not on file documented as of this encounter Procedures Procedure Name Priority Date/Time Associated Diagnosis Comments NON-GYNECOLOGIC CYTOLOGY Routine 01/24/2025 12:00 AM EDT Urinary tract infection, site not specified documented in this encounter Results * Non-gynecologic cytology (01/24/2025 12:00 AM EDT) Final Diagnosis A. Urine, Voided, ([id number]): Negative for high grade urothelial carcinoma. Acute inflammatory cells are present. Results of UroVysion fluorescence in situ hybridization (FISH) testing: CEP3: Normal CEP7: Normal CEP17: Normal LSI 9p21: Normal Interpretation: Normal profile Controls stained appropriately. Note: The results are intended as a screening device and should be interpreted in association with other clinical and pathological findings. 02/17/2025 5:55 PM EDT [facility] Specimen A Adequacy Satisfactory for evaluation 02/17/2025 5:55 PM EDT [facility] Clinical Information UTI N39.0 Urine Cytology/FISH (now) 02/17/2025 5:55 PM EDT [facility] Gross Description A. Urine, Voided, ([id number]): Received one ThinPrep slide for cytology and one ThinPrep slide for UroVysion FISH 02/17/2025 5:55 PM EDT [facility] Disclaimer Unless otherwise specified, all tissue is 10% NB formalin fixed and paraffin embedded. Technical pathology services provided by [facility] at [address] [facility] [address], [place] [address] (CLIA #[id number]/Usha Chavez MD, Machine Chain Maker) 02/17/2025 5:55 PM EDT [facility] Urine Urine specimen from urethra / Unknown 01/24/2025 02/03/2025 11:46 AM EDT us Emilio COHEN LAB CYTOLOGY ORDERABL ES Final Result [facility] [address] [place] [address], documented in this encounter Visit Diagnoses Diagnosis Urinary tract infection, site not specified documented in this encounter Care Teams Fish Housekeeper Relationship Specialty Start Date End Date Min Santana DO [address] [place] [address] PCP - General 06/19/09 documented as of this encounter
--- OUTSIDE RECORDS SUMMARY | 2025-03-21 11:44 | XMS_ITS | Encounter Summary ---
Author Organization [facility] Address [address] [place] [address] Care Team Providers Care Air Defense Artillery Senior Sergeant Name Role Phone Min Santana Primary Care Provider [phone] Encounter Details Date Type Department Care Team (Late st Contact Info) Description 01/24/[address] [facility] - Main Lab [address] [facility] [place] [address] Emilio Lennon PA [address] [phone] Urinary tract infection, site not specified Social [...] Procedure Name Priority Date/Time Associated Diagnosis Comments CULTURE URINE Routine 01/24/2025 12:00 AM EDT Urinary tract infection, site not specified documented in this encounter Results * Culture urine (01/24/2025 12:00 AM EDT) Culture, Urine No growth 01/25/2025 1:34 PM EDT [facility] Urine Urine specimen obtained by clean catch procedure / Unknown 01/24/2025 01/24/2025 5:54 PM EDT Emilio COHEN LAB MICROBIOLOGY - GE NERAL ORDERABLES Final Result [facility] [address] [place] [address], documented in this encounter Visit Diagnoses Diagnosis Urinary tract infection, site not specified documented in this encounter Care Teams Air Defense Artillery Senior Sergeant Relationship Specialty Start Date End Date Min Santana DO [address] [place] [address] PCP - General 06/19/09 documented as of this encounter
== END 2025-03-21 09:58 | disposition home or self-care (01) ==
LOC: HO.CT 09:57
PROVIDERS: PCP Internal Medicine; Visit Provider Internal Medicine Pulmonary Disease
DX: R93.89 Abnormal findings on diagnostic imaging of other specified body structures (principal)
CPT/HCPCS: 71250

== ENCOUNTER → 2025-03-21 09:58 | Outpatient (BNV) | payer MEDICARE, SELFPAY | PROVIDERS: PCP Internal Medicine; Visit Provider Radiology Diagnostic Radiology | DX: N63.20 Unspecified lump in the left breast, unspecified quadrant (principal) | CPT/HCPCS: 71250 ==

== ENCOUNTER 2025-05-02 12:51 | Outpatient (AMB) | payer MEDICARE, SELFPAY ==
--- NOTE | 2025-05-02 08:49 | A.OFFVIS_ITS ---
Vital Signs 05/02/25 12:56 Height 5 ft 2 in Weight 301 lb 9.478 oz BMI 55.2 BP 128/66 Blood Pressure Location Rt brachial Position Sitting Pulse 70 Pulse Source Monitor Intake Visit Reasons: Hospital Follow up (NS) Caramel Candy Maker Required: No Accompanied by: Spouse Allergies doxycycline Allergy (Unknown, Verified 05/02/25 13:01) Unknown empagliflozin (From Jardiance) Allergy (Unknown, Verified 05/02/25 13:01) Unknown sitagliptin (From Januvia) Adverse Reaction (Intermediate, Verified 05/02/25 13:01) pancreatitis sulfamethoxazole (From Bactrim) Adverse Reaction (Intermediate, Verified 02/16 13:01) Unknown trimethoprim (From Bactrim) Adverse Reaction (Intermediate, Verified 05/02/25 13:01) Unknown cephalexin Adverse Reaction (Verified 05/02/25 13:01) high bp Medication List - Last Reconciled 05/02/25 by Braden Stanley NP albuterol sulfate 2.5 mg inhalation Q4-6H PRN carvedilol 6.25 mg PO BID cefdinir 600 mg PO BID insulin glargine (Lantus Solostar U-100 Insulin) 50 units subcut BEDTIME insulin lispro (Humalog KwikPen (U-100) Insulin) subcut ipratropium bromide 2.5 mL inhalation Q6H PRN levothyroxine 25 mcg PO DAILY metformin 500 mg PO ONCE pantoprazole 40 mg PO BID prednisone 10 mg PO DIRECTED pregabalin 300 mg PO BID rosuvastatin 20 mg PO BEDTIME sacubitril-valsartan 49-51 mg (Entresto) 1 tab PO BID torsemide 20 mg PO DAILY warfarin 10 mg PO DAILY HPI Comments Details: This is a 69-year-old female patient coming in for a hospital discharge follow- up, accompanied by her . Patient with a history of hypertension, hyperlipidemia, diabetes, left bundle branch block, obesity, COPD on home O2, prior history of DVT on warfarin, and HFrEF. Patient was recently in the hospital for shortness of breath and fluid overload. Patient underwent an echo study that showed reduced EF at 50%. Patient was diuresed and was also treated for pneumonia. During the hospital stay patient was also noted to have episodes of AFib. Given the reduced EF, patient was started on Entresto and torsemide. Today, patient is reporting that since hospital discharge she was having increased leg edema and therefore her primary care increased her torsemide to 20 mg daily yesterday. Patient is otherwise reporting compliance with her medications and is denying any exertional chest pain, shortness of breath, palpitations, dizziness, orthopnea, PND, presyncope, or syncope. Patient brought a list of questions to today's visit regarding her recent hospital visit. [facility] Surgical History History of carpal tunnel release Hx of knee surgery Family History Father Diabetes Mother Afib Sister Cardiomyopathy Social History Household Members: Spouse Years Smoked: 15 Second Hand Smoke Exposure: No Review of Systems Const Denies daytime sleepiness, Denies difficulty sleeping, Denies snoring, Denies stops breathing during sleep and Denies weakness Card Denies chest pain, Denies rapid heart rate, Denies irregular heart rhythm, Denies claudication, Denies leg edema, Denies lightheadedness, Denies palpitations, Denies dyspnea, Reports dyspnea on exertion, Denies orthopnea, Denies paroxysmal nocturnal dyspnea and Denies slow heart rate Resp Denies cough, Denies dyspnea, Reports dyspnea on exertion and Denies snoring GI Reports no additional complaints, Denies hematochezia, Denies change in stool character and Denies dyspepsia Musc Denies abnormal gait, Denies muscle weakness and Denies numbness Neuro Denies abnormal gait, Denies numbness and Denies weakness Endo Denies palpitations Physical Exam Vital Signs: Last Vital Signs Pulse 70 05/02/25 12:56 BP 128/66 05/02/25 12:56 BMI result Body Mass Index 55.2 Const General: cooperative, healthy appearing, comfortable and no acute distress Orientation/consciousness: patient oriented x3 HEENT Head: Yes normal to inspection Neck Neck: Yes normal visual inspection, Yes trachea midline and Yes supple Chest Chest palpation & inspection: normal inspection of the chest Resp Other: On continuous 2 L nasal cannula Effort & Inspection: normal respiratory effort Auscultation: clear to auscultation bilaterally, no crackles, no rales, no rhonchi and no wheezes Cardio Jugular venous distension: no JVD Palpation: normal PMI Rate: regular rate Rhythm: regular rhythm Heart sounds: S1 normal heart sound present, S2 normal heart sound present, no click, no gallops, no murmurs and no rubs Peripheral pulses: Peripheral pulses 2+ throughout GI Inspection: Yes normal to inspection Palpation (GI): Soft to palpation Auscultation: normal bowel sounds Skin General skin exam: no rashes or lesions noted Neuro General: patient oriented x3 Extrem Other: Bilateral 1+ pitting edema General: Yes normal to inspection and No calf tenderness Psych Appearance: grossly normal Mental Status: mental status grossly normal Speech and movement: Normal speech and movement present Office Procedures EKG Details: EKG today showed normal sinus rhythm, rate 70 beats per minute, left axis deviation, left bundle branch block, [place] SD, [place]. [id number], Complete Assessment & Plan Assessment & Plan (1) Cardiomyopathy: Code(s): I42.9 - Cardiomyopathy, unspecified Category: Medical Plan: 04/28/2025-echo study at [facility] showed a reduced LVEF between 45-50% with [id number] concentric LV wall thickness, and septal contraction abnormality due to LBBB. Patient was recently in the hospital for shortness of breath and fluid overload where patient was treated for acute exacerbation of COPD and HFrEF. Patient was discharged on Entresto and 10 mg of torsemide daily. Given increased leg edema, PCP increased her torsemide to 20 mg daily yesterday. On exam today patient still has 1+ pitting edema to bilateral lower legs. Continue same dose of diuretic. Patient is getting labs with primary care in the next few days to check for electrolytes and kidney function. Discussed in detail about signs and symptoms to watch for with heart failure. Emphasized on low-salt diet, fluid restriction between 1.5-2 L daily, daily weight monitoring, and compression socks/elevating legs. Recent chest CT showed mild coronary artery calcification. However given her new onset of LV systolic dysfunction, we will proceed with a coronary CTA to assess coronary artery disease. Given her new finding of paroxysmal AFib, patient will also undergo a Holter study to check for rate control and AFib recurrence. Continue warfarin which patient is taking for prior DVTs. No reported signs of bleeding. Continue carvedilol. Given her chronic left bundle branch block, discussed about possibility of this being the cause for her cardiomyopathy. However we came to a decision that we should proceed with the above testings and repeat echo in 3 months on the neurohormonal drug therapy. Emphasized the med compliance and benefits of neurohormonal drugs. (2) Paroxysmal A-fib: Code(s): I48.0 - Paroxysmal atrial fibrillation Category: Medical Plan: As above (3) Left bundle branch block: Code(s): I44.7 - Left bundle-branch block, unspecified Category: Medical Plan: As above. (4) Hospital discharge follow-up: Code(s): Z51.89 - Encounter for other specified aftercare Plan: As above. Advised on heart healthy diet, exercise, med compliance, and management of vascular risk factors. Follow up after testings. In the interim, patient will call the office with any concerns or change in symptoms. Advised to seek ER care in case of exertional chest pain not resolved with rest. This note was generated using voice recognition software. While every effort has been made to ensure accuracy and proper customer care representative, there may be occasional errors that could affect the content or meaning of the described symptoms. Orders: Orders ECG 7 day holter monitor Today I48.0 - Paroxysmal atrial fibrillation CA echo transthoracic complete 3 Months I42.9 - Cardiomyopathy, unspecified CT Cardiac Coronary Angio Today I42.9 - Cardiomyopathy, unspecified, R07.89 - Other chest pain AMB EKG-In Office Today I44.7 - Left bundle-branch block, unspecified Medications: New sacubitril-valsartan 49-51 mg (Entresto) 1 tab PO BID 60 tabs 3RF Coding Level of Care Code Est Pt Level 5 (24831) Complex visit Add On G2211 Diagnoses Cardiomyopathy I42.9 Paroxysmal A-fib I48.0 Left bundle branch block I44.7 Hospital discharge follow-up Z51.89 CPT Codes EKG - CPT: 16155-[id number], Complete ([id number]) Time Spent (min) 41 Comment Time spent in reviewing the chart, test results, assessment, counseling and documentation.
[2025-05-02 12:56] VITALS: BP 128/66; PULSE 70; BMI 55.2
== END 2025-05-02 14:02 | disposition home or self-care (01) ==
LOC: HO.HCS 12:51
PROVIDERS: PCP Internal Medicine
DX: I42.9 Cardiomyopathy, unspecified (principal); I48.0 Paroxysmal atrial fibrillation; I44.7 Left bundle-branch block, unspecified; Z51.89 Encounter for other specified aftercare
CPT/HCPCS: 93010; 99215; G2211

== ENCOUNTER → 2025-05-02 12:51 | Outpatient (BNVA) | payer MEDICARE, SELFPAY | PROVIDERS: PCP Internal Medicine | DX: Z51.89 Encounter for other specified aftercare (principal); I42.9 Cardiomyopathy, unspecified; I48.0 Paroxysmal atrial fibrillation; I44.7 Left bundle-branch block, unspecified | CPT/HCPCS: 93005; 99212 ==

== ENCOUNTER 2025-05-09 13:18 | Outpatient (AMB) | payer MEDICARE, SELFPAY ==
[2025-05-09 13:22] VITALS: BP 111/62; PULSE 73; O2SAT 98; BMI 54.9
--- NOTE | 2025-05-09 13:22 | MHC.OFFVIS ---
Vital Signs 05/09/25 13:22 Height 5 ft 2 in Weight 300 lb BMI 54.9 BP 111/62 Blood Pressure Location Rt brachial Position Sitting Pulse 73 Pulse Source Pulse Oximeter Pulse Oximetry (%) 98 Oxygen Delivery Method Room Air Intake Visit Reasons: [facility] ED F/u, Pneumonia Allergies doxycycline Allergy (Unknown, Verified 05/09/25 13:36) Unknown empagliflozin (From Jardiance) Allergy (Unknown, Verified 05/09/25 13:36) Unknown sitagliptin (From Januvia) Adverse Reaction (Intermediate, Verified 05/09/25 13:36) pancreatitis sulfamethoxazole (From Bactrim) Adverse Reaction (Intermediate, Verified 05/09/25 13:36) Unknown trimethoprim (From Bactrim) Adverse Reaction (Intermediate, Verified 05/09/25 13:36) Unknown cephalexin Adverse Reaction (Verified 05/09/25 13:36) high bp HPI HPI [facility] ED F/u, Pneumonia: Details: 69-year-old lady, active 40+ pack-year smoker, followed for underlying COPD and pulmonary nodules. Patient pulmonary function tests from March of 2024 show no fixed obstruction or significant bronchodilator response. She continues to require supplemental oxygen. No response to a trial of inhaled bronchodilators. Patient had recent CT chest that demonstrated mild left basilar scarring. Patient also has been recently hospitalized at [facility] for congestive heart failure/AFib. [facility] Surgical History History of carpal tunnel release Hx of knee surgery Family History Father Diabetes Mother Afib Sister Cardiomyopathy Social History Household Members: Spouse Years Smoked: 15 Second Hand Smoke Exposure: No Review of Systems Card Denies chest pain and Reports dyspnea on exertion Resp Denies cough, Reports dyspnea on exertion and Denies wheezing Aller/Immun Denies wheezing Physical Exam Vital Signs: Last Vital Signs Pulse 73 05/09/25 13:22 BP 111/62 05/09/25 13:22 Pulse Ox 98 05/09/25 13:22 Oxygen Delivery Method Room Air 05/09/25 13:22 BMI result Body Mass Index 54.9 Const General: no acute distress and alert Nutritional Appearance: obese Orientation/consciousness: Other orientation findings ( oriented) HEENT Head: Yes atraumatic Eyes General: appearance normal, both eyes and all related structures Sclerae: sclerae normal EOM: EOMs intact bilaterally Neck Neck: Yes supple Lymphatic: no lymphadenopathy noted Resp Effort & Inspection: normal respiratory effort and no use of accessory muscles Auscultation: clear to auscultation bilaterally Cardio Rate: regular rate Rhythm: regular rhythm Heart sounds: no gallops, no murmurs and no rubs Skin General skin exam: other ( warm) Extrem General: No clubbing, No cyanosis and No edema Assessment & Plan Assessment & Plan (1) Supplemental oxygen dependent: Code(s): Z99.81 - Dependence on supplemental oxygen Category: Medical Plan: Continue supplemental oxygen to maintain O2 saturation above 88%. (2) Restrictive ventilatory defect: Code(s): R94.2 - Abnormal results of pulmonary function studies Category: Medical Plan: Secondary to body habitus, expect to improve with further weight loss. (3) Abnormal CT scan, chest: Code(s): R93.89 - Abnormal findings on diagnostic imaging of other specified body structures Category: Medical Plan: Results of CT chest reviewed, mild left basilar scarring, will repeat CT chest in 12 months. Coding Level of Care Code Est Pt Level 4 (23344) Diagnoses Supplemental oxygen dependent Z99.81 Restrictive ventilatory defect R94.[address] scan, chest R93.89
--- OUTSIDE RECORDS SUMMARY | 2025-05-09 17:20 | XMS_ITS | Encounter Summary ---
Author Organization [facility] Address [address] [place] [address] Care Team Providers Care Transfer Table Operator Helper Name Role Phone Louise Schultz MD Primary Care Provider [phone] Encounter Details Date Type Department Care Team (Late Contact Info) Description 01/24/2025 Lab Requisition [facility] - Main Lab [address] [facility] [place] [address] Emilio Lennon PA [address] [facility] [address] [place] [address] Urinary tract infection, site not specified Social History Tobacco Use Types Packs/Day Years Used Date Smoking Tobacco: Former Smokeless Tobacco: Former Alcohol Use Standard Drinks/Week Comments Not Asked 0 (1 standard drink = 0.6 oz pur e alcohol) Comments Unknown Sex and Gender Information Value Date Recorded Sex Assigned at Female 04/24/2025 2:18 PM EST Legal Sex Female 10:27 PM EST Gender Identity Female 04/24/2025 2:18 PM EST Sexual Orientation Straight 04/24/2025 2: 18 PM EST documented as of this encounter Plan of Treatment Upcoming Encounters Date Type Department Care Team ([facility] Contact Info) Description 05/11/2025 10:30 AM EST Office Visit Vascular Surgery - [place] [address] [place] [address] Cherie Wray MD [address] [place] [address] 06/08/2025 1:00 PM EST Appointment [facility] [address] [place] [phone] documented as of this encounter Procedures Procedure Name Priority Date/Time Associated Diagnosis Comments CULTURE URINE Routine 01/24/2025 12:00 AM EDT Urinary tract infection, site not specified documented in this encounter Results * Culture urine (01/24/2025 12:00 AM EDT) Culture, Urine No growth 01/25/2025 1:34 PM EDT [facility] Urine Urine specimen obtained by clean catch procedure / Unknown 01/24/2025 01/24/2025 5:54 PM EDT [facility] MICROBIOLOGY - GE NERAL ORDERABLES Final Result [facility] [address] [place] [address], documented in this encounter Visit Diagnoses Diagnosis Urinary tract infection, site not specified documented in this encounter Additional Health Concerns Infection Onset Date Last Indicated Resolved Time Respiratory Rule-Out 04/24/2025 04/24/2025 025 6:12 AM EST COVID-19 Rule-Out 04/24/2025 04/24/2025 04/24/2025 6:12 AM EST Respiratory Rule-Out 04/28/2025 04/28/2025 025 5:35 AM EST COVID-19 Rule-Out 04/28/2025 04/28/2025 04/28/2025 5:35 AM EST documented as of this encounter Care Teams Transfer Table Operator Helper Relationship Specialty Start Date End Date Louise Schultz MD [address] [place] [id number] PCP - General Internal Medicine 04/03/25 documented as of this encounter
--- OUTSIDE RECORDS SUMMARY | 2025-05-09 17:20 | XMS_ITS | Clinical Summary ---
Author Organization [facility] Address [address] [place] [address] Phone Care Team Providers Care Personal Care Worker Name Role Phone Louise Schultz MD Primary Care Provider [phone] Allergies Active Allergy Reactions Criticality Noted Date [...] nightly 60 mL 2 01/06/20 25 Active sulfamethoxazole-t rimethoprim (BACTRIM DS) 800-160 mg per tablet Take 1 tablet by mouth 2 (two) times a day. 10/27/20 25 Active metFORMIN (GLUCOPHAGE) 500 MG immediate release tabletIndications: Type 2 diabetes mellitus with hyperglycemia, with long-term current use of insulin Take 1 tablet (500 mg total) by mouth daily with breakfast. 90 tablet 1 03/31/20 25 Active Active Problems Problem Noted Date Diagnosed Date group home current use of insulin 06/17/2024 Assessment & Plan (06/17/2024 9:36 AM EST): Will increase her lispro sliding scale by 2-4 units at each meal depending upon carbohydrate intake group home current use of oral hypoglycemic drug 06/17/2024 [...] for dinner while helping pack up her [id number]'s house. This is slowing down and when [...] her glucose levels. Up to date with [facility] Assessment & Plan (09/23/2022 10:38 AM EDT): [...] mellitus with hyperglycemia 07/24 Assessment & Plan (03/31/2025 11:26 AM EST): Control is poor based upon the patient's recall of her SMBG readings. No frequent or severe hypoglycemia. She knows she needs to be eating better but has a hard time doing it. She is going to try harder with her diet. Will maintain her insulin regimen. To call or message with any issues managing her glucose levels. Up to date with [facility]. Will be finding a new licensed social worker. Labs ordered Assessment & Plan (09/21/2024 1:36 PM EDT): [...] her glucose levels. Up to date with [facility]. Labs reviewed Assessment & Plan (06/17/2024 9:35 [...] her glucose levels. Up to date with [facility]. Labs ordered Assessment & Plan (07/29/2023 11:39 [...] her glucose levels. Up to date with [facility]. Assessment & Plan (05/11/2023 1:07 PM EST): [...] her glucose levels. Up to date with [facility]. Labs ordered today Assessment & Plan (01/22/2023 [...] 09/23/2022 Acquired hypothyroidism 08/14/2022 Assessment & Plan (03/31/2025 11:24 AM EST): Will check levels to determine if medication adjustments are needed Assessment & Plan (07/29/2023 11:39 AM EST): [...] Encounters Date Type Department Care Team Description 04/04/2025 Orders Only [facility] [address] [place] [address] Merlyn Dong Acquired hypothyroidism; Type 2 diabetes mellitus with hyperglycemia, with long-term current use of insulin 03/31/2025 10:00 AM EST Office Visit [facility] [address] [place] [address] Erin Allison PA-C Type 2 diabetes mellitus with hyperglycemia, with long-term current use of insulin (Primary Dx); Acquired hypothyroidism from Last 3 Months Family History Medical [...] Sign Reading Time Taken Comments Blood Pressure 122/74 03/31/2025 10:05 AM EST Pulse 66 03/31/2025 10:05 AM EST Temperature 36.6 C (97.8 F) 05/08/2023 10:09 AM EST Respiratory Rate 18 11/05/2022 9:43 AM EDT Oxygen Saturation 94% 03/31/2025 10:05 AM EST Inhaled Oxygen Concentration - - Weight 141.1 kg (311 lb) 03/31/2025 10:05 AM EST Height 158.8 cm (5' 2.52 ) 03/31/2025 10:[address] Body Mass Index 55.94 03/31/2025 10:05 AM EST Plan of Treatment Upcoming Encounters Date Type Department Care Team (Late st Contact Info) Description 07/05/2025 11:20 AM EST Office Visit [facility] [address] [place] [address] Erin Allison PA-C [address] [place] [address] [email or web address] 09/29/2025 10:20 AM EDT Office Visit [facility] [address] [place] [address] Erin Allison PA-C [address] [place] [address] 01/01/2026 11:00 AM EDT Office Visit [facility] [address] [place] [address] Ginny Duval MD [address] [place] [address] Health Maintenance Due Date Last Done Comments [...] 03/05/2023 09/03/2022 DIABETIC EYE EXAM 11/02/2024 11/03/2023 INFLUENZA VACCINE (#1) 2024 COVID-19 VACCINE (1 - season) 2025 BLOOD PRESSURE 09/28/2025 03/31/2025 CREATININE LEVEL 04/03/2026 04/03/2025, , 12/22/2023, Additional history exists POTASSIUM LEVEL 04/03/2026 04/03/2025, 11/24, 08/11/2023 TSH LEVEL 04/03/2026 04/03/2025, 07/24, 12/22/2023, Additional history exists HEPATITIS A VACCINES Aged Out No long [...] Procedure Name Priority Date/Time Associated Diagnosis Comments ALANINE AMINOTRANSFERASE (ALT) Routine 04/03/2025 10:39 AM EST Type 2 diabetes mellitus with hyperglycemia, with long-term current use of insulin ASPARTATE AMINOTRANSFERASE (AST) Routine 04/03/2025 10:39 AM EST Type 2 diabetes mellitus with hyperglycemia, with long-term current use of insulin BASIC METABOLIC PANEL (BMP) Routine 04/03/2025 10:39 AM EST Type 2 diabetes mellitus with hyperglycemia, with long-term current use of insulin TSH WITH REFLEX Routine 04/03/2025 10:39 AM EST Acquired hypothyroidism HEMOGLOBIN A1C Routine 04/03/2025 10:38 AM EST Type 2 diabetes mellitus with hyperglycemia, with long-term current use of insulin HM DIABETES EYE EXAM FOR RESULT ENTRY ONLY Routine 11/03/2023 OUTSIDE HEMOGLOBIN A1C Routine 09/03/2022 from Last 3 Months or Most Recently Relevant to Health Maintenance Results * Alanine Aminotransferase (ALT) (04/03/2025 10:39 AM EST) Blood (Blood) Erin Allison PA-C LAB BLOOD BKR VIPIN MICHAEL Final Result [facility] * Aspartate Aminotransferase (AST) (04/03/2025 10:39 AM EST) Blood (Blood) us Erin Maria Keegan PA-C LAB BLOOD BKR ORDE RABLES Final Result Performing Organization Address City/[facility]/ZIP Co de Phone Number [facility] * Basic Metabolic Panel (BMP) (04/03/2025 10:39 AM EST) Blood (Blood) Erin Gutierreziggy COHEN-C LAB BLOOD BKR ORDE ALEC Final Result Performing Organization Address City/[facility] Co de Phone Number [facility] * Thyroid Stimulating Hormone (TSH), with Reflex (04/03/2025 10:39 AM EST) Blood (Blood) Erin Maria COHEN-C LAB BLOOD BKR ORDE RABSILVIO Final Result Performing Organization Address [facility] Co de Phone Number [facility] * Hemoglobin A1c (04/03/2025 10:38 AM EST) Blood (Blood) Erin Maria COHEN-C LAB BLOOD BKR ORDE ALEC Final Result Performing Organization Address [facility] Co de Phone Number [facility] * DIABETES EYE EXAM FOR RESULT ENTRY ONLY (11/03/2023) EYE EXAM [facility] Historical Provider HEALTH MAINTENANCE Final Result * Outside HbA1c (09/03/2022) Hemoglobin A1c - External 8 % Historical Provider LAB BLOOD ORDERABLES Sofia l Result from Last 3 Months or Most Recently Relevant to Health Maintenance Insurance [facility] MEDICARE REPLACEMENT MEDICARE PART A & B MEDICARE REPLACEMENT MEDICARE PART A & B MEDICARE REPLACEMENT MEDICARE PART A & B MEDICARE REPLACEMENT MEDICARE PART A & B MEDICARE REPLACEMENT MEDICARE PART A & [place] [address] [place] [address] MEDICARE REPLACEMENT MEDICARE PART A & B Care Teams Personal Care Worker Relationship Specialty Start Date End Date Louise Schultz MD [address] [place] [address] [email or web address] PCP - General 07/24/22 Additional Source Comments The information contained in this document represents components of the legal health record. It is not the complete legal health record.[facility]
--- OUTSIDE RECORDS SUMMARY | 2025-05-09 17:20 | XMS_ITS | Encounter Summary ---
Author Organization [facility] Address [address] [place] [address] Care Team Providers Care Steel Fixer Name Role Phone Louise Schultz MD Primary Care Provider [phone] Encounter Details Date Type Department Care Team (Late Contact Info) Description 02/03/2025 Lab Requisition [facility] - Main Lab [address] [facility] [address] Emilio Lennon PA [address] [facility] [address] [place] [address] Urinary tract infection, site not [...] AM EST Office Visit Vascular Surgery - [place] [address] [place] [address] Cherie Wray MD [address] [place] [phone] 06/08/2025 1:00 PM EST Appointment [facility] at [address] [phone] documented as of this encounter Procedures Procedure Name Priority Date/Time Associated Diagnosis Comments NON-GYNECOLOGIC CYTOLOGY Routine 01/24/2025 12:00 AM EDT Urinary tract infection, site not specified documented in this encounter Results * Non-gynecologic cytology (01/24/2025 12:00 AM EDT) Final Diagnosis A. Urine, Voided, ([id number]): Negative for high grade urothelial carcinoma. Acute inflammatory cells are present. Results of [employer] fluorescence in situ hybridization (FISH) testing: CEP3: Normal CEP7: Normal CEP17: Normal LSI 9p21: Normal Interpretation: Normal profile Controls stained appropriately. Note: The results are intended as a screening device and should be interpreted in association with other clinical and pathological findings. 02/17/2025 5:55 PM EDT [facility] at 1755 EDT Specimen A Adequacy Satisfactory for evaluation 02/17/2025 5:55 PM EDT [facility] Clinical Information UTI N39.0 Urine Cytology/FISH (now) 02/17/2025 5:55 PM EDT [facility] Gross Description A. Urine, Voided, ([id number]): Received one ThinPrep slide for cytology and one ThinPrep slide for U[employer]ion FISH 02/17/2025 5:55 PM EDT [facility] Disclaimer Unless otherwise specified, all tissue is 10% NB formalin fixed and paraffin embedded. Technical pathology services provided by [facility] at [address], [place] [address] (CLIA #[id number]/Usha Chavez MD, Auto Mechanic Supervisor) 02/17/2025 5:55 PM EDT [facility] Urine Urine specimen from urethra / Unknown 01/24/2025 02/03/2025 11:46 AM EDT us Emilio [facility] CYTOLOGY ORDERABL ES Final Result [facility] [address] [place] [address], documented in this encounter Visit Diagnoses Diagnosis [...] documented as of this encounter Care Teams Steel Fixer Relationship Specialty Start Date End Date Louise Schultz MD [address] [place] [address] PCP - General Internal Medicine 04/03/25 documented as of this encounter
--- OUTSIDE RECORDS SUMMARY | 2025-05-09 17:20 | XMS_ITS | Clinical Summary ---
Author Organization [address] [facility] Address [address] [place] [address] Phone Care Team Providers Care Interventional Cardiologist Name Role Phone Louise Schultz MD Primary Care Provider [phone] Allergies Active Allergy Reactions Criticality Noted Date Comments Sulfamethoxazole-Trimethop rim 04/24/2025 Cephalexin Unknown 04/28/2025 Doxycycline 10/02/2016 Other Reaction(s): Rash/Dermatitis Empagliflozin 05/09/2020 Sitagliptin Other,Unknown 12/20/2021 Had pancreatis Medications pantoprazole (PROTONIX) 40 mg EC tablet Take 1 tablet by mouth daily. Take in a.m. on empty stomach, wait 30 minutes and then eat to activate medication 03/25/20 21 Active carvediloL (COREG) 3.125 mg tablet Take 1 tablet by mouth 2 times daily (with meals). 10/31/19 21 Active warfarin sodium (WARFARIN ORAL) Take 5 mg by mouth daily. Daily as directed. Coumadin managed by [facility]. Active blood sugar diagnostic (ONETOUCH ULTRA TEST [facility] [place] [place]) 05/24/20 19 Active insulin lispro (HumaLOG KwikPen Insulin) 100 unit/mL injection pen INJECT 4 12 UNITS PER SLIDING SCALE 3 TIMES A DAY BEFORE MEALS 08/07/19 20 Active insulin glargine (Lantus Solostar U-100 Insulin) 100 unit/mL (3 mL) injection pen 06/03/19 Active pen needle, diabetic 32 gauge x 5/32 needle TO INJECT INSULIN 4 TIMES DAILY 30 DAYS 07/16/19 Active metFORMIN (GLUCOPHAGE) 500 mg tablet Take 500 mg by mouth 2 Times Daily. 07/01/19 Active pregabalin (LYRICA) 300 mg capsule Take 300 mg by mouth 2 times daily. Active rosuvastatin (CRESTOR) 20 mg tablet Take 1 tablet (20 mg total) by mouth 1 (one) time each day. Active levothyroxine (SYNTHROID, LEVOTHROID) 25 mcg tablet Take 1 tablet (25 mcg total) by mouth 1 (one) time each day before breakfast. 04/28/20 Active ipratropium (ATROVENT) 0.02 % nebulizer solution Take 2.5 mL (0.5 mg total) by nebulization every 6 (six) hours for 10 days. 100 mL 04/27/20 Active guaiFENesin (MUCINEX) 600 mg 12 hr tablet Take 1 tablet (600 mg total) by mouth every 12 (twelve) hours. Do not crush, chew, or split. 60 each 04/27/20 Active budesonide (PULMICORT) 0.5 mg/2 mL nebulizer solution Take 2 mL (0.5 mg total) by nebulization 2 (two) times a day for 10 days. Rinse mouth with water after use to reduce aftertaste and incidence of candidiasis. Do not swallow. 40 mL 04/27/20 Active sacubitriL-va lsartan (Entresto) 49-51 mg per tablet Take 1 tablet by mouth 2 (two) times a day. 60 tablet 04/27/20 Active albuterol 2.5 mg /3 mL (0.083 %) nebulizer solution Take 3 mL (2.5 mg total) by nebulization every 4 (four) hours if needed for wheezing. 60 mL 04/27/20 Active torsemide (DEMADEX) 10 mg tablet Take 1 tablet (10 mg total) by mouth 1 (one) time each day. 30 each 04/27/20 Active dicyclomine (BENTYL) 10 mg capsule Take 2 Capsules by mouth 4 times daily (before meals and nightly). 11/12/19 025 Discontinued(S top Taking at Discharge) irbesartan (AVAPRO) 150 mg tablet Take 1 tablet (150 mg total) by mouth 1 (one) time each day. 06/14/19 025 Discontinued(T herapy completed) furosemide (LASIX) 20 mg tablet TAKE 2 TABLETS BY MOUTH IN THE MORNING & 1 TAB IN THE AFTERNOON DAILY 05/15/20 025 Discontinued(S top Taking at Discharge) CARVEDILOL ORAL Take 3.125 mg by mouth 2 times daily. Discontinued(D uplicate order) fexofenadine (JAY) 180 mg tablet Take 180 mg by mouth daily. Discontinued(S top Taking at Discharge) sucralfate (CARAFATE) 100 mg/mL suspension Take 10 mL by mouth 4 times daily. 03/06/20 025 Discontinued(S top Taking at Discharge) albuterol HFA (PROAIR HFA ; PROVENTIL HFA ; VENTOLIN HFA) 90 mcg/actuation inhaler 2 PUFFS INHALATION 4 TIMES A DAY NEEDED FOR WHEEZING/SHORTN ESS OF BREATH 01/03/20 025 Discontinued(S top Taking at Discharge) tiotropium (Spiriva Respimat) 2.5 mcg/actuation inhalation spray INHALE 2 PUFFS INTO THE LUNGS EVERY DAY. 08/04/19 20 025 Discontinued(S top Taking at Discharge) fluticasone furoate-vilan teroL (Breo Ellipta) 200-25 mcg/dose inhaler Inhale 1 puff by mouth 1 (one) time each day. 07/30/19 20 025 Discontinued(S top Taking at Discharge) baclofen (LIORESAL) 10 mg tablet Take 10 mg by mouth 3 times daily. 025 Discontinued(T herapy completed) albuterol 2.5 mg /3 mL (0.083 %) nebulizer solution Take 1 Vial by nebulization every 4 hours as needed. 025 Discontinued allopurinoL (ZYLOPRIM) 100 mg tablet Take 100 mg by mouth 2 times daily. 025 Discontinued(S top Taking at Discharge) amoxicillin (AMOXIL) 500 mg tablet Take 500 mg by mouth as needed. Prior to dental work 025 Discontinued(S top Taking at Discharge) loperamide HCl (LOPERAMIDE ORAL) Take by mouth as needed. 025 Discontinued(S top Taking at Discharge) valsartan (DIOVAN) 320 mg tablet Take 1 tablet (320 mg total) by mouth 1 (one) time each day. 025 Discontinued(S top Taking at Discharge) cefpodoxime (VANTIN) 200 mg tablet Take 1 tablet (200 mg total) by mouth 2 (two) times a day for 7 days. 14 each 04/27/20 25 025 Discontinued(S top Taking at Discharge) predniSONE (DELTASONE) 10 mg tablet Take 3 tablets (30 mg total) by mouth 1 (one) time each day for 3 days, THEN 2 tablets (20 mg total) 1 (one) time each day for 3 days, THEN 1 tablet (10 mg total) 1 (one) time each day for 3 days. 18 each 04/27/20 25 025 cefdinir (OMNICEF) 300 mg capsule Take 1 capsule (300 mg total) by mouth 2 (two) times a day for 7 days. 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 Encounters Date Type Department Care Team Description 04/28/2025 2:55 AM EST - 04/28/2025 9:01 AM EST Emergency [facility] Emergency [address] [place] [id number] Jennifer White MD Paroxysmal atrial fibrillation (CMS/HCC V24, CMS/HCC V28) (Primary Dx); Lightheadedness Discharge Disposition: Home or Self Care 04/24/2025 4:36 AM EST - 04/27/2025 3:04 PM EST Hospital Encounter [facility] Intermediate Care Unit [address] [place] [address] Jennifer White MD Bukalo, Nermina, MD Mohani, Priya, MD Acute on chronic hypoxic respiratory failure (CMS/HCC V24, CMS/HCC V28) (Primary Dx); Acute on chronic systolic congestive heart failure (CMS/HCC V24, CMS/HCC V28); Bilateral leg edema; Multifocal pneumonia Discharge Disposition: Home-Health Care [facility] 04/03/2025 9:13 PM EST - 04/03/2025 9:35 PM EST Emergency [facility] Emergency [address] [place] [address] Honorio Inman MD Encounter for medical screening examination (Primary Dx); Hyperglycemia; Renal failure, unspecified chronicity; Subtherapeutic international normalized ratio (INR); Leukocytosis, unspecified type; Thrombocytosis; Current use of roasterman anticoagulation Discharge Disposition: Home or Self Care from Last 3 Months Surgical History Surgery Date Site/Laterality Comments CARPAL TUNNEL RELEASE PROCEDURE: HISTORICAL CARPAL TUNNEL REL TOTAL KNEE ARTHROPLASTY Bilateral PROCEDURE: [place] ARTHRP KNE CONDYLE&PLATU MEDIAL&LAT COMPARTMENTS TUBAL LIGATION PROCEDURE: HISTORICAL TUBAL LIGATION DENTAL SURGERY PROCEDURE: [place] UNLISTED PROCEDURE DENTOALVEOLAR STRUCTURES COLONOSCOPY PROCEDURE: HISTORICAL COLONOSCOPY; COMMENT: Performed in 2006 COLONOSCOPY 02/22/2020 PROCEDURE: HISTORICAL COLONOSCOPY; COMMENT: tubular adenoma UPPER GASTROINTESTINAL ENDOSCOPY 02/22/2020 PROCEDURE: [place] UPPER GI ENDOSCOPY PERFORMED; COMMENT: normal CARDIAC CATHETERIZATION PROCEDURE: HISTORICAL CARDIAC CATH Medical History Medical History Date Comments Hypertension DX:Hypertension Hyperlipidemia DX:Hyperlipidemi a COPD (chronic obstructive pu lmonary disease) ([facility] [place]24, [facility] V28) DX:COPD (chronic o bstructive pulmonary disease) ([facility]) Arthritis DX:Arthritis IBS (irritable bowel syndrome) D X:IBS (irritable bowel syndrome) GERD (gastroesophageal reflu x disease) DX:GERD (gastroesophageal re flux disease) Gastroparesis DX:Gastroparesis Acute acalculous cholecystitis D X:Acute acalculous cholecystitis Acute pancreatitis DX:Acute panc reatitis Stroke (cerebrum) ([facility] V 24, [facility] V28) 2015 DX:Stroke (cerebrum) ([facility]) Bilateral leg edema DX:Bilateral leg edema Left bundle branch block DX:Left bundle branch block Type 2 diabetes mellitus wit h diabetic neuropathy ([facility] V24, [facility] V28) DX:Type 2 diabetes mellitus with diabetic neuropathy ([facility]) Diabetic neuropathy ([facility] V24, [facility] V28) DX:Diabetic neuropathy ([facility]) Gout 03/21/2019 DX:Gout History of bilateral knee replacement 03/21/2019 DX:History of bilateral knee replacement History of sepsis 03/21/2019 DX:History of sepsis; COMMENT: 12/08/2018 hospitalization in [place]. Cough DX:Cough Postnasal drip DX:Postnasal dri p [...] drink = 0.6 oz pur e alcohol) Housing Instability Answer Date Recorde d Are you worried that in the next 2 months you may not have stable housing? No 04/24/2025 Food Access & Nutrition Answer Date Rec orded Do you have access to a vari ety of food including fruits and vegetables? Yes 04/24/2025 Health Literacy Answer Date Recorded How often do you need to hav e someone help you when you read instructions, pamphlets, or other written material from your doctor or pharmacy? Never 04/24/2025 Caregiver: How often do you need to have someone help you when you read instructions, pamphlets, or other written material from your doctor or pharmacy? Not on file 04/24/2025 Financial Risk Answer Date Recorded How hard is it for you to pa y for the very basics like food, housing, medical care, and air conditioning / heating? Not very hard 04/24/2025 Transportation Answer Date Recorded Has the lack of transportati on kept you from meetings, work, or from getting things needed for daily living? No Has the lack of transportati on kept you from medical appointments or from getting medications? No 04/24/2025 Social Isolation Answer Date Recorded How often do you feel lonely or isolated from th ose around you? Never 04/24/2025 Food Risk Answer Date Recorded Within the past 12 months we worried whether our food would run out before we got money to buy more. Never true 04/24/2025 Within the past 12 months th e food we bought just didn't last and we didn't have money to get more. Never true 04/24/2025 Dependent Care Answer Date Recorded Do you need help finding or paying for care for your loved ones. For example, children's author or elderly care for an older adult? No 04/24/2025 Education Answer Date Recorded Do you think completing more education or training, like finishing a GED, going to college, or learning a trade, would be helpful for you? No 04/24/2025 Living Situation Answer Date Recorded What is your living situation? Unrecognized valu e 04/24/2025 Interpersonal Safety Answer Date Record ed Physical Abuse Unrecognized value 04/24/2025 Verbal Abuse Unrecognized value 04/24/2025 Comments No Sex and Gender Information Value Date Recorded Sex Assigned at Female 04/24/2025 2:18 PM EST Legal Sex Female 10:27 PM EST Gender Identity Female 04/24/2025 2:18 PM EST Sexual Orientation Straight 04/24/2025 2: 18 PM EST Last Filed Vital Signs Vital Sign Reading Time Taken Comments Blood Pressure 122/55 04/28/2025 6:09 AM EST Pulse 79 04/28/2025 6:09 AM EST Temperature 36.9 C (98.5 F) 04/28/2025 4:26 AM EST Respiratory Rate 14 04/28/2025 6:09 AM EST Oxygen Saturation 94% 04/28/2025 6:09 AM EST Inhaled Oxygen Concentration - - Weight 138 kg (305 lb) 04/28/2025 3:05 AM EST Height 157.5 cm (5' 2.01 ) 04/28/2025 3:05 AM ES T Body Mass Index 55.77 04/28/2025 3:05 AM EST Plan of Treatment Upcoming Encounters Date Type Department Care Team (Late st Contact Info) Description 05/11/2025 10:30 AM EST Office Visit [facility] [place] [address] [place] [address] Cherie Wray MD [address] [place] [phone] 06/08/2025 1:00 PM EST [facility]ointment [facility] [address] [phone] Health Maintenance Due Date Last Done Comments Breast Cancer Screening 1955 Diabetes: Annual Foot Exam 1965 Diabetes: Annual Retina Eye Exam 1965 DTaP,Tdap,and Td Vaccines (1 - Tdap) 1974 Pneumococcal Vaccine: 50+ Years (1 of 2 - PCV) 1974 Zoster Vaccines (1 of 2) 2005 Medicare Annual Wellness Visit 05/03/2022 Osteoporosis Screening (Bone Density Screening) 05/03/2022 Cholesterol Screening (Lipid Panel) 12/10/2023 12/09/2018 Diabetes: Annual Urine Albumin-Creatinine Ratio (uACR) 01/23/2024 01/22/2023 Depression Screening 05/25/2024 COVID-19 Vaccine ( season) 2025 05/01/2023, 03/19/2022, 08/30/2021, Additional history exists Influenza Vaccine (#1) 2025 4, 03/18/2023, 03/19/2022, Additional history exists Colorectal Cancer Screening: Colonoscopy 02/21/2025 02/22/2020 Diabetes: Blood Sugar Control Test (HGBA1C) 10/23/2025 04/24/2025 Social Influencers of Health Screening 04/24/2026 04/24/2025 Falls Risk Assessment 04/27/2026 04/27/2025 Diabetes: Annual GFR (Glomerular Filtration Rate) 04/28/2026 04/28/2025, 04/27/2025, 04/26/2025, Additional history exists Hypertension/CHF/CAD Annual BMP Blood Test 04/28/2026 04/28/2025, 04/27/2025, 04/26/2025, Additional history exists Hepatitis C Screening Completed 12/10/2018 RSV Immunization Adult Patients Completed 05/01/2023 HIB Vaccines Aged Out No longer eligi [...] to complete this topic RSV Immunization Patients Under 20 months Aged Out No longer eligible based on patient's age to complete this topic Varicella Vaccines Aged Out No longer eligible based on patient's age to complete this topic Procedures Procedure Name Priority Date/Time Associated Diagnosis Comments ECG ANNOTATED 05/01/2025 ECG ANNOTATED 05/01/2025 ECG 12-LEAD STAT 04/28/2025 8:31 AM EST JAMES URINE CULTURE TUBE STAT 04/28/20 5:57 AM EST URINALYSIS WITH REFLEX MICROSCOPIC AND CULTURE STAT 04/28/2025 5:57 AM EST URINALYSIS WITH REFLEX MICROSCOPIC AND CULTURE STAT 04/28/2025 5:57 AM EST CULTURE URINE STAT 04/28/2025 5:57 AM EST VENOUS BLOOD GAS STAT 04/28/2025 4:24 AM EST TROPONIN I HIGH SENSITIVITY Timed 04/28/2025 4:24 AM EST XR CHEST 1 VIEW STAT 04/28/2025 3:34 AM EST RESPIRATORY VIRUS PANEL MOLECULAR STUDY STAT 04/28/2025 3:31 AM EST ECG 12-LEAD STAT 04/28/2025 3:20 AM EST POCT GLUCOSE BLOOD Routine 04/28/2025 3: 15 AM EST MANUAL DIFFERENTIAL - SYSMEX WAM STAT 04/28/2025 3:12 AM EST PROTHROMBIN TIME WITH INR STAT 04/28/2025 3:12 AM EST CBC WITH AUTO DIFFERENTIAL STAT 04/28/2025 3:12 AM EST COMPREHENSIVE METABOLIC PANEL STAT 04/28/2025 3:12 AM EST TROPONIN I HIGH SENSITIVITY Timed 04/28/2025 3:12 AM EST MAGNESIUM STAT 04/28/2025 3:12 AM EST CBC AND DIFFERENTIAL STAT 04/28/2025 3:12 AM EST POCT GLUCOSE BLOOD Routine 04/27/2025 11 :22 AM EST POCT GLUCOSE BLOOD Routine 04/27/2025 7: 15 AM EST CBC WITH AUTO DIFFERENTIAL Routine 04/27/2025 5:14 AM EST PROTHROMBIN TIME WITH INR Routine 04/27/2025 5:14 AM EST MAGNESIUM Routine 04/27/2025 5:14 AM EST BASIC METABOLIC PANEL Routine 04/27/2025 5:14 AM EST CBC AND DIFFERENTIAL Routine 04/27/2025 5:14 AM EST POCT GLUCOSE BLOOD Routine 04/26/2025 8: 13 PM EST POCT GLUCOSE BLOOD Routine 04/26/2025 3: 30 PM EST POCT GLUCOSE BLOOD Routine 04/26/2025 11 :14 AM EST POCT GLUCOSE BLOOD Routine 04/26/2025 7: 31 AM EST CBC WITH AUTO DIFFERENTIAL Routine 04/26/2025 5:17 AM EST PROTHROMBIN TIME WITH INR Routine 04/26/2025 5:17 AM EST MAGNESIUM Routine 04/26/2025 5:17 AM EST BASIC METABOLIC PANEL Routine 04/26/2025 5:17 AM EST CBC AND DIFFERENTIAL Routine 04/26/2025 5:17 AM EST POCT GLUCOSE BLOOD Routine 04/25/2025 7: 38 PM EST POCT GLUCOSE BLOOD Routine 04/25/2025 4: 38 PM EST TRANSTHORACIC ECHOCARDIOGRAM (TTE) COMPLETE W/ CONTRAST Routine 04/25/2025 4:10 PM EST Acute on chronic systolic congestive heart failure (CMS/HCC V24, CMS/HCC V28) POCT GLUCOSE BLOOD Routine 04/25/2025 11 :40 AM EST POCT GLUCOSE BLOOD Routine 04/25/2025 7: 38 AM EST PROTHROMBIN TIME WITH INR Routine 04/25/2025 7:37 AM EST COMPLETE BLOOD COUNT Routine 04/25/2025 7:08 AM EST BASIC METABOLIC PANEL Routine 04/25/2025 7:08 AM EST POCT GLUCOSE BLOOD Routine 04/25/2025 4: 03 AM EST POCT GLUCOSE BLOOD Routine 04/25/2025 2: 23 AM EST POCT GLUCOSE BLOOD Routine 04/24/2025 9: 32 PM EST POCT GLUCOSE BLOOD Routine 04/24/2025 3: 56 PM EST ECG 12-LEAD Routine 04/24/2025 11:07 AM EST POCT GLUCOSE BLOOD Routine 04/24/2025 10 :25 AM EST XR CHEST 1 VIEW STAT 04/24/2025 7:08 AM EST ACTIVATED PARTIAL THROMBOPLASTIN TIME STAT 04/24/2025 7:03 AM EST PROTHROMBIN TIME WITH INR STAT 04/24/2025 7:03 AM EST ECG 12-LEAD STAT 04/24/2025 5:24 AM EST HEMOGLOBIN A1C Add-On 04/24/2025 5:14 AM EST CBC WITH AUTO DIFFERENTIAL STAT 04/24/2025 5:14 AM EST TROPONIN I HIGH SENSITIVITY STAT 04/24/2025 5:14 AM EST B-TYPE NATRIURETIC PEPTIDE STAT 04/24/2025 5:14 AM EST BASIC METABOLIC PANEL STAT 04/24/2025 5:14 AM EST CBC AND DIFFERENTIAL STAT 04/24/2025 5:14 AM EST RESPIRATORY VIRUS PANEL MOLECULAR STUDY STAT 04/24/2025 5:14 AM EST CBC WITH AUTO DIFFERENTIAL STAT 04/03/2025 4:42 PM EST PROTHROMBIN TIME WITH INR STAT 04/03/2025 4:42 PM EST ACTIVATED PARTIAL THROMBOPLASTIN TIME STAT 04/03/2025 4:42 PM EST COMPREHENSIVE METABOLIC PANEL STAT 04/03/2025 4:42 PM EST CBC AND DIFFERENTIAL STAT 04/03/2025 4:42 PM EST HM COLONOSCOPY Routine 02/22/2020 from Last 3 Months or Most Recently Relevant to Health Maintenance Results * ECG-Annotated (05/01/2025) Only the most recent of2 resultswithin the time period is included. us Provider Onbase MD ECG ORDERABLES Final Result * ECG 12 lead (04/28/2025 8:31 AM EST) Only the most recent of4 resultswithin the time period is included. Ventricular Rate ECG 77 BPM GEMUSE Atrial Rate 77 BPM GEMUSE P-R Interval 164 ms GEMUSE QRS Duration 152 ms GEMUSE Q-T Interval 442 ms GEMUSE QTc 500 ms GEMUSE P Wave Purcell 42 degrees GEMUSE R Purcell -60 degrees GEMUSE T Purcell 102 degrees GEMUSE ECG Interpretation Normal sinus rhythm Left axis deviation Left bundle branch block Abnormal ECG When compared with ECG of 28-APR-2025 03:20, (unconfirmed) Sinus rhythm has replaced Atrial fibrillation Confirmed by Carlos LOZANO JOHN ([id number]) on 04/29/2025 2:41:00 PM GEMUSE 04/28/2025 8:31 AM EST 04/29/2025 2:41 PM EST us Jennifer White MD ECG ORDERABLES Final Result MAURICEUSE * (ABNORMAL) Urinalysis with reflex microscopic and culture (04/28/2025 5:57 AM EST) Specific [place] Urine 1.021 1.003 - 1.030 LAB URINALYSIS - AUTOMATED METHOD 04/28/2025 6:55 AM [facility] pH, Urine 5.0 5.0 - 8.0 pH LAB URINALYSIS - AUTOMATED METHOD 04/28/2025 6:55 AM [facility] Leukocytes, Urine Negative Negative LAB URINALYSIS - AUTOMATED METHOD 04/28/2025 6:55 AM [facility] Nitrite, Urine Negative Negative LAB URINALYSIS - AUTOMATED METHOD 04/28/2025 6:55 AM [facility] Protein, Urine 100(A) <=Trace mg/dL LAB URINALYSIS - AUTOMATED METHOD 04/28/2025 6:55 AM [facility] Glucose, Urine Negative Negative mg/dL LAB URINALYSIS - AUTOMATED METHOD 04/28/2025 6:55 AM [facility] Ketones, Urine Negative Negative mg/dL LAB URINALYSIS - AUTOMATED METHOD 04/28/2025 6:55 AM [facility] Urobilinogen , Urine 0.2 0.2 - 1.0 mg/dL LAB URINALYSIS - AUTOMATED METHOD 04/28/2025 6:55 AM [facility] Bilirubin, Urine Negative Negative LAB URINALYSIS - AUTOMATED METHOD 04/28/2025 6:55 AM [facility] Blood, Urine Moderate(A) Negative LAB URINALYSIS - AUTOMATED METHOD 04/28/2025 6:55 AM [facility] RBC, Urine 50(H) 0 - 4 /HPF 04/28/2025 6:55 AM [facility] WBC, Urine 20(H) 0 - 4 /HPF 04/28/2025 6:55 AM [facility] Squamous Epithelial, Urine 60 0 - 60 /LPF 04/28/2025 6:55 AM [facility] Non-Squamous Epithelial, Urine 50 Transitional Epis /LPF 04/28/2025 6:55 AM [facility] Bacteria, Urine Few(A) Negative /HPF 04/28/2025 6:55 AM [facility] Urine Urine specimen obtained by clean catch procedure / Unknown Non-blood Collection / Unknown 04/28/2025 5:57 AM EST 04/28/2025 6:31 AM EST Jennifer White MD LAB URINE ORDERABLES Final Res ult Performing Organization Address City/[facility]/ZIP Co de Phone Number [facility] [address] [place] [address], [place] [phone] * James urine culture tube (04/28/2025 5:57 AM EST) Extra Tube Hold for add-ons. 04/28/2025 8:01 AM [facility] Comment:Auto resulted. Urine Urine specimen obtained by clean catch procedure / Unknown Non-blood Collection / Unknown 04/28/2025 5:57 AM EST 04/28/2025 6:31 AM EST Jennifer White MD LAB URINE ORDERABLES Final Res ult Performing Organization Address City/[facility]/ZIP Co de Phone Number [facility] [address] [place] [address], [place] [phone] * Culture urine (04/28/2025 5:57 AM EST) Culture, Urine <10,000 CFU/mL gram positive cocci, insignificant count, no further workup 04/29/2025 10:30 AM EST [facility] Urine Urine specimen obtained by clean catch procedure / Unknown Non-blood Collection / Unknown 04/28/2025 5:57 AM EST 04/28/2025 6:55 AM EST Jennifer White MD LAB MICROBIOLOGY - GENERAL ORD ERABLES Final Result Performing Organization Address City/[facility]/ZIP Co de Phone Number [facility] [address] [place] [address], [place] [phone] * Troponin I high sensitivity (04/28/2025 4:24 AM EST) Only the most recent of3 resultswithin the time period is included. [facility] High Sensitivity Troponin I 22 <=34 ng/L 04/28/2025 5:14 AM [facility] Blood Venous blood specimen / Unknown Venipuncture / Unknown 04/28/2025 4:24 AM EST 04/28/2025 4:31 AM EST us Jennifer White MD LAB BLOOD ORDERABLES Final Res ult Performing Organization Address City/[facility]/ZIP Co de Phone Number [facility] [address] [place] [address], [place] [phone] * (ABNORMAL) Venous blood gas (04/28/2025 4:24 AM EST) Pathologist [facility] pH, [place] 7.45(H) 7.32 - 7.42 pH 04/28/2025 4:36 AM [facility] pCO2, [place] 47 41 - 51 mmHg 04/28/2025 4:36 AM [facility] pO2, [place] 51(H) 25 - 40 mmHg 04/28/2025 4:36 AM [facility] HCO3, Venous 30.2(H) 22.0 - 26.0 mmol/L 04/28/2025 4:36 AM [facility] O2 Sat, [place] 82.7 % 04/28/2025 4:36 AM EST [facility] Base Excess, [place] 7.4(H) -2.0 - 2.0 mmol/L 04/28/2025 4:36 AM EST [facility] Blood Venous blood specimen / Unknown Venipuncture / Unknown 04/28/2025 4:24 AM EST 04/28/2025 4:30 AM EST us Jennifer White MD LAB BLOOD ORDERABLES Final Res ult [facility] [address] [place] [address], * XR Chest 1 View (04/28/2025 3:34 AM EST) Only the most recent of2 resultswithin the time period is included. Anatomical Region Laterality Modality Body Radiographic Kaylyn ging 04/28/2025 8:29 AM EST Impressions 04/28/2025 8:32 AM EST No interval change. -------- FINAL REPORT -------- Dictated By: Maurisio Jara Dictated Date: 04/28/2025 08:29 ET Assigned Physician: Maurisio Jara Reviewed and Electronically Signed By: Maurisio Jara Signed Date: 04/28/2025 08:32 ET Workstation ID: [id number] Transcribed By: Self Edit Transcribed Date: 04/28/2025 08:29 ET Narrative 04/28/2025 8:32 AM EST PROCEDURE: AP chest radiograph. HISTORY: dyspnea. COMPARISON: 04/24/2025. FINDINGS: Atherosclerotic calcifications of the aorta. Stable moderate cardiomegaly. Patchy bibasilar opacities, which are nonspecific and possibly simply atelectasis. Pleural spaces and pulmonary vasculature within normal limits. Degenerative changes of the spine and shoulders. Procedure Note Maurisio Jara MD - 04/28/2025 PROCEDURE: AP chest radiograph. HISTORY: dyspnea. COMPARISON: 04/24/2025. FINDINGS: Atherosclerotic calcifications of the aorta. Stable moderatecardiomegaly. Patchy bibasilar opacities, which are nonspecific andpossibly simply atelectasis. Pleural spaces and pulmonary vasculaturewithin normal limits. Degenerative changes of the spine and shoulders. IMPRESSION: No interval change. -------- FINAL REPORT -------- Dictated By: Maurisio Jara Dictated Date: 04/28/2025 08:29 ET Assigned Physician: Maurisio Jara Reviewed and Electronically Signed By: Maurisio Jara Signed Date: 04/28/2025 08:32 ET Workstation ID: [id number] Transcribed By: Self Edit Transcribed Date: 04/28/2025 08:29 ET Jennifer White MD IM XR PROCEDURES Final Result * Respiratory virus panel molecular study (04/28/2025 3:31 AM EST) Only the most recent of2 resultswithin the time period is included. Adenovirus Detection by PCR Not Detected Not Detected LAB MICROBIOLOGY METHOD 04/28/2025 5:35 AM [facility] Influenza A PCR Not Detected Not Detected LAB MICROBIOLOGY METHOD 04/28/2025 5:35 AM [facility] Influenza B PCR Not Detected Not Detected LAB MICROBIOLOGY METHOD 04/28/2025 5:35 AM [facility] Coronavirus 229E Not Detected Not Detected LAB MICROBIOLOGY METHOD 04/28/2025 5:35 AM [facility] Coronavirus HKU1 Not Detected Not Detected LAB MICROBIOLOGY METHOD 04/28/2025 5:35 AM [facility] Coronavirus OC43 Not Detected Not Detected LAB MICROBIOLOGY METHOD 04/28/2025 5:35 AM [facility] Coronavirus NL63 Not Detected Not Detected LAB MICROBIOLOGY METHOD 04/28/2025 5:35 AM [facility] Parainfluenza Virus 1 Not Detected Not Detected LAB MICROBIOLOGY METHOD 04/28/2025 5:35 AM [facility] Parainfluenza Virus 2 Not Detected Not Detected LAB MICROBIOLOGY METHOD 04/28/2025 5:35 AM [facility] Parainfluenza Virus 3 Not Detected Not Detected LAB MICROBIOLOGY METHOD 04/28/2025 5:35 AM [facility] Parainfluenza Virus 4 Not Detected Not Detected LAB MICROBIOLOGY METHOD 04/28/2025 5:35 AM [facility] RSV PCR Not Detected Not Detected LAB MICROBIOLOGY METHOD 04/28/2025 5:35 AM [facility] Human Metapneumovirus A and B Not Detected Not Detected LAB MICROBIOLOGY METHOD 04/28/2025 5:35 AM [facility] Rhinovirus/Entero virus Not Detected Not Detected LAB MICROBIOLOGY METHOD 04/28/2025 5:35 AM [facility] Bordetella pertussis Not Detected Not Detected LAB MICROBIOLOGY METHOD 04/28/2025 5:35 AM [facility] Bordetella parapertussis Not Detected Not Detected LAB MICROBIOLOGY METHOD 04/28/2025 5:35 AM [facility] Mycoplasma pneumo by PCR Not Detected Not Detected LAB MICROBIOLOGY METHOD 04/28/2025 5:35 AM [facility] Chlamydia pneumoniae Not Detected Not Detected LAB MICROBIOLOGY METHOD 04/28/2025 5:35 AM [facility] SARS COV-2 Not Detected Not Detected LAB MICROBIOLOGY METHOD 04/28/2025 5:35 AM [facility] Swab Both anterior nares / Unknown Non-blood Collection / Unknown 04/28/2025 3:31 AM EST 04/28/2025 4:33 AM EST [facility] - 04/28/2025 5:35 AM EST Testing was performed using the [employer] Respiratory Pathogen PCR Assay. All results must be correlated with the clinical findings. Results should not be used as the sole basis for diagnosis. False Negative results may occur from the presence of sequence variants in the region targeted by the assay or the presence of inhibitors. Results may be affected by concurrent antiviral/antimicrobial therapy or levels of organisms that are below the limit of detection. Jennifer White MD LAB MICROBIOLOGY - GENERAL ORD ERABLES Final Result Performing Organization Address City/[facility]/ZIP Co de Phone Number [facility] [address] [place] [address], [place] [phone] * (ABNORMAL) POCT Glucose, blood (04/28/2025 3:15 AM EST) Only the most recent of16 resultswithin the time period is included. [facility] Glucose POCT 252(H) 70 - 100 mg/dL 04/28/2025 3:16 AM EST [facility] Blood Capillary blood specimen / Unknown 04/28/2025 3:15 AM EST 04/28/2025 3:17 AM EST Jennifer White MD LAB POINT OF CARE TE ST DOCKED DEVICE UNSOLICITED RESULTS Final Result Performing Organization Address [facility]/ZIP Co de Phone Number [facility] [address] [place] [address], [place] [phone] * (ABNORMAL) Manual differential (04/28/2025 3:12 AM EST) [facility] Neutrophils % 80.0 % LAB HEMETOLOGY METHOD 04/28/2025 4:12 AM [facility] Lymphocytes % 12.0 % LAB HEMETOLOGY METHOD 04/28/2025 4:12 AM [facility] Monocytes % 4.0 % LAB HEMETOLOGY METHOD 04/28/2025 4:12 AM [facility] Eosinophils % 4.0 % LAB HEMETOLOGY METHOD 04/28/2025 4:12 AM [facility] Basophils % 0.0 % LAB HEMETOLOGY METHOD 04/28/2025 4:12 AM EST [facility] Neutrophils Absolute Manual 15.84(H) 1.50 - 7.00 K/mcL LAB HEMETOLOGY METHOD 04/28/2025 4:12 AM [facility] Lymphocytes Absolute 2.38 1.00 - 5.00 K/mcL LAB HEMETOLOGY METHOD 04/28/2025 4:12 AM EST [facility] Monocytes Absolute Manual 0.79 0.20 - 1.00 K/mcL LAB HEMETOLOGY METHOD 04/28/2025 4:12 AM [facility] Eosinophils Absolute Manual 0.79(H) 0.00 - 0.50 K/mcL LAB HEMETOLOGY METHOD 04/28/2025 4:12 AM [facility] Basophils Absolute Manual 0.00 0.00 - 0.20 K/mcL LAB HEMETOLOGY METHOD 04/28/2025 4:12 AM [facility] Rbc Morphology Consistent with indices Consistent with indices, Normal for LAB HEMETOLOGY METHOD 04/28/2025 4:12 AM [facility] Platelet Morphology - WAM Normal Normal LAB HEMETOLOGY METHOD 04/28/2025 4:12 AM [facility] Polychromasia Present Present(A) (none) LAB HEMETOLOGY METHOD 04/28/2025 4:12 AM [facility] Blood Venous blood specimen / Unknown Venipuncture / Unknown 04/28/2025 3:12 AM EST 04/28/2025 3:19 AM EST us Jennifer White MD LAB BLOOD ORDERABLES Final Res ult [facility] [address] [place] [address], * (ABNORMAL) CBC auto differential (04/28/2025 3:12 AM EST) Only the most recent of5 resultswithin the time period is included. WBC 19.8(H) 4.8 - 10.8 K/mcL LAB HEMETOLOGY METHOD 04/28/2025 4:12 AM [facility] RBC 5.70(H) 3.80 - 4.80 M/mcL LAB HEMETOLOGY METHOD 04/28/2025 4:12 AM [facility] Hemoglobin 14.1 11.5 - 16.0 g/dL LAB HEMETOLOGY METHOD 04/28/2025 4:12 AM [facility] Hematocrit 46.2 35.0 - 47.0 % LAB HEMETOLOGY METHOD 04/28/2025 4:12 AM [facility] MCV 81.1 79.0 - 98.0 FL LAB HEMETOLOGY METHOD 04/28/2025 4:12 AM [facility] MCH 24.7(L) 27.0 - 32.0 pcg LAB HEMETOLOGY METHOD 04/28/2025 4:12 AM [facility] MCHC 30.5(L) 32.0 - 37.0 g/dL LAB HEMETOLOGY METHOD 04/28/2025 4:12 AM [facility] RDW 22.1(H) 11.0 - 15.0 % LAB HEMETOLOGY METHOD 04/28/2025 4:12 AM [facility] Platelets 665(H) 130 - 400 K/mcL LAB HEMETOLOGY METHOD 04/28/2025 4:12 AM [facility] MPV 11.6(H) 7.0 - 11.0 FL LAB HEMETOLOGY METHOD 04/28/2025 4:12 AM [facility] NRBC 0.4 <1.0 % LAB HEMETOLOGY METHOD 04/28/2025 4:12 AM [facility] NRBC Absolute 0.07 <0.10 K/mcL LAB HEMETOLOGY METHOD 04/28/2025 4:12 AM EST [facility] Blood Venous blood specimen / Unknown Venipuncture / Unknown 04/28/2025 3:12 AM EST 04/28/2025 3:19 AM EST Narrative [facility] - 04/28/2025 4:12 AM EST [id number] Jennifer White MD LAB BLOOD ORDERABLES Final Res ult Performing Organization Address [facility] Co de Phone Number [facility] [address] [place] [address], [place] [phone] * (ABNORMAL) Protime-INR (04/28/2025 3:12 AM EST) Only the most recent of6 resultswithin the time period is included. Protime 20.1(H) 10.6 - 13.9 sec LAB COAGULATION METHOD 04/28/2025 3:29 AM EST [facility] INR 1.6 LAB COAGULATION METHOD 04/28/2025 3:29 AM EST [facility] Blood Venous blood specimen / Unknown Venipuncture / Unknown 04/28/2025 3:12 AM EST 04/28/2025 3:19 AM EST Jennifer White MD LAB BLOOD ORDERABLES Final Res ult Performing Organization Address City/[facility]/ZIP Co de Phone Number [facility] [address] [place] [address], [place] [phone] * Magnesium (04/28/2025 3:12 AM EST) Only the most recent of3 resultswithin the time period is included. Magnesium 2.0 1.9 - 2.6 mg/dL 04/28/2025 3:47 AM EST [facility] Blood Venous blood specimen / Unknown Venipuncture / Unknown 04/28/2025 3:12 AM EST 04/28/2025 3:19 AM EST us Jennifer White MD LAB BLOOD ORDERABLES Final Res ult [facility] [address] [place] [address], [place] [phone] * (ABNORMAL) Comprehensive metabolic panel (04/28/2025 3:12 AM EST) Only the most recent of2 resultswithin the time period is included. Sodium 140 133 - 145 mmol/L 04/28/2025 3:49 AM [facility] Potassium 4.0 3.5 - 5.5 mmol/L 04/28/2025 3:49 AM [facility] Chloride 101 96 - 110 mmol/L 04/28/2025 3:49 AM [facility] CO2 29 21 - 32 mmol/L 04/28/2025 3:49 AM [facility] Anion Gap 10 3 - 11 04/28/2025 3:49 AM [facility] Glucose 228(H) 70 - 100 mg/dL 04/28/2025 3:49 AM [facility] BUN 36(H) 5 - 25 mg/dL 04/28/2025 3:49 AM [facility] Creatinine 1.21(H) 0.50 - 1.10 mg/dL 04/28/2025 3:49 AM [facility] eGFR 49(L) >=60 mL/min/1. 73m2 04/28/2025 3:49 AM [facility] Comment:Calculation based on the Chronic Kidney Disease Epidemiology Collaboration (CKD-EPI) equation refit without adjustment for race. BUN/Creatinine Ratio 29.8 04/28/2025 3:49 AM [facility] Calcium 8.3(L) 8.5 - 10.5 mg/dL 04/28/2025 3:49 AM [facility] AST (SGOT) 28 10 - 42 unit/L 04/28/2025 3:49 AM [facility] ALT (SGPT) 22 10 - 60 unit/L 04/28/2025 3:49 AM [facility] Alkaline Phosphatase 93 42 - 121 unit/L 04/28/2025 3:49 AM [facility] Total Protein 5.9(L) 6.0 - 8.0 g/dL 04/28/2025 3:49 AM [facility] Albumin 3.8 3.2 - 5.0 g/dL 04/28/2025 3:49 AM [facility] Total Bilirubin 0.5 0.0 - 1.4 mg/dL 04/28/2025 3:49 AM [facility] Blood Venous blood specimen / Unknown Venipuncture / Unknown 04/28/2025 3:12 AM EST 04/28/2025 3:19 AM EST us Jennifer White MD LAB BLOOD ORDERABLES Final Res ult [facility] [address] [place] [address], * (ABNORMAL) Basic metabolic panel (04/27/2025 5:14 AM EST) Only the most recent of4 resultswithin the time period is included. Sodium 142 133 - 145 mmol/L 04/27/2025 7:14 AM [facility] Potassium 4.2 3.5 - 5.5 mmol/L 04/27/2025 7:14 AM [facility] Chloride 96 96 - 110 mmol/L 04/27/2025 7:14 AM [facility] CO2 36(H) 21 - 32 mmol/L 04/27/2025 7:14 AM [facility] Anion Gap 10 3 - 11 04/27/2025 7:14 AM [facility] Glucose 158(H) 70 - 100 mg/dL 04/27/2025 7:14 AM [facility] BUN 35(H) 5 - 25 mg/dL 04/27/2025 7:14 AM [facility] Creatinine 1.38(H) 0.50 - 1.10 mg/dL 04/27/2025 7:14 AM [facility] eGFR 42(L) >=60 mL/min/1. 73m2 04/27/2025 7:14 AM [facility] Comment:Calculation based on the Chronic Kidney Disease Epidemiology Collaboration (CKD-EPI) equation refit without adjustment for race. BUN/Creatinine Ratio 25.4 04/27/2025 7:14 AM [facility] Calcium 9.4 8.5 - 10.5 mg/dL 04/27/2025 7:14 AM [facility] Blood Venous blood specimen / Unknown Venipuncture / Unknown 04/27/2025 5:14 AM EST 04/27/2025 6:23 AM EST us Tiny Campos BILINGUAL RECEPTIONIST LAB BLOOD ORDERABLES Final Resul t [facility] [address] [place] [address], * (ABNORMAL) TRANSTHORACIC ECHOCARDIOGRAM (TTE) COMPLETE W/ CONTRAST (04/25/2025 4:10 PM EST) LV EDV (A2C) 183 mL CV PACS LV EDV (A4C) 166 mL CV PACS LV Diastolic Volume (BP) 177(A) 46 - 106 mL CV PACS LV ESV (A2C) 98 mL CV PACS LV ESV (A4C) 91 mL CV PACS LV Systolic Volume (BP) 97(A) 14 - 42 mL CV PACS IVSD 1.3(A) 0.6 - 0.9 cm CV PACS LVIDD 5.8(A) 3.8 - 5.2 cm CV PACS LVIDS 4.5(A) 2.2 - 3.5 cm CV PACS LVOT Diameter 1.9 cm CV PACS LVOT Mean Song 0.8 m/s CV PACS LVOT Mean Grad 3 mmHg CV PACS LVOT Peak VTI 29.3 cm CV PACS LVOT Peak Song 1.3 m/s CV PACS LVOT Peak Gradient 7 mmHg CV PACS LVPWD 1.3(A) 0.6 - 0.9 cm CV PACS MV E' Tissue Velocity Lateral 6 cm/s CV PACS MV E' Tissue Velocity Septal 6 cm/s CV PACS Ejection Fraction (A2C) 47 % CV PACS Ejection Fraction (A4C) 45 % CV PACS Ejection Fraction (BP) 45 % CV PACS LVOT Area 2.8 cm2 CV PACS LVOT Stroke Volume 83 mL CV PACS Left Atrium Minor Purcell 5.7 cm CV PACS Left Atrium Major Purcell 6.0 cm CV PACS LA Area Sys (A2C) 20 cm2 CV PACS LA Area Sys (A4C) 20 cm2 CV PACS LA Volume (BP) 54 mL CV PACS RA Area 15.1 cm2 CV PACS RA 2D Volume 34 mL CV PACS AV Mean Gradient 8 mmHg CV PACS Ao VTI 38.7 cm CV PACS AV Peak Song 1.9 m/s CV PACS AV Peak Gradient 15 mmHg CV PACS AV Area Continuity Equation 2.1 cm2 CV PACS AV Area Peak Velocity 1.9 cm2 CV PACS Aortic Arch 3.2 cm CV PACS Ascending Aorta 3.7 cm CV PACS Aortic Sinus Valsalva 3.4 cm CV PACS IVC Proximal 1.9 cm CV PACS MR PISA Nyquist Song 39 cm/s CV PACS PISA MR Radius 0.50 cm CV PACS MV Mean Gradient 3 mmHg CV PACS MR VTI 189.0 cm CV PACS MV VTI 45.2 cm CV PACS MR PISA Max Velocity 5.6 m/s CV PACS MR Peak Gradient 124 mmHg CV PACS Mitral Valve Max Velocity 1.3 m/s CV PACS MV Peak Gradient 7 mmHg CV PACS MV Deceleration [place] 4.0 m/s2 CV PACS E Wave Deceleration Time 282(A) 119 - 242 ms CV PACS MV PHT 83 ms CV PACS MV Peak A Song 1.36 m/s CV PACS MV Peak E Song 1.13 m/s CV PACS PISA MR EROA 0.11 cm2 CV PACS MV Area PHT 2.7 cm2 CV PACS MV Area Continuity Equation 1.8 cm2 CV PACS PISA Regurgitant Volume 21 mL CV PACS PV Acceleration Time 74 ms CV PACS PV Acceleration Time 74 ms CV PACS RV Diastolic Basal Dimension 3.6 2.5 - 4.1 cm CV PACS RV S' 14 cm/s CV PACS TAPSE 18 mm CV PACS TR Peak Velocity 2.01 m/s CV PACS TR Peak Gradient 16 mmHg CV PACS LV ESV Index (A4C) 39 mL/m2 CV PACS LV EDV Index (A4C) 72 mL/m2 CV PACS E/E' Ratio Septal 19 CV PACS E/E' Ratio Averaged 19 CV PACS LVOT Stroke Index 36 mL/m2 CV PACS Relative Wall Thickness ratio 0.45 CV PACS LVOT:AV VTI Index 0.76 CV PACS FS 22 % CV PACS LV Mass 2D 331 g CV PACS Ascending Aorta Index 1.59 cm/m2 CV PACS MV VTI:LVOT VTI ratio 1.5 CV PACS LVOT flow 227 mL/s CV PACS RA 2D Volume Index 15 mL/m2 CV PACS LUH Index (VTI) 0.92 cm2/m2 CV PACS LUH Index (Pk Song) 0.82 cm2/m2 CV PACS LVIDD Index 2.50 cm/m2 CV PACS LVIDS Index 1.94 cm/m2 CV PACS AV Velocity Ratio 0.68 CV PACS E/A Ratio 0.8 CV PACS E/E' Ratio Lateral 19 CV PACS LV Systolic Volume Index (BP) 42 mL/m2 CV PACS LV Diastolic Volume Index (BP) 76 mL/m2 CV PACS LA Volume Index (BP) 23 mL/m2 CV PACS LV Mass Index 2D 143 g/m2 CV PACS LV EDV Index (A2C) 79 mL/m2 CV PACS LV ESV Index (A2C) 42 mL/m2 CV PACS BSA 2.5 m2 CV PACS Right Ventricular Peak Systolic Pressure 19 mmHg CV PACS Est. RA Pressure 3 mmHg CV PACS Anatomical Region Laterality Modality Ultrasound Narrative 04/25/2025 4:34 PM EST Technically limited study in spite of Definity echo contrast. There is mild to moderate concentric LVH with wall thicknesses of about 13 mm. I would say systolic function is low normal or slightly below normal with an EF of 45 to 50%. No obvious segmental wall motion abnormalities are noted. Septal contraction abnormality due to a left bundle branch block. Right ventricular size and function appears to be normal. Both atria appear to be normal in size. No significant valvular abnormalities were noted. But image quality was suboptimal. There was mild mitral regurgitation. On an echo from April 13, 2019 there was mild mitral regurgitation. The septal dyssynchrony was also noted and global function looks similar or even a little bit worse at that time. Left Ventricle Left ventricle was not well visualized. Left ventricle cavity is mildly dilated. There is moderate concentric hypertrophy. 13 to 14 mm. Systolic function is mildly decreased with an ejection fraction of 45-50%. Mild global LV hypokinesis is present. Abnormal septal motion. Likely due to the left bundle branch block. There is Grade I (mild) diastolic dysfunction. Right Ventricle Right ventricle cavity appears normal. Systolic function is normal. Left Atrium Left atrium cavity size is normal. Right Atrium Right atrium cavity is normal. IVC/SVC RA pressures is estimated to be 3 mmHg (IVC diameter <21 mm and decreases >50% during inspiration). Mitral Valve Mitral valve structure is normal. There is annular calcification. There is mild regurgitation. There is no evidence of mitral valve stenosis. Tricuspid Valve Tricuspid valve structure is normal. There is trace regurgitation. There is no evidence of tricuspid valve stenosis. The right ventricular systolic pressure is normal. Aortic Valve The aortic valve morphology was not well visualized. Number of aortic valve cusps cannot be determined. There is no regurgitation or stenosis. Pulmonic Valve The pulmonic valve was not well visualized. There is no regurgitation or stenosis. Ascending Aorta Normal aortic sinus. Ascending aorta 3.4 cm. Aortic arch 3.2 cm. Pericardium There is an anterior fat pad. There is no pericardial effusion. Study Details Overall the study quality was technically difficult. Definity contrast was given to enhance imaging. Study was difficult due to: patient body habitus. Tiny Campos NP CV ECHO PROCEDURES Final Result * (ABNORMAL) Complete blood count (04/25/2025 7:08 AM EST) WBC 18.3(H) 4.8 - 10.8 K/mcL LAB HEMETOLOGY METHOD 04/25/2025 8:05 AM [facility] RBC 4.70 3.80 - 4.80 M/mcL LAB HEMETOLOGY METHOD 04/25/2025 8:05 AM [facility] Hemoglobin 11.7 11.5 - 16.0 g/dL LAB HEMETOLOGY METHOD 04/25/2025 8:05 AM [facility] Hematocrit 38.9 35.0 - 47.0 % LAB HEMETOLOGY METHOD 04/25/2025 8:05 AM [facility] MCV 82.2 79.0 - 98.0 FL LAB HEMETOLOGY METHOD 04/25/2025 8:05 AM [facility] MCH 24.7(L) 27.0 - 32.0 pcg LAB HEMETOLOGY METHOD 04/25/2025 8:05 AM [facility] MCHC 30.1(L) 32.0 - 37.0 g/dL LAB HEMETOLOGY METHOD 04/25/2025 8:05 AM [facility] RDW 21.8(H) 11.0 - 15.0 % LAB HEMETOLOGY METHOD 04/25/2025 8:05 AM [facility] Platelets 511(H) 130 - 400 K/mcL LAB HEMETOLOGY METHOD 04/25/2025 8:05 AM [facility] MPV 11.8(H) 7.0 - 11.0 FL LAB HEMETOLOGY METHOD 04/25/2025 8:05 AM EST [facility] NRBC 0.2 <1.0 % LAB HEMETOLOGY METHOD 04/25/2025 8:05 AM EST [facility] NRBC Absolute 0.04 <0.10 K/mcL LAB HEMETOLOGY METHOD 04/25/2025 8:05 AM EST [facility] Blood Venous blood specimen / Unknown Venipuncture / Unknown 04/25/2025 7:08 AM EST 04/25/2025 7:44 AM EST us Bill Duncan MD LAB BLOOD ORDERABLES Final Res ult Performing Organization Address [facility]/ZIP Co de Phone Number [facility] [address] [place] [address], [place] [phone] * (ABNORMAL) APTT (04/24/2025 7:03 AM EST) Only the most recent of2 resultswithin the time period is included. aPTT 47.2(H) 24.1 - 39.3 sec LAB COAGULATION METHOD 04/24/2025 7:34 AM EST [facility] Blood Venous blood specimen / Unknown Venipuncture / Unknown 04/24/2025 7:03 AM EST 04/24/2025 7:19 AM EST us Jennifer White MD LAB BLOOD ORDERABLES Final Res ult Performing Organization Address City/[facility]/ZIP Co de Phone Number [facility] [address] [place] [address], [place] [phone] * (ABNORMAL) B-type natriuretic peptide (04/24/2025 5:14 AM EST) BNP 165(H) <=100 pcg/mL 04/24/2025 5:42 AM EST [facility] Blood Venous blood specimen / Unknown Venipuncture / Unknown 04/24/2025 5:14 AM EST 04/24/2025 5:20 AM EST Narrative [facility] - 04/24/2025 5:42 AM EST Over the counter supplements containing high doses of biotin may interfere with this assay. If interference is suspected, patients shoud be retested after refraining from biotin supplements for 72 hours. Jennifer White MD LAB BLOOD ORDERABLES Final Res ult Performing Organization Address [facility] Co de Phone Number [facility] [address] [place] [address], [place] [phone] * (ABNORMAL) Hemoglobin A1c (04/24/2025 5:14 AM EST) Hemoglobin A1C 8.8(H) <6.5 % LAB CHEMISTRY METHOD 04/24/2025 2:04 PM EST [facility] Mean Bld Glu Estim. 206 mg/dL LAB CHEMISTRY METHOD 04/24/2025 2:04 PM EST [facility] Blood Venous blood specimen / Unknown Venipuncture / Unknown 04/24/2025 5:14 AM EST 04/24/2025 5:20 AM EST Bill Duncan MD LAB BLOOD ORDERABLES Final Res ult Performing Organization Address [facility] Co de Phone Number [facility] [address] [place] [address], * Hm Colonoscopy (02/22/2020) Colonoscopy no interpretation , abstracted Anatomical Region Laterality Modality Other Historical Provider HEALTH MAINTENANCE Final Result from Last 3 Months or Most Recently Relevant to Health Maintenance Insurance * Guarantor: Lori Jasmine Account Type Relation to Patient Date of Phone Billing Address Personal/Family Self [address] [place] [phone] [employer] MEDICARE Advance Directives * Full Code - Default (Latest Code Status on File) Date Activated Date Inactivated Comments 04/24/2025 8:48 AM 04/27/2025 5:14 PM This is orde r is used when code status has not been discussed with the patient, or code status is otherwise unknown/unconfirmed To update the patient's code status, place a code status order. Do not modify or discontinue any currently active code status orders. Healthcare Agents on File Name Relationship Healthcare Agent Relationspa p Communication Orlando Jasmine Spouse Health Care Agent Care Teams Interventional Cardiologist Relationship Specialty Start Date End Date Louise Schultz MD [address] [place] [id number] PCP - General Internal Medicine 04/03/25
--- OUTSIDE RECORDS SUMMARY | 2025-05-09 17:20 | XMS_ITS | Clinical Summary ---
Author Organization [facility] Address [address] [place] [address] Care Team Providers Care Environmental Field Technician Name Role Phone Louise Schultz Primary Care Provider [phone] Allergies Active Allergy Reactions Criticality Noted Date [...] Tdap) 1977 Mammogram 1995 Osteoporosis Screening 2005 RSV Vaccine (60+ years old and patients) (1 - Risk 50-74 years 1-dose series) 2005 Zoster Vaccines (1 of 2) 2005 CT Lung Cancer Screening (Baseline) 06/13/2023 06/13/2022, 12/08/2018 Alcohol/Substance Use Screening 05/25/2024 Depression Screening and Follow-Up 05/25/2024 Fall Risk Screening 05/25/2024 Health Care Proxy Review 05/25/2024 Social Drivers of Health Annual Screening 05/25/2024 Influenza Vaccine (#1) 2024 , 02/18/2019, 02/22/2018, Additional history exists COVID-19 Vaccine ( season) 2025 03/19/2022, 08/30/2021, 03/20/2021, Additional history exists Hepatitis C Screening Completed 12/10/2018 Hepatitis B Vaccines Aged Out No long er eligible based on patient's age to complete this topic Procedures * Due to [place] [employer] law, this organization might not be sharing negative HIV tests. Procedure Name Priority Date/Time Associated Diagnosis Comments CT CHEST INTERSTITIAL LUNG DISEASE/FIBROSIS Routine 06/13/2022 4:07 PM EST Interstitial lung disease from Last 3 Months or Most Recently Relevant to Health Maintenance Results * Due to [place] [employer] law, this organization might not be sharing [...] to obtain the completed interpretation. Workstation ID: [id number] Up-to-date CT equipment and radiation dose reduction [...] of vertebral body heights. Resulting Agency Comment [id number] Procedure Note Willy Solo MD - 06/17/2022 [...] possible to obtain thecompleted interpretation. Workstation ID: [id number] Up-to-date CT equipment and radiation dose reduction techniques wereemployed. CTDIvol: 15.8 - 18.3 mGy. DLP: 1236 mGy-cm. Alex Moctezuma MD [facility] [place] PROCEDURES Final Result from Last 3 Months or Most Recently Relevant to Health Maintenance Insurance [place] [address] Care Teams Environmental Field Technician Relationship Specialty Start Date End Date Louise Schultz [address] [place] [address] PCP - General Internal Medicine 10/18/21
--- OUTSIDE RECORDS SUMMARY | 2025-05-09 17:20 | XMS_ITS | Encounter Summary ---
Author Organization [facility] Address [address] [place] [address] Phone Care Team Providers Care Blending Tank Tender Helper Name Role Phone Louise Schultz MD Primary Care Provider [phone] Encounter Details Date Type Department Care Team (Late st Contact Info) Description 04/04/2025 Orders Only [facility] [address] [place] [address] LetitiaMerlyn segovia [address] [place] [address] [email or web address] Acquired hypothyroidism; Type 2 diabetes mellitus with hyperglycemia, with long-term current use of insulin Social History Tobacco Use Types Packs/Day Years [...] Description 07/05/2025 11:20 AM EST Office Visit [facility] [address] [place] [address] Erin Allison PA-C [address] [place] [phone] 09/29/2025 10:20 AM EDT Office Visit [facility] [address] [place] [address] Erin Allison PA-C [address] [place] [phone] 01/01/2026 11:00 AM EDT Office Visit [facility] [address] [place] [address] Ginny Duval MD [address] [place] [phone] documented as of this encounter Procedures Procedure [...] hyperglycemia, with long-term current use of insulin documented in this encounter Results * Alanine Aminotransferase (ALT) (04/03/2025 10:39 AM EST) Blood (Blood) Erin Allison PA-C LAB BLOOD BKR ORDE RABLES Final Result Performing Organization Address [facility] de Phone Number [facility] * Aspartate Aminotransferase (AST) (04/03/2025 10:39 AM EST) Blood (Blood) Erin lAlison PA-C LAB BLOOD BKR ORDE RABLES Final Result Performing Organization Address [facility] de Phone Number [facility] * Basic Metabolic Panel (BMP) (04/03/2025 10:39 AM EST) Blood (Blood) Erin Allison PA-C LAB BLOOD BKR ORDE RABLES Final Result Performing Organization Address [facility] de Phone Number [facility] * Thyroid Stimulating Hormone (TSH), with Reflex (04/03/2025 10:39 AM EST) Blood (Blood) Erin Allison PA-C LAB BLOOD BKR ORDE RABLES Final Result Performing Organization Address [facility] de Phone Number [facility] * Hemoglobin A1c (04/03/2025 10:38 AM EST) Blood (Blood) Erin Limonor PA-C LAB BLOOD BKR ORDE RABLES Final Result Performing Organization Address [facility] de Phone Number [facility] documented in this encounter Visit Diagnoses Diagnosis Acquired hypothyroidism Unspecified hypothyroidism Type 2 diabetes mellitus with hyperglycemia, with long-term current use of insulin documented in this encounter Care Teams Blending Tank Tender Helper Relationship Specialty Start Date End Date Louise Schultz MD [address] [place] [address] [email or web address] PCP - General 07/24/22 documented as of this encounter Additional Source Comments The information contained in this document represents components of the legal health record. It is not the complete legal health record[facility]
== END 2025-05-09 13:51 | disposition home or self-care (01) ==
LOC: HO.HPS 13:19
PROVIDERS: PCP Internal Medicine; Visit Provider Internal Medicine Pulmonary Disease
DX: Z99.81 Dependence on supplemental oxygen (principal); R94.2 Abnormal results of pulmonary function studies; R93.89 Abnormal findings on diagnostic imaging of other specified body structures
CPT/HCPCS: 99214

== ENCOUNTER → 2025-05-09 13:18 | Outpatient (BNVA) | payer MEDICARE, SELFPAY | PROVIDERS: PCP Internal Medicine; Visit Provider Internal Medicine Pulmonary Disease | DX: R94.2 Abnormal results of pulmonary function studies (principal); R93.89 Abnormal findings on diagnostic imaging of other specified body structures; J44.9 Chronic obstructive pulmonary disease, unspecified; R91.8 Other nonspecific abnormal finding of lung field; Z99.81 Dependence on supplemental oxygen | CPT/HCPCS: 99212 ==